=== PATIENT | female | born 1960 | race Caucasian/White ===

== ENCOUNTER 2017-01-18 07:09 | Day surgery (SDC) | payer OTHER ==
[2017-01-13 11:25] VITALS: BMI 53.0
[~2017-01-18] VITALS: Ht 167.6 cm; Wt 153.6 kg
[~2017-01-18 07:09] MED LIST: CEFAZOLIN 3000 MG/65 ML D5W IV SCH; CHOL1TAB2 PO; COEN150C4 PO; FURO-85 PO; LACTATED RINGER'S 1000ML 1,000 ML IV SCH; LEVO175T3 PO; MISCCAP80 PO; MULT-506 PO
[2017-01-18] MEDS ORDERED: ACET-1256 PO (07:36)
[2017-01-18 07:37] VITALS: BP 165/84; PULSE 86; TEMP 36.4; O2SAT 97; Ht 167.6 cm; Wt 153.6 kg
--- NOTE | 2017-01-18 08:11 | History & Physical Bridge Note ---
H&P Re-Evaluation Bridge Note: I have examined the patient, reviewed the History & Physical and in the interval since the performance of the History & Physical I have noted the following changes of clinical significance: No changes noted
[2017-01-18] MEDS ORDERED: ATROPINE SULFATE 0.1 MG/ML 5ML SYR IV PRN (08:15)
[2017-01-18] MEDS ORDERED: FENTANYL CITRATE INJ 50 MCG/1 ML 2 ML VIAL IV PRN (08:15)
[2017-01-18] MEDS ORDERED: HYDROmorphone INJ 1 MG/ML SYR IV PRN (08:15)
[2017-01-18] MEDS ORDERED: MEPERIDINE HCL 25 MG/ML CARP IV PRN (08:15)
[2017-01-18] MEDS ORDERED: ONDANSETRON INJ 2 MG/ML 2 ML VIAL IV PRN (08:15)
[2017-01-18] MEDS ORDERED: LABETALOL HCL IV 5 MG/ML 20ML IV PRN (08:15)
[2017-01-18] MEDS ORDERED: EpHEDrine SULFATE INJ 50 MG/ML AMP IV PRN (08:15)
[2017-01-18] MEDS ORDERED: LIDOCAINE HCL 1% 20 ML VIAL ONE (08:19)
[2017-01-18] MEDS ORDERED: LIDOCAINE 2% 20 MG/ML 5ML SYR ONE (08:19)
[2017-01-18] MEDS ORDERED: MIDAZOLAM HCL 1 MG/ML 2ML VIAL ONE ×3 (08:19→09:13)
[2017-01-18] MEDS ORDERED: FENTANYL CITRATE INJ 50 MCG/1 ML 2 ML VIAL ONE ×2 (08:19→09:12)
[2017-01-18] MEDS ORDERED: HEPARIN SOD (PORCINE) 1000 UNIT/ML 10 ML VIAL ONE (08:19)
[2017-01-18] MEDS ORDERED: BUPIVACAINE 0.5 % 5 MG/1 ML MPF 30ML VIAL ONE (08:19)
[2017-01-18] MEDS ORDERED: PROPOFOL IV EMULSION 10 MG/ML 20 ML VIAL IV ONE ×2 (08:19→09:09)
[2017-01-18] MEDS ORDERED: BACITRACIN OINT 15 GM TUBE ONE (08:20)
[2017-01-18 08:42] LABS: BUN/CREATININE RATIO 15.8 (10-20); CREATININE 0.55 mg/dl (0.60-1.20); POTASSIUM 3.5 mmol/L (3.5-5.1)
--- NOTE | 2017-01-18 09:51 | [facility] Post Operative Brief Note ---
Immediate Operative Summary Operative Date Jan 18, 2017. Pre-Operative Diagnosis Intravenous Access for chemotherapy Post-Operative Diagnosis Intravenous Access for chemotherapy Procedure(s) Performed Infusa-port Insertion into Right Internal Jugular Vein Surgeon Dr. Hernández Lumber Buyer Surgeon(s) none Estimated Blood Loss 5ml Findings normal finding Fluids (cc crystalloids) 1200ml Specimens None Drains none Anesthesia sedation + local Complication(s) None Disposition Recovery Room / PACU
[2017-01-18] MEDS ORDERED: SODIUM CHLORIDE 0.9% 1000ML 1,000 ML IV SCH (09:52)
[2017-01-18] MEDS ORDERED: OXYC-57 PO (09:55)
[2017-01-18] MEDS ORDERED: OXYCODONE/ACETAMINOPHEN 5-325 TAB PO PRN (10:00)
[2017-01-18] MEDS ORDERED: MoRPHine SULFATE 4 MG/ML 1 ML CARP\\VIAL IV PRN (10:00)
--- NOTE | 2017-01-18 10:02 | Discharge Instructions ---
Discharge Instructions Date of Service Jan 18, 2017. Visit Reason for Visit: Colon Cancer Discharge Discharge Diagnosis / Problem: S/P insertion of port catheter Discharge Goals Goal(s): Decrease discomfort, Improve function Activity Recommendations Activity Limitations: per Instructions/Follow-up section Lifting Limitations: no more than 25 pounds Exercise/Sports Limitations: gradually increase as tolerated May Resume Sexual Activity: when tolerated Shower/Bathe: may shower/bathe in 3 days Driving or Machine Use: resume 3 days after discharge Anesthesia . Post Anesthesia Instructions: If you have had General Anesthesia or IV Sedation: * Do not drive today. * Resume driving when surgeon permits. * Do not make important decisions or sign legal documents today. * Call surgeon for: 1. Temperature elevations greater than 101 degrees F. 2. Uncontrollable pain. 3. Excessive bleeding. 4. Persistent nausea and vomiting. 5. Medication intolerance (nausea, vomiting or rash). * For nausea and vomiting use only clear liquids such as: tea, soda, bouillon until nausea subsides, then gradually increase diet as tolerated. * If you have any concerns or questions, call your surgeon's office. If physician is unavailable and it is an emergency, call 911 or go to the nearest emergency room. . Instructions / Follow-Up Instructions / Follow-Up keep the dressing on for 4 days, she can take a shower on 01/22/2017, no driving while taking pain medicine, follow up 1 week, Diet Recommendations Recommended Home Diet: resume previous diet Procedures Procedures Performed: Infusa-port Insertion into Right Internal Jugular Vein Pending Studies Studies pending at discharge: no Medical Emergencies . Who to Call and When: Medical Emergencies: If at any time you feel your situation is an emergency, please call 911 immediately. . Non-Emergent Contact Non-Emergency issues call your: Surgeon Call Non-Emergent contact if: you have a fever, temperature is above 100.5, your pain is not controlled, your pain is worsening, wound has increased drainage, wound has increased redness . . "Provider Documentation" section prepared by Ez Hernández. [place] Drug Monitoring Program Search Results: no issues identified
[2017-01-18 10:17] VITALS: BP 124/93; PULSE 80; TEMP 36.5; O2SAT 96
--- NOTE | 2017-01-18 10:21 | DIAGNOSTIC IMAGING REPORT ---
CHEST ONE VIEW PORTABLE CLINICAL HISTORY: none dyspnea COMPARISON STUDY: 07/09/2010 FINDINGS: Moderate cardiomegaly. Central catheter in the superior vena cava. No evidence pneumothorax. IMPRESSION: Central catheter in the superior vena cava. No evidence of pneumothorax. Electronically signed by: Fredy Dunlap M.D. 01/18/2017 10:19 AM Dictated Date/Time: 01/18/2017 10:19 AM
--- NOTE | 2017-01-18 10:22 | Anesthesiology Progress Note ---
Anesthesia Post Op Note Date & Time Jan 18, 2017 at 10:21 Vital Signs Pain Intensity: 0 Vital Signs Past 12 Hours Date Time Temp Pulse Resp B/P Pulse Ox O2 Delivery O2 Flow Rate FiO2 01/18/17 10:05 36.0 74 17 129/80 100 Nasal Cannula 2 01/18/17 09:55 83 20 138/84 96 Nasal Cannula 2 01/18/17 09:49 36.0 78 12 142/78 98 Nasal Cannula 2 01/18/17 07:37 36.4 86 20 165/84 97 Room Air Notes Mental Status: alert / awake / arousable, participated in evaluation Pt Amnestic to Procedure: Yes Nausea / Vomiting: adequately controlled Pain: adequately controlled Airway Patency, RR, SpO2: stable & adequate BP & HR: stable & adequate Hydration State: stable & adequate Anesthetic Complications: no major complications apparent
--- NOTE | 2017-01-18 10:43 | OPERATIVE REPORT ---
DATE OF OPERATION: 01/18/2017 PREOPERATIVE DIAGNOSIS: Intravenous access for chemotherapy. POSTOPERATIVE DIAGNOSIS: Same. PROCEDURE: Port catheter insertion on the right internal jugular vein. SURGEON: Dr. Ez Hernández. COMPLICATIONS: None. FINDINGS: Normal findings. ESTIMATED BLOOD LOSS: About 5 mL. IV FLUIDS: 1200 mL. INDICATIONS FOR THE PROCEDURE: This is a 56-year-old female who was diagnosed with colon cancer. The patient in need [id number] insertion for chemotherapy. I did talk to the patient about the benefit and risk alternate procedure. I indicated the risks may include but not limited such as bleeding, infection, injury to the lung, may need chest tube insertion, dysfunction catheter, sepsis, and even . The patient understands. She signed informed consent and I answered all questions. DETAILS OF PROCEDURE: We brought the patient to the OR, put the patient in the supine position. The patient received SCD on bilateral legs to prevent DVT. The patient received 3 grams Ancef IV for prophylactic antibiotic. The patient received conscious sedation by the anesthesiology. I used ultrasound to locate the right internal jugular vein, put the marking pen whitney the site and then the patient's right side neck and upper chest was prepped and draped in routine sterile fashion. After time out, I injected local anesthesia by using 1% lidocaine mixed with 0.5% Marcaine on the right neck. Then I made a small incision about 0.5 cm and ultrasound guided I used a 15-gauge needle puncture the right internal jugular vein without difficulty. Good blood return. Then I passed the wire through the needle, removed the needle. Then I used the C-arm fluoro to confirm the catheter located in SVC. Then I injected local on the right side upper chest to make about 6 cm incision to create the pouch for the port. Hemostasis was obtained. Then I used the tunneler introducer connected to the pouch to the right neck incision, then I passed the catheter through the tunnel and then I used sheath catheter, passed the wire and introducer into the right internal jugular vein. I again used the C-arm conformed catheter located SVC. Then I passed the [id number] through the sheath. Then we removed the sheath. Again, used the C-arm to confirm the tip of the catheter located junction between the SVC to the right atrium. Then I sized the catheter, connected to the port. Then I used 2-0 Prolene to affix the port 3 points at 12 o'clock, 6 o'clock and 3 o'clock. I tied the suture and then using 2-0 Vicryl to close subcutaneous layer, interrupted and closed skin by using 4-0 Vicryl continuous running and then I used the injection needle connected to the port, easy blood returned. I injected the heparin saline about 10 mL through the port without difficulty. Then, we put the dressing on. The patient tolerated the procedure well. All the instrument, needle and sponge count correct x2 at the end of case. The patient transferred to recovery room in stable condition. After the procedure, I did talk to the patient and patient's family member about OR finding and procedure we did and also gave them the postop care instruction, they understand. I will follow up the patient in 1 week. I attest to the content of the Intraoperative Record and any orders documented therein. Any exceptions are noted below. MARTINEZ
[2017-01-18 10:45] VITALS: BP 131/76; PULSE 86; TEMP 36.5; O2SAT 96
[2017-01-19] MEDS ORDERED: CEFAZOLIN IV 2,000 MG/60 ML D5W IV ONE (06:00)
[2017-02-06] MEDS ORDERED: LEVO-459 PO (16:07)
== END 2017-01-18 11:15 | disposition home or self-care (01) ==
LOC: C.ACU 07:09
PROVIDERS: ATTEND Surgery
DX: C18.9 Malignant neoplasm of colon, unspecified (principal); C78.5 Secondary malignant neoplasm of large intestine and rectum; I10 Essential (primary) hypertension; M19.90 Unspecified osteoarthritis, unspecified site; E66.01 Morbid (severe) obesity due to excess calories; Z68.43 Body mass index [BMI] 50.0-59.9, adult; Z88.5 Allergy status to narcotic agent; Z90.89 Acquired absence of other organs; Z96.643 Presence of artificial hip joint, bilateral; Z98.890 Other specified postprocedural states

== ENCOUNTER 2017-02-04 23:33 | Inpatient (IN) | payer OTHER ==
[~2017-02-04] VITALS: Ht 170.2 cm; Wt 149.0 kg
[~2017-02-04 23:33] MED LIST changes: +ACET-1256 PO; -CEFAZOLIN 3000 MG/65 ML D5W IV SCH; -COEN150C4 PO; -LACTATED RINGER'S 1000ML 1,000 ML IV SCH
--- NOTE | 2017-02-05 01:19 | EMERGENCY ROOM VISIT NOTE ---
History Report prepared by Lazara: Sharon Ramachandran Under the Supervision of: Dr. Carin Fernández D.O. First contact with patient: 00:14 Chief Complaint: FEVER Stated Complaint: FEVER 101.7 History of Present Illness The patient is a 56 year old female who presents to the Emergency Room with complaints of a persistent fever that began today. She currently rates her discomfort as a 7/10 in severity. The patient states that she is currently undergoing chemotherapy for colon cancer that she has had for the past 10 years. She states that she is currently undergoing a new chemotherapy, noting increased, nausea, vomiting, and diarrhea. The patient states that she was supposed to receive chemotherapy , but did not because her white blood cell count was 2.45 and her ANC was 1.24. She states that she was told if she develops a fever she should go to the emergency department, noting that her fever was up to 101.7 degrees Fahrenheit today. The patient notes back pain, abdominal gas, and burning with urination today. She states that she had a port placed three weeks ago. The patient denies getting a flu shot this year. Source of History: patient Onset: today Position: other (global) Symptom Intensity: 7/10 Quality: other (fever) Timing: other (persistent) Associated Symptoms: + back pain, + diarrhea, + nausea, + urinary symptoms ( burning with urination), + vomiting Note: Associated Symptoms: abdominal gas+ Review of Systems See HPI for pertinent positives & negatives. A total of 10 systems reviewed and were otherwise negative. Past Medical & Surgical Medical Problems: (1) Cholelithiasis Nos (2) Hepatomegaly (3) Hx Of Colonic Malignancy (4) Hypertension Nos (5) Hypothyroidism (6) Hypothyroidism Nos (7) Mal Atul Rectosigmoid Jct (8) Sepsis Surgical Problems: (1) History of hysterectomy (2) S/P appendectomy (3) S/P cholecystectomy Family History Cancer Diabetes mellitus Gallbladder disease Hypertension Lung disease Social History Smoking Status: Never Smoker Alcohol Use: none Marital Status: Housing Status: lives alone Occupation Status: employed Current/Historical Medications Scheduled Cholecalciferol (Vitamin D-3), 1 TAB PO QAM Levothyroxine Sodium (Levothyroxine Sodium), 1 TAB PO QAM Multivitamin (Multivitamin), 1 TAB PO QAM Probiotic Product (Probiotic), 1 CAP PO QAM Scheduled PRN Acetaminophen (Tylenol), 1,000 MG PO Q6 PRN for Pain Furosemide (Lasix), 20 MG PO DAILY PRN for PRN Allergies Coded Allergies: Morphine (Verified Adverse Reaction, Intermediate, GI SYMPTOMS, CAUSES Nausea and vomitting, 02/05/17) Physical Exam Vital Signs Date Time Temp Pulse Resp B/P Pulse Ox O2 Delivery O2 Flow Rate FiO2 02/05/17 02:50 89 20 107/70 97 Room Air 02/04/17 23:52 38.5 92 20 193/92 97 Room Air Physical Exam HEENT: Head - normocephalic and atraumatic Pupils are equal, round, and reactive to light. Extraocular eye muscles are intact, and sclera are anicteric. Nose - moist nasal mucosa without discharge. Mouth - dry buccal mucosa. Oropharynx is nonerythematous and there is no tonsillar exudate or edema noted. Neck: Supple; no JVD, nuchal rigidity, cervical lymphadenopathy. Chest: Surgical scar on right anterior chest that is well healed. Heart: Regular rate and rhythm. There is a normal S1 and S2 with no murmurs, clicks, or gallops appreciated. Lungs: Clear to auscultation bilaterally with no wheezes, rales, or rhonchi. Abdomen: Soft, completely nontender, nondistended, with good bowel sounds. There are no palpable pulsatile masses or hepatosplenomegaly. There is no guarding, rigidity, or rebound noted. Extremities: No evidence of cyanosis, clubbing, or edema. There are easily palpable peripheral pulses. Skin: warm and dry with good turgor and no rashes. Medical Decision & Procedures ER Provider Diagnostic Interpretation: 1 view chest x-ray interpreted by me: mediport in place, no obvious pulmonary infiltrate Laboratory Results 02/05/17 01:55 Red Blood Count 3.75, Mean Corpuscular Volume 94.7, Mean Corpuscular Hemoglobin 32.3, Mean Corpuscular Hemoglobin Concent 34.1, Mean Platelet Volume 9.3, Neutrophils (%) (Auto) 42.1, Lymphocytes (%) (Auto) 40.4, Monocytes (%) (Auto) 14.7, Eosinophils (%) (Auto) 2.4, Basophils (%) (Auto) 0.4, Neutrophils # (Auto ) 1.03, Lymphocytes # (Auto) 0.99, Monocytes # (Auto) 0.36, Eosinophils # (Auto ) 0.06, Basophils # (Auto) 0.01 02/05/17 01:55 Test 02/05/17 01:55 02/05/17 02:01 White Blood Count 2.45 K/uL (4.8-10.8) Red Blood Count 3.75 M/uL (4.2-5.4) Hemoglobin 12.1 g/dL (12.0-16.0) Hematocrit 35.5 % (37-47) Mean Corpuscular Volume 94.7 fL (80-100) Mean Corpuscular Hemoglobin 32.3 pg (25-34) Mean Corpuscular Hemoglobin Concent 34.1 g/dl (32-36) Platelet Count 205 K/uL (130-400) Mean Platelet Volume 9.3 fL (7.4-10.4) Neutrophils (%) (Auto) 42.1 % Lymphocytes (%) (Auto) 40.4 % Monocytes (%) (Auto) 14.7 % Eosinophils (%) (Auto) 2.4 % Basophils (%) (Auto) 0.4 % Neutrophils # (Auto) 1.03 K/uL (1.4-6.5) Lymphocytes # (Auto) 0.99 K/uL (1.2-3.4) Monocytes # (Auto) 0.36 K/uL (0.11-0.59) Eosinophils # (Auto) 0.06 K/uL (0-0.5) Basophils # (Auto) 0.01 K/uL (0-0.2) RDW Standard Deviation 45.1 fL (36.4-46.3) RDW Coefficient of Variation 13.1 % (11.5-14.5) Immature Granulocyte % (Auto) 0.0 % Immature Granulocyte # (Auto) 0.00 K/uL (0.00-0.02) Prothrombin Time 11.7 SECONDS (9.0-12.0) Prothromb Time International Ratio 1.1 (0.9-1.1) Activated Partial Thromboplast Time 28.3 SECONDS (21.0-31.0) Partial Thromboplastin Ratio 1.1 Anion Gap 7.0 mmol/L (3-11) Est Creatinine Clear Calc Drug Dose 149.5 ml/min Estimated GFR () 114.6 Estimated GFR (Non- 98.9 BUN/Creatinine Ratio 13.8 (10-20) Calcium Level 7.8 mg/dl (8.5-10.1) Magnesium Level 1.9 mg/dl (1.8-2.4) Total Bilirubin 0.4 mg/dl (0.2-1) Aspartate Amino Transf (AST/SGOT) 34 U/L (15-37) Alanine Aminotransferase (ALT/SGPT) 51 U/L (12-78) Alkaline Phosphatase 103 U/L (45-117) Total Protein 6.4 gm/dl (6.4-8.2) Albumin 2.8 gm/dl (3.4-5.0) Globulin 3.6 gm/dl (2.5-4.0) Albumin/Globulin Ratio 0.8 (0.9-2) Thyroid Stimulating Hormone (TSH) 3.040 uIu/ml (0.300-4.500) Urine Color DK YELLOW Urine Appearance CLEAR (CLEAR) Urine pH 5.0 (4.5-7.5) Urine Specific Guild 1.022 (1.000-1.030) Urine Protein NEG (NEG) Urine Glucose (UA) NEG (NEG) Urine Ketones NEG (NEG) Urine Occult Blood NEG (NEG) Urine Nitrite NEG (NEG) Urine Bilirubin NEG (NEG) Urine Urobilinogen NEG (NEG) Urine Leukocyte Esterase TRACE (NEG) Urine WBC (Auto) 1-5 /hpf (0-5) Urine RBC (Auto) 0-4 /hpf (0-4) Urine Hyaline Casts (Auto) 1-5 /lpf (0-5) Urine Epithelial Cells (Auto) 10-20 /lpf (0-5) Urine Bacteria (Auto) NEG (NEG) Bedside Lactic Acid Venous 0.70 mmol/L (0.90-1.70) Laboratory results per my review. Medications Administered Medications (Trade) Dose Ordered Sig/Erlinda Route Start Time Stop Time Status Last Admin Dose Admin Piperacillin Sod/ Tazobactam Sod 4.5 gm 4.5 gm NOW STAT IV 02/05/17 03:10 02/05/17 03:13 DC 02/05/17 03:19 4.5 GM Vancomycin HCl/ Sodium Chloride (Vancomycin Inj/ Nss 250ml) 270 ml @ 125 mls/hr NOW STAT IV 02/05/17 03:10 02/05/17 05:19 DC 02/05/17 03:52 125 MLS/HR Procedure The patient was treated with Vancomycin HCl 1000 mg/Sodium Chloride 270 ml @ 125 mls/hr IV, Zosyn IV 4.5 gm IV. ECG Indication: other (fever) Rate (beats per minute): 87 Rhythm: normal sinus Findings: no acute ischemic change, no ectopy ED Course 0047: Past medical records reviewed. The patient was evaluated in room C2B. A complete history and physical exam was performed. A septic protocol was performed. The patient was placed in isolation for known neutropenia. The patient went for a chest x-ray as described above. 0150: The patient remained hemodynamically stable. Absolute neutrophil count remains low 0310: Ordered Vancomycin HCl 1000 mg/Sodium Chloride 270 ml @ 125 mls/hr IV, Zosyn IV 4.5 gm IV. 0312: I reevaluated the patient and she is resting comfortably. I discussed the exam findings with her and I discussed the treatment plan. She verbalized complete understanding and agreement. She will be evaluated for further treatment. 0322: I discussed the patients case with Angely Morales. He is going to evaluate the patient for further treatment. Medical Decision The patient is a 56 year old female who presents to the ED with a fever. Differential diagnosis includes sepsis, bacteremia, neutropenia, cystitis, pyelonephritis, gastroenteritis. Lab interpretation: lactic acid .7, white count 2.45, hemoglobin 12.1, neutrophil count 1.03, normal renal function, normal LFTs, normal glucose and TSH, normal CoAgs, urine positive for trace leukocyte esterase and positive epithelial cells This is a 48-year-old female patient with history of colon cancer receiving chemotherapy who presents to the emergency department with a fever. The patient was known to be neutropenic from a couple of days ago. Repeat laboratory studies today reveal similar findings. As for a source of the possible fever, the patient does describe some urinary symptoms and an occasional cough. The urine does not appear to be infected. The patient meets sepsis criteria with an unknown source. She is also neutropenic. She was prophylaxed with IV antibiotics. She remained hemodynamically stable throughout her stay here in the emergency department. I discussed the case with the [facility] Hospitalist and they will evaluate for further management. Consults Time Called: [phone] Consulting Physician: Angely Morales Returned Call: [phone] I discussed the patients case with Angely Morales. He is going to evaluate the patient for further treatment. Impression Primary Impression: Neutropenic sepsis Scribe Attestation The scribe's documentation has been prepared under my direction and personally reviewed by me in its entirety. I confirm that the note above accurately reflects all work, treatment, procedures, and medical decision making performed by me. Departure Information Dispostion Being Evaluated By Hospitalist Referrals Diogenes Garcia M.D. (PCP)
[2017-02-05 02:10] LABS: BASO % 0.4 %; BASO ABS # 0.01 K/uL (0-0.2); COMPLETE YES; EOS % 2.4 %; HEMATOCRIT 35.5 % (37-47); LYMPH % 40.4 %; LYMPH ABS # 0.99 K/uL (1.2-3.4); MEAN CELL VOLUME 94.7 fL (80-100); MEAN CORPUSCULAR HEMOGLOBIN 32.3 pg (25-34); MEAN CORPUSCULAR HGB CONC 34.1 g/dl (32-36); MEAN PLATELET VOLUME 9.3 fL (7.4-10.4); MONO % 14.7 %; NEUT % 42.1 %; PLATELET COUNT 205 K/uL (130-400); RED BLOOD COUNT 3.75 M/uL (4.2-5.4); WHITE BLOOD COUNT 2.45 K/uL (4.8-10.8)
[2017-02-05 02:17] LABS: URINE APPEARANCE CLEAR (CLEAR); URINE BILIRUBIN NEG (NEG); URINE COLOR DK YELLOW; URINE NITRITE NEG (NEG); URINE SPECIFIC GRAVITY 1.022 (1.000-1.030); UROBILINOGEN NEG (NEG); ZZUR CULT IF INDIC CLEAN CATCH NO
[2017-02-05 02:19] LABS: MANUAL MICROSCOPIC REQUIRED? NO; REVIEW REQ? NO
[2017-02-05 02:20] LABS: INR 1.1 (0.9-1.1); PARTIAL THROMBOPLASTIN RATIO 1.1; PROTHROMBIN TIME (PATIENT) 11.7 SECONDS (9.0-12.0)
[2017-02-05 02:28] LABS: BUN/CREATININE RATIO 13.8 (10-20); CALCIUM 7.8 mg/dl (8.5-10.1); CREATININE 0.63 mg/dl (0.60-1.20); POTASSIUM 3.7 mmol/L (3.5-5.1)
[2017-02-05 02:30] LABS: ALB/GLOB RATIO 0.8 (0.9-2)
[2017-02-05] MEDS ORDERED: PIPERACILLIN/TAZOBACTAM 4.5 GM/100ML D5W IV STA (03:10)
[2017-02-05] MEDS ORDERED: VANCOMYCIN INJ 1,000 MG in SODIUM CHLORIDE 0.9% 250ML 250 ML IV STA (03:10)
[2017-02-05 03:38] LABS: MAGNESIUM 1.9 mg/dl (1.8-2.4)
[2017-02-05 03:56] LABS: THYROID STIMULATING HORMONE 3.04 uIu/ml (0.300-4.500)
[2017-02-05] MEDS ORDERED: ACETAMINOPHEN 325 MG TAB PO PRN (04:00)
[2017-02-05] MEDS ORDERED: TRAMADOL HCL 50 MG TAB PO PRN (04:15)
[2017-02-05] MEDS ORDERED: ONDANSETRON INJ 2 MG/ML 2 ML VIAL IV PRN (04:15)
[2017-02-05] MEDS ORDERED: KETOROLAC TROMETHAMINE 30 MG/ML VIAL IV PRN (04:15)
[2017-02-05] MEDS ORDERED: LORAZEPAM 2 MG/ML 1 ML VIAL IV PRN (04:15)
[2017-02-05] MEDS ORDERED: ACETAMINOPHEN 325 MG TAB PO STA (04:22)
[2017-02-05] MEDS ORDERED: VANCOMYCIN INJ 1,800 MG in SODIUM CHLORIDE 0.9% 500ML 500 ML IV STA (04:58)
--- NOTE | 2017-02-05 06:09 | DIAGNOSTIC IMAGING REPORT ---
CHEST ONE VIEW PORTABLE CLINICAL HISTORY: Sepsis fever COMPARISON STUDY: 01/18/2017 FINDINGS: Central catheter in the proximal superior vena cava. Lungs remain generally clear. Moderate stable cardiomegaly. IMPRESSION: Chronic change. No acute process. Electronically signed by: Fredy Dunlap M.D. 02/05/2017 6:07 AM Dictated Date/Time: 02/05/2017 6:07 AM
[2017-02-05 06:13] VITALS: BP 143/82; PULSE 82; TEMP 37.1; O2SAT 96; BMI 49.4
[2017-02-05] MEDS ORDERED: NSS + 20MEQ KCL 1000ML 1,000 ML IV ONE (06:15)
[2017-02-05] MEDS ORDERED: METRONIDAZOLE / NSS 500 MG in PREMIXED NSS 100 ML IV STA (06:18)
[2017-02-05] MEDS: LEVOTHYROXINE 175 MCG TAB PO SCH (06:25)
--- NOTE | 2017-02-05 06:29 | HISTORY & PHYSICAL EXAMINATION ---
DATE OF ADMISSION: 02/04/2017 PRIMARY CARE DOCTOR: Dr. Garcia Hx obtained from px and records. CHIEF COMPLAINT: Fever. HISTORY OF PRESENT ILLNESS: Medical history is significant for recurrent colorectal cancer w/ poss lung mets status post surgery, radiation and ongoing chemotherapy; hypothyroidism. Recent confinement was in March 2015 for bowel obstruction, resolved with conservative management. Px was diagnosed to have rectal cancer in 2006. She underwent surgery, radiation and chemotherapy. 2008 - noted to have local recurrence; subsequently underwent APR and chemotherapy. 2011 - PET-CT showed increased activity in the pelvis. Ex-lap showed uterine involvement. Patient underwent a total abdominal hysterectomy bilateral salpingo oophorectomy and chemotx. June 2015 - PET-CT showed abnormal nodes, R groin Chemotherapy re-initiated. March 2016, CAT scan showed probable lung mets. Erbitux and Xeloda given. Progression of disease/CEA level increase despite chemotx. 12[place]2016 [place] [facility] [place]. [place] 01/2017 Aport placed. New chemotx agent (Irinotecan) initiated. Yesterday px had fever, increasing nausea, loose stools from ostomy, nonbloody, abdominal cramping. dry cough. dysuria sx. At the Emergency Room, the patient received Iv Vancomycin and Zosyn. MEDICAL HISTORY: As above. SURGERIES: She has had hysterectomy, oophorectomy, appendectomy, cholecystectomy and bowel surgery. HOME MEDICATIONS: Include; Tylenol, vitamin D, Lasix p.r.n., levothyroxine, multivitamins and probiotic. ALLERGIES: TO MORPHINE. FAMILY HISTORY: Hypertension. PERSONAL AND SOCIAL HISTORY: Nonsmoker. No chronic intake of alcoholic beverages. On disability. REVIEW OF SYSTEMS: As per HPI. all other ROS negative PHYSICAL EXAMINATION: VITAL SIGNS: Blood pressure was noted to be 193/92 later 130/80, pulse rate 90 , RR 20, temperature 38.5 and sats 97% on room air. GENERAL: Noted to be obese, comfortable, in no respiratory distress. SKIN: Normal color. HEENT: [place] palpebral conjunctivae. Dry mucosa. NECK: Short neck. CHEST: Clear to auscultation. HEART: Regular rate and rhythm. ABDOMEN: Abdominal distention, no overt tenderness. Ostomy bag noted. EXTREMITIES: Minimal LE edema. no tenderness NEUROLOGIC: No gross focality. LABORATORIES: Hemoglobin was noted to be 12.1, white cell count 2.45 and platelets 205. Sodium 139, potassium 3.7, chloride 107 CO2 27, BUN 9, creatinine 0.6 and glucose was noted to be 100. TSH 3.04 Chest x-ray; atelectasis, cardiomegaly as per my interpretation. UA trace WBC esterase is positive, with epithelial cells ASSESSMENT: Sepsis in an immunocompromised hx recurrent rectal cancer with possible lung metastasis sp surgery, radiation and ongoing chemotherapy. Possible sources : UTI, vascular device (Aport), C. diff, hypothyroidism, euthyroid as of today's TSH PLAN: GMF CS, stool C. diff Levaquin, IV Vancomycin for now de-escalate tx pending CS results availability Flagyl for presumptive C. diff in light of sepsis criteria. Discontinue Flagyl if C. diff negative. DVT prophylaxis, Lovenox subQ Full code. MTDD
[2017-02-05] MEDS ORDERED: LEVOFLOXACIN CONSULT ACTIVE PRN (08:00)
[2017-02-05] MEDS ORDERED: VANCOMYCIN CONSULT ACTIVE PRN (08:00)
[2017-02-05] MEDS: ENOXAPARIN 40 MG/0.4 ML SYR SQ SCH (08:09)
[2017-02-05] MEDS: LACTOBACILLUS ACIDOPHILUS (FLORANEX) TAB PO SCH (08:09)
[2017-02-05] MEDS: MULTIVITAMIN TAB PO SCH (08:09)
--- NOTE | 2017-02-05 09:43 | Pharmacy Progress Note ---
Pharmacy Antibiotic Consult Date of Service: February 05, 2017. Pharmacy Dosing Scope Pharmacy is consulted to initiate IV Vanco/PO LVQ dosing therapy, order appropriate labs and adjust drug dose/frequency. Subjective The patient is a 56 year old female admitted on February 05, 2017 at 03:58. Objective Height (Feet): 5 Height (Inches): 8.00 Weight (Kilograms): 147.400 Lab Results (24hrs): Test 02/05/17 01:55 02/05/17 02:01 White Blood Count 2.45 K/uL (4.8-10.8) Red Blood Count 3.75 M/uL (4.2-5.4) Hemoglobin 12.1 g/dL (12.0-16.0) Hematocrit 35.5 % (37-47) Mean Corpuscular Volume 94.7 fL (80-100) Mean Corpuscular Hemoglobin 32.3 pg (25-34) Mean Corpuscular Hemoglobin Concent 34.1 g/dl (32-36) Platelet Count 205 K/uL (130-400) Mean Platelet Volume 9.3 fL (7.4-10.4) Neutrophils (%) (Auto) 42.1 % Lymphocytes (%) (Auto) 40.4 % Monocytes (%) (Auto) 14.7 % Eosinophils (%) (Auto) 2.4 % Basophils (%) (Auto) 0.4 % Neutrophils # (Auto) 1.03 K/uL (1.4-6.5) Lymphocytes # (Auto) 0.99 K/uL (1.2-3.4) Monocytes # (Auto) 0.36 K/uL (0.11-0.59) Eosinophils # (Auto) 0.06 K/uL (0-0.5) Basophils # (Auto) 0.01 K/uL (0-0.2) RDW Standard Deviation 45.1 fL (36.4-46.3) RDW Coefficient of Variation 13.1 % (11.5-14.5) Immature Granulocyte % (Auto) 0.0 % Immature Granulocyte # (Auto) 0.00 K/uL (0.00-0.02) Prothrombin Time 11.7 SECONDS (9.0-12.0) Prothromb Time International Ratio 1.1 (0.9-1.1) Activated Partial Thromboplast Time 28.3 SECONDS (21.0-31.0) Partial Thromboplastin Ratio 1.1 Sodium Level 139 mmol/L (136-145) Potassium Level 3.7 mmol/L (3.5-5.1) Chloride Level 105 mmol/L (98-107) Carbon Dioxide Level 27 mmol/L (21-32) Anion Gap 7.0 mmol/L (3-11) Blood Urea Nitrogen 9 mg/dl (7-18) Creatinine 0.63 mg/dl (0.60-1.20) Est Creatinine Clear Calc Drug Dose 149.5 ml/min Estimated GFR () 114.6 Estimated GFR (Non- 98.9 BUN/Creatinine Ratio 13.8 (10-20) Random Glucose 100 mg/dl (70-99) Calcium Level 7.8 mg/dl (8.5-10.1) Magnesium Level 1.9 mg/dl (1.8-2.4) Total Bilirubin 0.4 mg/dl (0.2-1) Aspartate Amino Transf (AST/SGOT) 34 U/L (15-37) Alanine Aminotransferase (ALT/SGPT) 51 U/L (12-78) Alkaline Phosphatase 103 U/L (45-117) Total Protein 6.4 gm/dl (6.4-8.2) Albumin 2.8 gm/dl (3.4-5.0) Globulin 3.6 gm/dl (2.5-4.0) Albumin/Globulin Ratio 0.8 (0.9-2) Thyroid Stimulating Hormone (TSH) 3.040 uIu/ml (0.300-4.500) Urine Color DK YELLOW Urine Appearance CLEAR (CLEAR) Urine pH 5.0 (4.5-7.5) Urine Specific [place] 1.022 (1.000-1.030) Urine Protein NEG (NEG) Urine Glucose (UA) NEG (NEG) Urine Ketones NEG (NEG) Urine Occult Blood NEG (NEG) Urine Nitrite NEG (NEG) Urine Bilirubin NEG (NEG) Urine Urobilinogen NEG (NEG) Urine Leukocyte Esterase TRACE (NEG) Urine WBC (Auto) 1-5 /hpf (0-5) Urine RBC (Auto) 0-4 /hpf (0-4) Urine Hyaline Casts (Auto) 1-5 /lpf (0-5) Urine Epithelial Cells (Auto) 10-20 /lpf (0-5) Urine Bacteria (Auto) NEG (NEG) Bedside Lactic Acid Venous 0.70 mmol/L (0.90-1.70) Micro Results: Item Value Date Time Urine Culture Received 02/05/17 0201 Urine , Clean Catch Pending Blood Culture Received 02/05/17 0200 Blood Pending Blood Culture Received 02/05/17 0155 Blood Pending Assessment & Plan 02/05/17: Pt is a 56yo F p/w fever (38.5) and tachycardia. She is leukopenic 2/2 to recent initiation of Irinotecan ChTx. Today she is afebrile, RR/HR both WNL. UC and BCx2 are both currently pending. She does not have a h/o of MDRO. Renal fxn looks excellent. Pt population p'kinetics: t1/2: 6.6hrs and ke= 0.104. Her BMI is concerning for Vanco accumulation; however, she is immunosuppressed and feel comfortable going with a more aggressive Vanco dose for 24-48hrs. Vanco: * Received two Vanco LD doses totalling 19mg/kg + 1800mg * Set to receive Vanco 2200mg (~15mg/kg) IV every 8 hours. * Goal trough level estimate: between 15 - 20 mcg/mL. * Trough level has been ordered for: at 0530 prior to the third MD. PO LVQ: * Dosed correctly Thank you for consulting the pharmacy kinetic team and including us in the care of Ms. Martines. 02/06/17: Ms. Martines's trough came back supratherapeutic at 21.7mcg/mL. I suspect true Css to be closer to 25 or 30. I have scaled back on both the dose and dosing interval to decrease the peak and trough, respectively. New dose: Vanco: 2000mg (~13.5mg/kg) q10 set to start roughly ten hours after the last dose. New trough ordered for 02/07/17 @ 1130. Blood cx's both yield NGTD, Stool is negative for C.diff, MRSA nasal swab is negative. UC is still pending. She continues to be afebrile. Leukopenia continues. Pharmacy will continue to follow and will adjust dose/frequency as necessary. Thank you
[2017-02-05] MEDS: LEVOFLOXACIN 750 MG TAB PO SCH (11:29)
[2017-02-05 11:36] VITALS: BP 127/77; PULSE 74; TEMP 36.7; O2SAT 100
[2017-02-05] MEDS ORDERED: METRONIDAZOLE / NSS 500 MG in PREMIXED NSS 100 ML IV SCH (14:00)
[2017-02-05] MEDS: VANCOMYCIN INJ 2,200 MG in SODIUM CHLORIDE 0.9% 500ML 500 ML IV SCH ×2 (14:12→21:49)
[2017-02-05 15:05] VITALS: BP 129/78; PULSE 86; TEMP 37.2; O2SAT 91
--- NOTE | 2017-02-05 17:06 | Progress Note ---
Internal Med Progress Note Date of Service: February 05, 2017. Provider Documentation: SUBJECTIVE: no fever or chills feels fine complains of being constipated no nausea or abdominal pain OBJECTIVE: Vital Signs-as noted below Exam: General-no sign of distress Lungs-CTA Heart-regular S1/S2 Abdomen-soft non tender Extremities-no rash or deformity Neuro-AAO x3, no focal deficit Lab data as noted below. ASSESSMENT & PLAN: This is a [age] yo F hx of colon ca on chemo tx presented to ED with fever, tachycardia FEVER IN AN IMMUNOCOMPROMISED PT : no evidence of sepsis , normal lactic acid , hx of recurrent colon ca sp surgery, radiation and ongoing chemotherapy recent initiation of Irinotecan ChTx. ordered for blood and urine culture -report pending pt will be continued with Vanco and Cefepime till final culture is available stool C diff negative Flagyl D.fernando PANCYTOPENIA : due to recent chemo follow daily CBC with diff DVT PROPHYLAXIS Lovenox DISPOSITION discharge home when medically stable Vital Signs: Date Time Temp Pulse Resp B/P Pulse Ox O2 Delivery O2 Flow Rate FiO2 02/05/17 20:00 Room Air 02/05/17 19:37 37.2 92 20 127/76 99 Room Air 02/05/17 15:32 Room Air 02/05/17 15:05 37.2 86 18 129/78 91 Room Air 02/05/17 11:36 36.7 74 20 127/77 100 Room Air 02/05/17 08:20 Room Air 02/05/17 06:13 37.1 82 16 143/82 96 Room Air 02/05/17 04:59 37.3 85 20 106/65 97 Room Air 02/05/17 02:50 89 20 107/70 97 Room Air 02/04/17 23:52 38.5 92 20 193/92 97 Room Air Lab Results: Results Past 24 Hours Test 02/05/17 01:55 02/05/17 02:01 Range/Units White Blood Count 2.45 4.8-10.8 K/uL Red Blood Count 3.75 4.2-5.4 M/uL Hemoglobin 12.1 12.0-16.0 g/dL Hematocrit 35.5 37-47 % Mean Corpuscular Volume 94.7 80-100 fL Mean Corpuscular Hemoglobin 32.3 25-34 pg Mean Corpuscular Hemoglobin Concent 34.1 32-36 g/dl Platelet Count 205 130-400 K/uL Mean Platelet Volume 9.3 7.4-10.4 fL Neutrophils (%) (Auto) 42.1 % Lymphocytes (%) (Auto) 40.4 % Monocytes (%) (Auto) 14.7 % Eosinophils (%) (Auto) 2.4 % Basophils (%) (Auto) 0.4 % Neutrophils # (Auto) 1.03 1.4-6.5 K/uL Lymphocytes # (Auto) 0.99 1.2-3.4 K/uL Monocytes # (Auto) 0.36 0.11-0.59 K/uL Eosinophils # (Auto) 0.06 0-0.5 K/uL Basophils # (Auto) 0.01 0-0.2 K/uL RDW Standard Deviation 45.1 36.4-46.3 fL RDW Coefficient of Variation 13.1 11.5-14.5 % Immature Granulocyte % (Auto) 0.0 % Immature Granulocyte # (Auto) 0.00 0.00-0.02 K/uL Prothrombin Time 11.7 9.0-12.0 SECONDS Prothromb Time International Ratio 1.1 0.9-1.1 Activated Partial Thromboplast Time 28.3 21.0-31.0 SECONDS Partial Thromboplastin Ratio 1.1 Sodium Level 139 136-145 mmol/L Potassium Level 3.7 3.5-5.1 mmol/L Chloride Level 105 98-107 mmol/L Carbon Dioxide Level 27 21-32 mmol/L Anion Gap 7.0 3-11 mmol/L Blood Urea Nitrogen 9 7-18 mg/dl Creatinine 0.63 0.60-1.20 mg/dl Est Creatinine Clear Calc Drug Dose 149.5 ml/min Estimated GFR () 114.6 Estimated GFR (Non- 98.9 BUN/Creatinine Ratio 13.8 10-20 Random Glucose 100 70-99 mg/dl Calcium Level 7.8 8.5-10.1 mg/dl Magnesium Level 1.9 1.8-2.4 mg/dl Total Bilirubin 0.4 0.2-1 mg/dl Aspartate Amino Transf (AST/SGOT) 34 15-37 U/L Alanine Aminotransferase (ALT/SGPT) 51 12-78 U/L Alkaline Phosphatase 103 45-117 U/L Total Protein 6.4 6.4-8.2 gm/dl Albumin 2.8 3.4-5.0 gm/dl Globulin 3.6 2.5-4.0 gm/dl Albumin/Globulin Ratio 0.8 0.9-2 Thyroid Stimulating Hormone (TSH) 3.040 0.300-4.500 uIu/ml Urine Color DK YELLOW Urine Appearance CLEAR CLEAR Urine pH 5.0 4.5-7.5 Urine Specific [place] 1.022 1.000-1.030 Urine Protein NEG NEG Urine Glucose (UA) NEG NEG Urine Ketones NEG NEG Urine Occult Blood NEG NEG Urine Nitrite NEG NEG Urine Bilirubin NEG NEG Urine Urobilinogen NEG NEG Urine Leukocyte Esterase TRACE NEG Urine WBC (Auto) 1-5 0-5 /hpf Urine RBC (Auto) 0-4 0-4 /hpf Urine Hyaline Casts (Auto) 1-5 0-5 /lpf Urine Epithelial Cells (Auto) 10-20 0-5 /lpf Urine Bacteria (Auto) NEG NEG Bedside Lactic Acid Venous 0.70 0.90-1.70 mmol/L Microbiology Results 02/05/17 Blood Culture, Received Pending 02/05/17 Blood Culture, Received Pending 02/05/17 C.difficile Toxin B Gene (PCR) - Final, Complete No C. difficile toxin B gene detected 02/05/17 Urine Culture, Received Pending
[2017-02-05 19:37] VITALS: BP 127/76; PULSE 92; TEMP 37.2; O2SAT 99
[2017-02-05] MEDS ORDERED: SODIUM CHLORIDE 0.9% 1000ML 1,000 ML IV SCH (23:00)
[2017-02-05] MEDS ORDERED: POLYETHYLENE (MIRALAX) 17 GM PACK PO PRN (23:00)
[2017-02-05 23:15] VITALS: BP 106/72; PULSE 90; TEMP 37.1; O2SAT 98
[2017-02-06 04:47] VITALS: BP 102/65; PULSE 89; TEMP 37.2; O2SAT 92
[2017-02-06 05:03] VITALS: Ht 170.2 cm; Wt 149.0 kg
[2017-02-06] MEDS ORDERED: VANCOMYCIN TROUGH ONE (05:30)
[2017-02-06] MEDS: VANCOMYCIN INJ 2,200 MG in SODIUM CHLORIDE 0.9% 500ML 500 ML IV SCH (05:44)
[2017-02-06] MEDS: LEVOTHYROXINE 175 MCG TAB PO SCH (05:46)
[2017-02-06 06:07] LABS: BASO % 0.8 %; BASO ABS # 0.02 K/uL (0-0.2); COMPLETE YES; EOS % 2.7 %; HEMATOCRIT 34.6 % (37-47); IG% 0.4 %; LYMPH % 33.6 %; LYMPH ABS # 0.88 K/uL (1.2-3.4); MEAN CELL VOLUME 95.6 fL (80-100); MEAN CORPUSCULAR HEMOGLOBIN 31.5 pg (25-34); MEAN CORPUSCULAR HGB CONC 32.9 g/dl (32-36); MEAN PLATELET VOLUME 9.4 fL (7.4-10.4); MONO % 21.4 %; NEUT % 41.1 %; PLATELET COUNT 194 K/uL (130-400); RED BLOOD COUNT 3.62 M/uL (4.2-5.4); WHITE BLOOD COUNT 2.62 K/uL (4.8-10.8)
[2017-02-06 07:32] VITALS: BP 101/65; PULSE 83; TEMP 37.1; O2SAT 97
[2017-02-06] MEDS: LACTOBACILLUS ACIDOPHILUS (FLORANEX) TAB PO SCH (08:57)
[2017-02-06] MEDS: MULTIVITAMIN TAB PO SCH (08:57)
[2017-02-06] MEDS: ENOXAPARIN 40 MG/0.4 ML SYR SQ SCH (08:57)
[2017-02-06 10:01] LABS: CREATININE 0.69 mg/dl (0.60-1.20)
[2017-02-06 11:23] VITALS: BP 121/82; PULSE 71; TEMP 36.9; O2SAT 99
[2017-02-06] MEDS: LEVOFLOXACIN 750 MG TAB PO SCH (11:28)
--- NOTE | 2017-02-06 13:10 | Discharge Instructions ---
Discharge Instructions Date of Service February 06, 2017. Admission Reason for Admission: Sepsis Discharge Discharge Diagnosis / Problem: NEUTROPENIC FEVER /HX OF RECTAL CA ON CHEMO Discharge Goals Goal(s): Decrease discomfort, Increase independence, Diagnostic testing Activity Recommendations Activity Limitations: resume your previous activity . Instructions / Follow-Up Instructions / Follow-Up HOSPITAL FOLLOW UP WITH YOUR FAMILY PHYSICIAN DR ALY IN A WEEK LAB WORK : COMPLETE BLOOD COUNT IN A WEEK PLEASE RETURN TO HOSPITAL WITH ANY EVENT OF FEVER , CHILLS , ABDOMINAL PAIN Current Hospital Diet Patient's current hospital diet: Low Lactose Diet Discharge Diet Recommended Diet: Low Lactose Diet Pending Studies Studies pending at discharge: yes List of pending studies: COMPLETE BLOOD COUNT IN A WEEK Medical Emergencies . Who to Call and When: Medical Emergencies: If at any time you feel your situation is an emergency, please call 911 immediately. . Non-Emergent Contact Non-Emergency issues call your: Primary Care Provider . . "Provider Documentation" section prepared by Ramandeep Kumar. . VTE Core Measure Inpt VTE Proph given/why not?: Unfractionated heparin SQ [place] Drug Monitoring Program Search Results: no issues identified
[2017-02-06] MEDS ORDERED: NURSING VERBAL MED ORDER ONE (15:15)
[2017-02-06 15:18] VITALS: BP 127/83; PULSE 76; TEMP 36.8; O2SAT 97
[2017-02-06] MEDS ORDERED: VANCOMYCIN INJ 2,000 MG in SODIUM CHLORIDE 0.9% 500ML 500 ML IV SCH (16:00)
[2017-02-06] MEDS ORDERED: LEVO-459 PO (16:07)
--- NOTE | 2017-02-06 16:08 | Discharge Summary ---
Discharge Summary Date of Service February 06, 2017. Discharge Summary Admission Date: February 05, 2017 at 03:58 Discharge Date: February 06, 2017 Discharge Disposition: Home Principal Diagnosis: NEUTROPENIC FEVER /HX OF RECTAL CA ON CHEMO Procedures: CHEST ONE VIEW PORTABLE CLINICAL HISTORY: Sepsis fever COMPARISON STUDY: 01/18/2017 FINDINGS: Central catheter in the proximal superior vena cava. Lungs remain generally clear. Moderate stable cardiomegaly. IMPRESSION: Chronic change. No acute process. Pending Studies/Follow-Up: HOSPITAL FOLLOW UP WITH YOUR FAMILY PHYSICIAN DR ALY IN A WEEK LAB WORK : COMPLETE BLOOD COUNT IN A WEEK PLEASE RETURN TO HOSPITAL WITH ANY EVENT OF FEVER , CHILLS , ABDOMINAL PAIN Medication Reconciliation New Medications: Levofloxacin (Levaquin) 500 Mg Tab 1 TAB PO DAILY for 2 Days, #2 TAB Continued Medications: Acetaminophen (Tylenol) 500 Mg Tab 1000 MG PO Q6 PRN for Pain, TAB Cholecalciferol (Vitamin D-3) 1,000 Unit Tab 1 TAB PO QAM Furosemide (Lasix) 20 Mg Tab 20 MG PO DAILY PRN for PRN, TAB Levothyroxine Sodium (Levothyroxine Sodium) 175 Mcg Tab 1 TAB PO QAM, TAB 3 Refills Multivitamin (Multivitamin) Tab 1 TAB PO QAM, TAB Probiotic Product (Probiotic) 1 Cap Cap 1 CAP PO QAM Referrals At Discharge Follow up Referrals: Physician Referral - Please Call For Appointment with Diogenes Aly M.D. Admission Information HPI (per Admitting provider): DATE OF ADMISSION: 02/04/2017 PRIMARY CARE DOCTOR: Dr. Aly Hx obtained from px and records. CHIEF COMPLAINT: Fever. HISTORY OF PRESENT ILLNESS: Medical history is significant for recurrent colorectal cancer w/ poss lung mets status post surgery, radiation and ongoing chemotherapy; hypothyroidism. Recent confinement was in March 2015 for bowel obstruction, resolved with conservative management. Px was diagnosed to have rectal cancer in 2006. She underwent surgery, radiation and chemotherapy. 2008 - noted to have local recurrence; subsequently underwent APR and chemotherapy. 2011 - PET-CT showed increased activity in the pelvis. Ex-lap showed uterine involvement. Patient underwent a total abdominal hysterectomy bilateral salpingo oophorectomy and chemotx. June 2015 - PET-CT showed abnormal nodes, R groin Chemotherapy re-initiated. March 2016, CAT scan showed probable lung mets. Erbitux and Xeloda given. Progression of disease/CEA level increase despite chemotx. 12/2016 [place] [facility] [place]. Kohli[place] 01/2017 Aport placed. New chemotx agent (Irinotecan) initiated. Yesterday px had fever, increasing nausea, loose stools from ostomy, nonbloody, abdominal cramping. dry cough. dysuria sx. At the Emergency Room, the patient received Iv Vancomycin and Zosyn. MEDICAL HISTORY: As above. SURGERIES: She has had hysterectomy, oophorectomy, appendectomy, cholecystectomy and bowel surgery. HOME MEDICATIONS: Include; Tylenol, vitamin D, Lasix p.r.n., levothyroxine, multivitamins and probiotic. ALLERGIES: TO MORPHINE. FAMILY HISTORY: Hypertension. PERSONAL AND SOCIAL HISTORY: Nonsmoker. No chronic intake of alcoholic beverages. On disability. Physical Exam (per Admitting): REVIEW OF SYSTEMS: As per HPI. all other ROS negative PHYSICAL EXAMINATION: VITAL SIGNS: Blood pressure was noted to be 193/92 later 130/80, pulse rate 90 , RR 20, temperature 38.5 and sats 97% on room air. GENERAL: Noted to be obese, comfortable, in no respiratory distress. SKIN: Normal color. HEENT: [place] palpebral conjunctivae. Dry mucosa. NECK: Short neck. CHEST: Clear to auscultation. HEART: Regular rate and rhythm. ABDOMEN: Abdominal distention, no overt tenderness. Ostomy bag noted. EXTREMITIES: Minimal LE edema. no tenderness NEUROLOGIC: No gross focality. Hospital Course This is a [age] yo F hx of colon ca on chemo tx presented to ED with fever, tachycardia feel fine today , has been afebrile for past 24 hrs appetite to baseline, energy improved no nausea no dysuria feels ready to be discharged home P/E: GEN ; no sign of distress HEENT : sclera non icteric HT : regular S1/S2 LUNGS: CTA no wheeze or rales ABDOMEN : soft, non tender EXT : no rash or deformity NEURO: no focal neurological deficit A/P : FEVER IN AN IMMUNOCOMPROMISED PT : resolved, no afebrile for the past > 24 hrs neutropenia due to chemo tx -improving no evidence of sepsis , normal lactic acid , hx of recurrent colon ca sp surgery, radiation and ongoing chemotherapy recent initiation of Irinotecan ChTx. ordered for blood and urine culture -no growth stool C diff negative will D/C Vancomycin Levaquin PO complete course -possible UTI ( had c/o dysuria . UA + leukocyte esterase , urine culture -pin point growth ) stable to be discharged home today hospital follow up with Family Physician in a week repeat lab work : CBC in a week Heme/onc follow up with Dr Kohli as per schedule PANCYTOPENIA : due to recent chemo improving follow out pt CBC DVT PROPHYLAXIS Lovenox DISPOSITION discharge home today Total time spent on discharge = This includes examination of the patient, discharge planning, medication reconciliation, and communication with other providers. Discharge Instructions Discharge Instructions Date of Service February 06, 2017. Admission Reason for Admission: Sepsis Discharge Discharge Diagnosis / Problem: NEUTROPENIC FEVER /HX OF RECTAL CA ON CHEMO Discharge Goals Goal(s): Decrease discomfort, Increase independence, Diagnostic testing Activity Recommendations Activity Limitations: resume your previous activity . Instructions / Follow-Up Instructions / Follow-Up HOSPITAL FOLLOW UP WITH YOUR FAMILY PHYSICIAN DR ALY IN A WEEK LAB WORK : COMPLETE BLOOD COUNT IN A WEEK PLEASE RETURN TO HOSPITAL WITH ANY EVENT OF FEVER , CHILLS , ABDOMINAL PAIN Current Hospital Diet Patient's current hospital diet: Low Lactose Diet Discharge Diet Recommended Diet: Low Lactose Diet Pending Studies Studies pending at discharge: yes List of pending studies: COMPLETE BLOOD COUNT IN A WEEK Medical Emergencies . Who to Call and When: Medical Emergencies: If at any time you feel your situation is an emergency, please call 911 immediately. . Non-Emergent Contact Non-Emergency issues call your: Primary Care Provider . . "Provider Documentation" section prepared by Ramandeep Kumar. . VTE Core Measure Inpt VTE Proph given/why not?: Unfractionated heparin SQ [place] Drug Monitoring Program Search Results: no issues identified Additional Copies To Diogenes Aly M.D., David W., M.D.
[2017-02-06 16:23] VITALS: O2SAT 97
[2017-02-06 16:27] VITALS: BP 127/83; PULSE 76; TEMP 36.8; O2SAT 97
[2017-02-07] MEDS ORDERED: VANCOMYCIN TROUGH ONE (11:30)
== END 2017-02-06 17:35 | disposition home or self-care (01) | DRG 809 ==
LOC: CANRESERV → ENRESERVTM → ENRESERVDT → C.EDB 23:34 → C.4E 02-05 03:58
PROVIDERS: ADMIT Internal Medicine; ATTEND Hospitalist
DX: D70.9 Neutropenia, unspecified (principal); C18.9 Malignant neoplasm of colon, unspecified; D61.810 Antineoplastic chemotherapy induced pancytopenia; I10 Essential (primary) hypertension; E03.9 Hypothyroidism, unspecified; Z92.21 Personal history of antineoplastic chemotherapy; Z79.899 Other long term (current) drug therapy; Z92.3 Personal history of irradiation; T45.1X5A Adverse effect of antineoplastic and immunosuppressive drugs, initial encounter

== ENCOUNTER 2018-01-24 09:35 | Inpatient (IN) | payer OTHER ==
[~2018-01-24] VITALS: Ht 172.7 cm; Wt 104.4 kg
[~2018-01-24 09:35] MED LIST changes: -CHOLTAB11 PO; -LISI-461 PO; -LISI-729 PO; -MAGN1CAP2 PO; -NRV5 PO; -ONDA8TAB62 SL; -PROM25TA9 PO; -PYRI100T4 PO
[2018-01-24] MEDS ORDERED: SODIUM CHLORIDE 0.9% 1000ML 1,000 ML IV STA (09:54)
[2018-01-24] MEDS ORDERED: KETOROLAC TROMETHAMINE 30 MG/ML VIAL IV STA (09:54)
[2018-01-24] MEDS ORDERED: ONDANSETRON INJ 2 MG/ML 2 ML VIAL IV STA (09:54)
[2018-01-24] MEDS ORDERED: OPTIRAY 320 IV PRN (10:00)
[2018-01-24 10:19] LABS: BASO % 0.3 %; BASO ABS # 0.02 K/uL (0-0.2); EOS % 0.8 %; EOS ABS # 0.05 K/uL (0-0.5); HEMATOCRIT 34.3 % (37-47); HEMOGLOBIN 11.2 g/dL (12.0-16.0); IG# 0.03 K/uL (0.00-0.02); LYMPH ABS # 0.62 K/uL (1.2-3.4); MEAN CELL VOLUME 92.2 fL (80-100); MEAN CORPUSCULAR HEMOGLOBIN 30.1 pg (25-34); MEAN CORPUSCULAR HGB CONC 32.7 g/dl (32-36); MEAN PLATELET VOLUME 8.9 fL (7.4-10.4); MONO % 13.4 %; MONO ABS # 0.83 K/uL (0.11-0.59); NEUT ABS # 4.63 K/uL (1.4-6.5); PLATELET COUNT 325 K/uL (130-400); RED CELL DISTRIBUTION WIDTH CV 15.3 % (11.5-14.5); RED CELL DISTRIBUTION WIDTH SD 51.9 fL (36.4-46.3); WHITE BLOOD COUNT 6.18 K/uL (4.8-10.8)
--- NOTE | 2018-01-24 10:21 | EMERGENCY ROOM VISIT NOTE ---
History Report prepared by Lazara: Giles Guidry Under the Supervision of: Dr. Filiberto Zafar M.D. First contact with patient: 09:51 Chief Complaint: VOMITING Stated Complaint: VOMITING,PAIN IN BELLY & BACK History of Present Illness The patient is a 57 year old female who presents to the Emergency Room with complaints of persistent abdominal pain for the past three days. The patient states that her pain is currently a 5-6 in severity, and she notes that it can get up to 10/10 in severity. She additionally notes that the pain is radiating into her back and hips, and she states that she has been nauseous and vomiting especially after eating food. The patient states that she has a history of a bowel obstruction, and she states that she has been having similar symptoms. The last time she had an obstruction she ended up needing an NGT. She reports that she currently has a colostomy, and she has not had any output for the past 2 days. The patient states that she currently has colon cancer, and she last had chemotherapy 1 month ago. She states that she had a fever up to 99.8, and she feels a pressure in her abdomen. The patient states that she has taken some medications for nausea when needed. Source of History: patient Onset: three days Position: abdomen Symptom Intensity: 5-6/10 Timing: other (persistent) Associated Symptoms: + fevers, + nausea, + vomiting Note: Associated symptoms: Pressure in her abdomen. Pain radiating into her back and hips. Review of Systems See HPI for pertinent positives & negatives. A total of 10 systems reviewed and were otherwise negative. 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 Surgical Problems: (1) History of hysterectomy (2) S/P appendectomy (3) S/P cholecystectomy Social History Problems: (1) Cholelithiasis Nos (2) Sepsis Family History Cancer Diabetes mellitus Gallbladder disease Hypertension Lung disease Social History Smoking Status: Never Smoker Alcohol Use: none Marital Status: Housing Status: lives alone Occupation Status: employed Current/Historical Medications Scheduled Cholecalciferol (D-5000), 1 TAB PO DAILY Enteral Nutrition Formula (Nutritional Supplement), 500-1,000 MG PO DAILY Levothyroxine Sodium (Levothyroxine Sodium), 1 TAB PO QAM Lisinopril (Lisinopril), 1 TAB PO DAILY Magnesium Oxide (Mg Supplement (Magnesium), 1 TAB PO DAILY Multivitamin (Multivitamin), 1 TAB PO QAM Pyridoxine (Vitamin B6), 100 MG PO DAILY Scheduled PRN Acetaminophen (Tylenol), 1,000 MG PO Q6 PRN for Pain Ondansetron Odt (Zofran Odt), 8 MG SL Q6H PRN for Nausea Promethazine Hcl (Phenergan), 25 MG PO Q4H PRN for Nausea Allergies Coded Allergies: Morphine (Verified Adverse Reaction, Intermediate, GI SYMPTOMS, CAUSES Nausea and vomitting, 01/24/18) Physical Exam Vital Signs Date Time Temp Pulse Resp B/P (MAP) Pulse Ox O2 Delivery O2 Flow Rate FiO2 01/24/18 11:28 81 18 179/95 100 Room Air 01/24/18 09:41 37.2 94 18 171/116 97 Room Air Physical Exam GENERAL: Patient is in no acute distress. HEENT: No acute trauma, normocephalic atraumatic, mucous membranes moist, no nasal congestion, no scleral icterus. NECK: No stridor, no adenopathy, no meningismus, trachea is midline. LUNGS: Clear to auscultation bilaterally, no wheeze, no rhonchi, breath sounds equal. HEART: Without murmurs gallops or rubs, regular rate and rhythm. ABDOMEN: Soft, no peritonitis. There is a mass or fullness in the epigastric area. Mildly tender in the epigastric region. There is a colostomy on the left with an empty bag. EXTREMITIES: No cyanosis or edema, full range of motion of all the joints without pain or difficulty, no signs for acute trauma. NEUROLOGIC: Oriented x 3, no acute motor or sensory deficits, no focal weakness. SKIN: No rash, no jaundice, no diaphoresis. Medical Decision & Procedures ER Provider Diagnostic Interpretation: Radiology results as stated below per my review and radiologist interpretation: CHEST ONE VIEW PORTABLE CLINICAL HISTORY: Abdominal pain and vomiting. COMPARISON STUDY: Chest radiograph November 26, 2017. FINDINGS: A left subclavian pacemaker is in place. No lucency is identified under the hemidiaphragms to suggest pneumoperitoneum. Cardiac size is at the upper limits of normal. There is no pneumothorax or pleural effusion. No consolidation is noted. Pulmonary vascularity is normal. IMPRESSION: No acute cardiopulmonary findings. Electronically signed by: Joao Crespo M.D. 01/24/2018 10:37 AM Dictated Date/Time: 01/24/2018 10:[address] OF THE ABDOMEN AND PELVIS WITH CONTRAST CLINICAL HISTORY: Abdominal pain and vomiting. Possible bowel obstruction. History of rectal cancer. COMPARISON STUDY: CT of the abdomen and pelvis March 20, 2015 and PET/CT June 04, 2015. TECHNIQUE: Following IV administration of 120 mL of Optiray-320, axial images of the abdomen and pelvis were obtained from the lung bases to the proximal femurs. Images were reviewed in the axial, sagittal, and coronal planes. IV contrast was administered without complication. A dose lowering technique was utilized adhering to the principles of ALARA. CT DOSE: 872.87 mGy.cm FINDINGS: Visualized portions of the lower chest demonstrate multiple pulmonary nodules which are new since CT of March 20, 2015, including a 7 mm left lower lobe pulmonary nodule. No pneumatosis, free air or portal venous gas is present. There is no biliary ductal dilatation. No hepatic lesions are present. The spleen and adrenal glands are unremarkable. There is pancreatic glandular atrophy without pancreatic ductal dilatation. There is no hydronephrosis. There has been interval development of a large conglomerate retroperitoneal fernando mass that measures approximately 14 x 10.7 x 8.8 cm. This encases the abdominal aorta, IVC and encases or occludes the left renal vein. Areas of suspected necrosis are noted. Several nodes are partially calcified. There are also enlarged retrocrural lymph nodes which measure up to 1.4 cm. Enlarged bilateral iliac nodes are noted as well as bilateral inguinal nodes. Index right external iliac node measures 3.4 cm and an index right inguinal node measures 3.7 cm. A left lower quadrant descending colostomy with parastomal hernia is noted. This contains multiple loops of small bowel without resultant bowel obstruction. There is also an umbilical hernia which contains small bowel. There is no evidence for a bowel obstruction. Minimal presacral infiltration is unchanged and likely postsurgical. There are bilateral hip arthroplasties. No suspicious osseous lesions are identified. IMPRESSION: 1. Interval development of a large conglomerate retroperitoneal fernando mass that encases the abdominal aorta, the IVC and multiple additional abdominal vessels, as described above. In addition, extensive bilateral iliac chain and inguinal lymphadenopathy. The findings are consistent with a neoplastic process and favor metastatic rectal carcinoma given the clinical history. However, lymphoma could appear similar. The right inguinal lymph nodes would be amenable to ultrasound-guided percutaneous biopsy. Findings discussed with Dr. Zafar at time of dictation. 2. Status post rectal resection with left lower quadrant descending colostomy. Associated parastomal hernia which contains multiple small bowel loops. No bowel obstruction. 3. Interval development of multiple lower lung nodules which suggest metastatic disease. Electronically signed by: Joao Crespo M.D. 01/24/2018 11:20 AM Dictated Date/Time: 01/24/2018 11:00 AM Laboratory Results 01/24/18 10:05 Red Blood Count 3.72, Mean Corpuscular Volume 92.2, Mean Corpuscular Hemoglobin 30.1, Mean Corpuscular Hemoglobin Concent 32.7, Mean Platelet Volume 8.9, Neutrophils (%) (Auto) 75.0, Lymphocytes (%) (Auto) 10.0, Monocytes (%) (Auto) 13.4, Eosinophils (%) (Auto) 0.8, Basophils (%) (Auto) 0.3, Neutrophils # (Auto ) 4.63, Lymphocytes # (Auto) 0.62, Monocytes # (Auto) 0.83, Eosinophils # (Auto ) 0.05, Basophils # (Auto) 0.02 01/24/18 10:05 Test 01/24/18 10:05 01/24/18 10:13 01/24/18 11:15 White Blood Count 6.18 K/uL (4.8-10.8) Red Blood Count 3.72 M/uL (4.2-5.4) Hemoglobin 11.2 g/dL (12.0-16.0) Hematocrit 34.3 % (37-47) Mean Corpuscular Volume 92.2 fL (80-100) Mean Corpuscular Hemoglobin 30.1 pg (25-34) Mean Corpuscular Hemoglobin Concent 32.7 g/dl (32-36) Platelet Count 325 K/uL (130-400) Mean Platelet Volume 8.9 fL (7.4-10.4) Neutrophils (%) (Auto) 75.0 % Lymphocytes (%) (Auto) 10.0 % Monocytes (%) (Auto) 13.4 % Eosinophils (%) (Auto) 0.8 % Basophils (%) (Auto) 0.3 % Neutrophils # (Auto) 4.63 K/uL (1.4-6.5) Lymphocytes # (Auto) 0.62 K/uL (1.2-3.4) Monocytes # (Auto) 0.83 K/uL (0.11-0.59) Eosinophils # (Auto) 0.05 K/uL (0-0.5) Basophils # (Auto) 0.02 K/uL (0-0.2) RDW Standard Deviation 51.9 fL (36.4-46.3) RDW Coefficient of Variation 15.3 % (11.5-14.5) Immature Granulocyte % (Auto) 0.5 % Immature Granulocyte # (Auto) 0.03 K/uL (0.00-0.02) Prothrombin Time 11.1 SECONDS (9.0-12.0) Prothromb Time International Ratio 1.1 (0.9-1.1) Anion Gap 6.0 mmol/L (3-11) Est Creatinine Clear Calc Drug Dose 146.7 ml/min Estimated GFR () 121.2 Estimated GFR (Non- 104.6 BUN/Creatinine Ratio 18.5 (10-20) Calcium Level 9.0 mg/dl (8.5-10.1) Magnesium Level 2.0 mg/dl (1.8-2.4) Total Bilirubin 0.6 mg/dl (0.2-1) Aspartate Amino Transf (AST/SGOT) 61 U/L (15-37) Alanine Aminotransferase (ALT/SGPT) 64 U/L (12-78) Alkaline Phosphatase 258 U/L (45-117) Troponin I < 0.015 ng/ml (0-0.045) Total Protein 8.0 gm/dl (6.4-8.2) Albumin 2.6 gm/dl (3.4-5.0) Globulin 5.4 gm/dl (2.5-4.0) Albumin/Globulin Ratio 0.5 (0.9-2) Lipase 92 U/L (73-393) Thyroid Stimulating Hormone (TSH) 2.470 uIu/ml (0.300-4.500) Free Thyroxine 1.48 ng/dl (0.80-1.60) Urine Color YELLOW Urine Appearance CLEAR (CLEAR) Urine pH 6.5 (4.5-7.5) Urine Specific Jackson > 1.045 (1.000-1.030) Urine Protein NEG (NEG) Urine Glucose (UA) NEG (NEG) Urine Ketones NEG (NEG) Urine Occult Blood NEG (NEG) Urine Nitrite NEG (NEG) Urine Bilirubin NEG (NEG) Urine Urobilinogen NEG (NEG) Urine Leukocyte Esterase NEG (NEG) Laboratory results reviewed by me. Medications Administered Medications (Trade) Dose Ordered Sig/Erlinda Route Start Time Stop Time Status Last Admin Dose Admin Ondansetron HCl (Zofran Inj) 4 mg NOW STAT IV 01/24/18 09:54 01/24/18 09:57 DC 01/24/18 10:26 4 MG Sodium Chloride 1,000 ml @ 999 mls/hr Q1H1M STAT IV 01/24/18 09:54 01/24/18 10:54 DC 01/24/18 10:26 999 MLS/HR Ketorolac Tromethamine (Toradol Inj) 30 mg NOW STAT IV 01/24/18 09:54 01/24/18 09:57 DC 01/24/18 10:26 30 MG ECG Per My Interpretation Indication: vomiting Rate (beats per minute): 78 Rhythm: normal sinus Findings: RBBB, no ectopy, other (No ST elevation or PVC) Comparison ECG Date: 02/05/17 Change: RBBB is new ED Course 0951: The patient was evaluated in room A12. A complete history and physical exam was performed. 0954: Toradol 30mg IV, Sodium Chloride 1000 ml @ 999 mls/hr IV, Zofran 4mg IV 1205: Upon reexamination the patient is doing well. I discussed results and treatment plan with the patient. She verbalizes agreement and understanding. The patient will be evaluated for further management. 1217: Discussed the patient's case with Dr. José Yu [facility] Hospitalist. The patient will be evaluated for further management. Medical Decision Differential diagnoses include: bowel obstruction, dehydration, electrolyte imbalance, viral or foodborne illness, worsening malignancy, intraabdominal mass , and volvulus There is no leukocytosis or concerning anemia. No significant electrolyte abnormality or kidney failure. There were a few scattered liver enzyme elevations. No evidence for issues with her thyroid. Urinalysis did not show evidence for infection. EKG showed a sinus rhythm, no acute ischemia. Cardiac enzyme testing 1 is not consistent with acute cardiac injury. Abdominal and pelvis CT shows evidence for worsening cancer with areas of metastasis. No bowel obstruction. Patient received IV saline, IV Toradol and IV Zofran, she is more comfortable. The patient presents with nausea and vomiting. She has had increasing abdominal pain. Workup here suggest worsening of her malignancy. She is not stable for discharge home. She requires further care and hydration. Further workup for the cancer is required. I spoke to the patient and case management. The on-call hospitalist was consulted. Medication Reconcilliation Current Medication List: was personally reviewed by me Blood Pressure Screening Patient's blood pressure: Elevated blood pressure Monitored by the hospitalist Consults Time Called: 1208 Consulting Physician: Dr. José Au Hospitalist Returned Call: [phone] Discussed the patient's case with Dr. José Au Hospitalist. The patient will be evaluated for further management. Impression Primary Impression: Vomiting Additional Impressions: Diffuse abdominal pain Malignancy Scribe Attestation The scribe's documentation has been prepared under my direction and personally reviewed by me in its entirety. I confirm that the note above accurately reflects all work, treatment, procedures, and medical decision making performed by me. Departure Information Dispostion Being Evaluated By Hospitalist Referrals Diogenes Garcia M.D. (PCP) Patient Instructions My [facility] Problem Qualifiers
[2018-01-24 10:36] LABS: ALBUMIN 2.6 gm/dl (3.4-5.0); CREATININE 0.52 mg/dl (0.60-1.20); POTASSIUM 3.5 mmol/L (3.5-5.1)
--- NOTE | 2018-01-24 10:38 | DIAGNOSTIC IMAGING REPORT ---
CHEST ONE VIEW PORTABLE CLINICAL HISTORY: Abdominal pain and vomiting. COMPARISON STUDY: Chest radiograph November 26, 2017. FINDINGS: A left subclavian pacemaker is in place. No lucency is identified under the hemidiaphragms to suggest pneumoperitoneum. Cardiac size is at the upper limits of normal. There is no pneumothorax or pleural effusion. No consolidation is noted. Pulmonary vascularity is normal. IMPRESSION: No acute cardiopulmonary findings. Electronically signed by: Joao Crespo M.D. 01/24/2018 10:37 AM Dictated Date/Time: 01/24/2018 10:36 AM
[2018-01-24] MEDS ORDERED: LISI-729 PO (11:20)
--- NOTE | 2018-01-24 11:22 | DIAGNOSTIC IMAGING REPORT ---
ADDENDUM Addendum: Comparison was made to a recent prior CT performed at [facility] December 31, 2017. There has been slight increase in extensive abdominal and pelvic lymphadenopathy since exam of December 31, 2017. A conglomerate para-aortic fernando mass measures 9.7 x 8.3 cm on current exam. It previously measured 8.8 x 8.3 cm. Index right inguinal node shown image 85 measures 2.7 cm on current exam. It previously measured 2.5 cm. Many of the lymph nodes are partially necrotic. Nodules within visualized portions of the lower lungs are suggestive of metastatic disease and have not significantly changed. Electronically signed by: Joao Crespo M.D. 01/25/2018 9:08 AM Dictated Date/Time: 01/25/2018 9:[address] OF THE ABDOMEN AND PELVIS WITH CONTRAST CLINICAL HISTORY: Abdominal pain and vomiting. Possible bowel obstruction. History of rectal cancer. COMPARISON STUDY: CT of the abdomen and pelvis March 20, 2015 and PET/CT June 04, 2015. TECHNIQUE: Following IV administration of 120 mL of Optiray-320, axial images of the abdomen and pelvis were obtained from the lung bases to the proximal femurs. Images were reviewed in the axial, sagittal, and coronal planes. IV contrast was administered without complication. A dose lowering technique was utilized adhering to the principles of ALARA. CT DOSE: 872.87 mGy.cm FINDINGS: Visualized portions of the lower chest demonstrate multiple pulmonary nodules which are new since CT of March 20, 2015, including a 7 mm left lower lobe pulmonary nodule. No pneumatosis, free air or portal venous gas is present. There is no biliary ductal dilatation. No hepatic lesions are present. The spleen and adrenal glands are unremarkable. There is pancreatic glandular atrophy without pancreatic ductal dilatation. There is no hydronephrosis. There has been interval development of a large conglomerate retroperitoneal fernando mass that measures approximately 14 x 10.7 x 8.8 cm. This encases the abdominal aorta, IVC and encases or occludes the left renal vein. Areas of suspected necrosis are noted. Several nodes are partially calcified. There are also enlarged retrocrural lymph nodes which measure up to 1.4 cm. Enlarged bilateral iliac nodes are noted as well as bilateral inguinal nodes. Index right external iliac node measures 3.4 cm and an index right inguinal node measures 3.7 cm. A left lower quadrant descending colostomy with parastomal hernia is noted. This contains multiple loops of small bowel without resultant bowel obstruction. There is also an umbilical hernia which contains small bowel. There is no evidence for a bowel obstruction. Minimal presacral infiltration is unchanged and likely postsurgical. There are bilateral hip arthroplasties. No suspicious osseous lesions are identified. IMPRESSION: 1. Interval development of a large conglomerate retroperitoneal fernando mass that encases the abdominal aorta, the IVC and multiple additional abdominal vessels, as described above. In addition, extensive bilateral iliac chain and inguinal lymphadenopathy. The findings are consistent with a neoplastic process and favor metastatic rectal carcinoma given the clinical history. However, lymphoma could appear similar. The right inguinal lymph nodes would be amenable to ultrasound-guided percutaneous biopsy. Findings discussed with Dr. Zafar at time of dictation. 2. Status post rectal resection with left lower quadrant descending colostomy. Associated parastomal hernia which contains multiple small bowel loops. No bowel obstruction. 3. Interval development of multiple lower lung nodules which suggest metastatic disease. Electronically signed by: Joao Crespo M.D. 01/24/2018 11:20 AM Dictated Date/Time: 01/24/2018 11:00 AM
[2018-01-24] MEDS ORDERED: ONDANSETRON INJ 2 MG/ML 2 ML VIAL IV PRN (12:30)
[2018-01-24] MEDS: ENOXAPARIN 40 MG/0.4 ML SYR SQ SCH (12:30)
[2018-01-24 12:44] VITALS: O2SAT 100; BMI 34.7
[2018-01-24] MEDS ORDERED: MoRPHine SULFATE 2 MG/ML CARP IV PRN (12:45)
[2018-01-24] MEDS ORDERED: LORAZEPAM 2 MG/ML 1 ML VIAL IV PRN (13:15)
[2018-01-24] MEDS ORDERED: ACETAMINOPHEN IV 650 MG in EMPTY BAG 0 ML IV PRN (13:15)
[2018-01-24 13:18] VITALS: O2SAT 96
[2018-01-24 13:20] VITALS: BP 183/133
[2018-01-24] MEDS ORDERED: CHOLTAB11 PO (13:24)
[2018-01-24] MEDS ORDERED: LISI-461 PO (13:24)
[2018-01-24] MEDS ORDERED: PROM25TA9 PO (13:24)
[2018-01-24] MEDS ORDERED: PYRI100T4 PO (13:24)
[2018-01-24] MEDS ORDERED: ONDA8TAB62 SL (13:24)
[2018-01-24] MEDS ORDERED: MAGN1CAP2 PO (13:24)
--- NOTE | 2018-01-24 13:30 | History and Physical ---
History & Physical Date & Time of Service: Jan 24, 2018 at 13:29 Chief Complaint: Rectal Adenocarcinoma Metastatic To Intrapelvic Primary Care Physician: Diogenes Garcia M.D. History of Present Illness Source: patient, clinic records, hospital records Patient is a 57-year-old female PMH of metastatic rectal cancer (s/p resection with descending colostomy) who presents with persistent abdominal pain x 4 days. Describes pain as diffuse, constant, 5/10 throbbing pain with radiation to bilateral hips and back. Also endorses nausea and one episode of vomiting. Low grade fever up to 99.8 degrees Fahrenheit. Has not had colostomy output since Tuesday, which is very unusual for her. Has had a bowel obstruction in the past and feels that her symptoms are similar. Required an NG tube last time. Follows with Dr. Maxwell for oncology and last received Lonsurf chemo a month ago (has received 3 cycles in total). Due to progression of disease, Lonsurf has been discontinued. Per chart review, patient is to be seen for second opinion for clinical trial. Denies chills, chest pain, shortness of breath, dysuria, diarrhea or LE swelling. CT abdomen/pelvis from today shows interval development of a large conglomerate retroperitoneal fernando mass that encases the abdominal aorta, the IVC and multiple additional abdominal vessels. Also with interval development of multiple lower lung nodules. No bowel obstruction. 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 Surgical Problems: (1) History of hysterectomy Status: Resolved (2) S/P appendectomy Status: Resolved (3) S/P cholecystectomy Status: Resolved Social History Problems: (1) Cholelithiasis Nos Status: Chronic Family History Cancer Diabetes mellitus Gallbladder disease Hypertension Lung disease Social History Smoking Status: Never Smoker Alcohol Use: none Marital Status: Housing status: lives alone Occupational Status: employed Immunizations History of Influenza Vaccine: No History of Tetanus Vaccine?: Yes History of Pneumococcal: No History of Hepatitis B Vaccine: No Allergies Coded Allergies: Morphine (Verified Adverse Reaction, Intermediate, GI SYMPTOMS, CAUSES Nausea and vomitting, 01/24/18) Home Medications Scheduled Cholecalciferol (D-5000), 1 TAB PO DAILY Enteral Nutrition Formula (Nutritional Supplement), 500-1,000 MG PO DAILY Levothyroxine Sodium (Levothyroxine Sodium), 1 TAB PO QAM Lisinopril (Lisinopril), 1 TAB PO DAILY Magnesium Oxide (Mg Supplement (Magnesium), 1 TAB PO DAILY Multivitamin (Multivitamin), 1 TAB PO QAM Pyridoxine (Vitamin B6), 100 MG PO DAILY Scheduled PRN Acetaminophen (Tylenol), 1,000 MG PO Q6 PRN for Pain Ondansetron Odt (Zofran Odt), 8 MG SL Q6H PRN for Nausea Promethazine Hcl (Phenergan), 25 MG PO Q4H PRN for Nausea Review of Systems Ten systems reviewed and negative except as noted in the HPI. Physical Exam Vital Signs Date Time Temp Pulse Resp B/P (MAP) Pulse Ox O2 Delivery O2 Flow Rate FiO2 01/24/18 13:18 76 19 171/89 96 Room Air 01/24/18 12:44 100 Room Air 01/24/18 11:28 81 18 179/95 100 Room Air 01/24/18 09:41 37.2 94 18 171/116 97 Room Air General Appearance: WD/WN, no apparent distress Head: normocephalic, atraumatic Eyes: normal inspection, PERRL, sclerae normal ENT: normal ENT inspection, hearing grossly normal, pharynx normal (moist mucous membranes ) Neck: supple, thyroid normal, trachea midline Respiratory/Chest: chest non-tender, lungs clear, normal breath sounds, no respiratory distress, no accessory muscle use Cardiovascular: regular rate, rhythm, no murmur, normal peripheral pulses Abdomen/GI: normal bowel sounds, soft, + tenderness (Mild mid-epigastric TTP ) , + pertinent finding (Palpable mass in midepigastrium, LLQ with colostomy-no output) Back: normal inspection Extremities/Musculoskelatal: normal inspection, no calf tenderness, no pedal edema Neurologic/Psych: no motor/sensory deficits, alert, normal mood/affect, oriented x 3 Lymphatic: + pertinent finding (BLE with discoloration 2/2 venous stasis ) Diagnostics Laboratory Results Results Past 24 Hours Test 01/24/18 10:05 4/24/18 11:15 Range/Units White Blood Count 6.18 4.8-10.8 K/uL Red Blood Count 3.72 4.2-5.4 M/uL Hemoglobin 11.2 12.0-16.0 g/dL Hematocrit 34.3 37-47 % Mean Corpuscular Volume 92.2 80-100 fL Mean Corpuscular Hemoglobin 30.1 25-34 pg Mean Corpuscular Hemoglobin Concent 32.7 32-36 g/dl Platelet Count 325 130-400 K/uL Mean Platelet Volume 8.9 7.4-10.4 fL Neutrophils (%) (Auto) 75.0 % Lymphocytes (%) (Auto) 10.0 % Monocytes (%) (Auto) 13.4 % Eosinophils (%) (Auto) 0.8 % Basophils (%) (Auto) 0.3 % Neutrophils # (Auto) 4.63 1.4-6.5 K/uL Lymphocytes # (Auto) 0.62 1.2-3.4 K/uL Monocytes # (Auto) 0.83 0.11-0.59 K/uL Eosinophils # (Auto) 0.05 0-0.5 K/uL Basophils # (Auto) 0.02 0-0.2 K/uL RDW Standard Deviation 51.9 36.4-46.3 fL RDW Coefficient of Variation 15.3 11.5-14.5 % Immature Granulocyte % (Auto) 0.5 % Immature Granulocyte # (Auto) 0.03 0.00-0.02 K/uL Sodium Level 135 136-145 mmol/L Potassium Level 3.5 3.5-5.1 mmol/L Chloride Level 101 98-107 mmol/L Carbon Dioxide Level 28 21-32 mmol/L Anion Gap 6.0 3-11 mmol/L Blood Urea Nitrogen 10 7-18 mg/dl Creatinine 0.52 0.60-1.20 mg/dl Est Creatinine Clear Calc Drug Dose 146.7 ml/min Estimated GFR () 121.2 Estimated GFR (Non- 104.6 BUN/Creatinine Ratio 18.5 10-20 Random Glucose 101 70-99 mg/dl Calcium Level 9.0 8.5-10.1 mg/dl Magnesium Level 2.0 1.8-2.4 mg/dl Total Bilirubin 0.6 0.2-1 mg/dl Aspartate Amino Transf (AST/SGOT) 61 15-37 U/L Alanine Aminotransferase (ALT/SGPT) 64 12-78 U/L Alkaline Phosphatase 258 45-117 U/L Troponin I < 0.015 0-0.045 ng/ml Total Protein 8.0 6.4-8.2 gm/dl Albumin 2.6 3.4-5.0 gm/dl Globulin 5.4 2.5-4.0 gm/dl Albumin/Globulin Ratio 0.5 0.9-2 Lipase 92 73-393 U/L Thyroid Stimulating Hormone (TSH) 2.470 0.300-4.500 uIu/ml Free Thyroxine 1.48 0.80-1.60 ng/dl Urine Color YELLOW Urine Appearance CLEAR CLEAR Urine pH 6.5 4.5-7.5 Urine Specific [place] > 1.045 1.000-1.030 Urine Protein NEG NEG Urine Glucose (UA) NEG NEG Urine Ketones NEG NEG Urine Occult Blood NEG NEG Urine Nitrite NEG NEG Urine Bilirubin NEG NEG Urine Urobilinogen NEG NEG Urine Leukocyte Esterase NEG NEG Diagnostic Radiology CXR: IMPRESSION: No acute cardiopulmonary findings. CT abd/pelvis: IMPRESSION: 1. Interval development of a large conglomerate retroperitoneal fernando mass that encases the abdominal aorta, the IVC and multiple additional abdominal vessels, as described above. In addition, extensive bilateral iliac chain and inguinal lymphadenopathy. The findings are consistent with a neoplastic process and favor metastatic rectal carcinoma given the clinical history. However, lymphoma could appear similar. The right inguinal lymph nodes would be amenable to ultrasound-guided percutaneous biopsy. Findings discussed with Dr. Zafar at time of dictation. 2. Status post rectal resection with left lower quadrant descending colostomy. Associated parastomal hernia which contains multiple small bowel loops. No bowel obstruction. 3. Interval development of multiple lower lung nodules which suggest metastatic disease. EKG Normal sinus rhythm Right bundle branch block Left anterior fascicular block * Bifascicular block Abnormal ECG When compared with ECG of 05-FEB-2017 01:31, Right bundle branch block is now Present Confirmed by FRED WILEY ([id number]) on 01/24/2018 12:35:15 PM Impression Assessment and Plan Patient is a 57-year-old female PMH of metastatic rectal cancer (s/p resection with descending colostomy) who presents with persistent abdominal pain x 4 days. Abdominal pain, constipation: -2/2 progression of metastatic rectal cancer -CT abc/pelvis with interval development of a large conglomerate retroperitoneal fernando mass that encases the abdominal aorta, the IVC and multiple additional abdominal vessels -No evidence of bowel obstruction -IVF resuscitation -Pain control, antiemetics -Keep NPO for now Metastatic rectal cancer: -First diagnosed in 2006, s/p resection, chemo, radiation -Progression of retroperitoneal mass, development of multiple lower lung nodules -Lonsurf chemo last given 1 month ago -Discontinuing due to progression of disease -Looking for clinical trial possibilities -Heme onc consulted -Palliative care consult HTN: -Slightly elevated 2/2 pain -Hydralazine 10mg Q8 PRN for SBP >160 -Lisinopril held while NPO DVT Ppx: SQ Lovenox Code status: FULL, per discussion with patient PCP: Jose Dispo: Adm med/surg. Plan to return home once medically stable. Patient seen in collaboration with Dr. Kumar. Please see addendum. ATTENDING ADDENDUM: 57-year-old female with metastatic colon cancer, status post colectomy status post chemo treatment Presented to ER with complaint of low output in colostomy for last 2-3 days Patient also reports of having poor p.o. intake, nausea vomiting Denies of any abdominal pain No fever or chills CT abdomen pelvis: Shows progression of metastatic colon cancer, interval development of a large conglomerate retroperitoneal fernando mass that encases the abdominal aorta, the IVC and multiple additional abdominal vessels -No evidence of bowel obstruction -Very poor prognosis Finding discussed with pathology oncology Dr. Maxwell Ordered for CEA level-elevated more than 1700 Had FNA guided biopsy by pathology of abdominal mass and right inguinal hernia this morning Finding discussed with Dr. Tolbert pathology-biopsy frozen section shows metastatic colon cancer Hematology oncology consulted Physical exam: Please refer to the physical exam done by Ciara Hernandes PA-C Assessment and plan: Widespread metastatic colon cancer with progression of disease Metastatic lymph node in Encompassing major intra-abdominal vessels Patient denies of any abdominal pain Heme oncology consulted-patient follows with Dr. Maxwell Palliative care consult requested as well She is willing to talk with palliative care Not ready for hospice care Want to pursue immunotherapy which could be last resort to decrease the progression of metastatic disease Patient understand she is in non curable stage of cancer Minimum/low output from colostomy: Possible secondary to ileus-with metastatic abdominal malignancy No evidence of obstruction noted Reports of able to passing gas Bowel rest with ice chips and sips Advanced to clear tomorrow if no nausea or vomiting reported Ordered for bowel regimen CODE STATUS: Full code Prognosis remains poor Patient is aware Disposition: Expected to be discharged home when medically stable Very poor prognosis Advanced Directives Existing Living Will: No Existing Power of Street Light Servicer Helper: No Resuscitation Status VTE Prophylaxis Will order VTE Prophylaxis: Yes
[2018-01-24] MEDS ORDERED: LORAZEPAM INJ 0.5 MG in SYRINGE 0.75 ML IV PRN (13:45)
[2018-01-24] MEDS: NSS + 20MEQ KCL 1000ML 1,000 ML IV SCH ×2 (13:55→23:30)
[2018-01-24] MEDS ORDERED: HydrALAZINE HCL 20 MG/ML VIAL ONE (14:12)
[2018-01-24] MEDS: HydrALAZINE HCL 20 MG/ML VIAL IV. PRN ×2 (14:18→22:32)
[2018-01-24] MEDS ORDERED: HydrALAZINE HCL 20 MG/ML VIAL IV. PRN (14:30)
[2018-01-24 14:47] LABS: INR 1.1 (0.9-1.1)
[2018-01-24 15:29] VITALS: BP 149/94; PULSE 83; TEMP 36.4; O2SAT 99
--- NOTE | 2018-01-24 19:47 | Medical Consult ---
Consultation Date of Consultation: Jan 24, 2018. Attending Physician: Ramandeep Kumar M.D. History of Present Illness Hematology/Oncology consult: Evaluation management of metastatic rectal cancer Date of consultation: 01/24/2018 Oncology diagnosis: -Rectal adenocarcinoma (2006), - Local recurrent disease (December 2008) -Recurrent disease in the pelvis, S/P the resection in 06/2012 -March 2015 --> recurrent disease in the abdomen and right inguinal region. Current treatment: None since early January 2018. We tried for clinical trial, [facility] decline to except her insurance. Earlier today she had FNA of the palpable right inguinal lymph node, result pending monthly january report suggests metastatic colon cancer, planning to send for Next Generation Sequencing for further evaluation. PREVIOUS TREATMENT: -Diagnosed with the rectal adenocarcinoma in 2006, she had a trans and all resection, positive margin, well-differentiated adenocarcinoma noted, she then received Xeloda and radiation treatment ~ -December,--> local recurrent disease, underwent APR, has colostomy since then. -she received 8 cycles of FOLFOX in [place] . ~ - Recurrent disease noted in 06/2012, she had extensive pelvic surgery at [facility]. ~ -She received about 12 cycles of FOLFIRI between August,-January, at [facility] in [place]. ~ - March,--> recurrent disease noted in the abdomen (biopsy-proven right inguinal lymph node involvement), ~ -Received Xeloda and then Xeloda andErbitux combination between August,- December, at [facility]. ~ She had a significant hand-foot syndrome with Xeloda. ~ -She was seen by Dr. Kohli in late 2015. ~ -Irinotecan single agent between 01/20/2017-02/10/2017 -Irinotecan plus Avastin combination between 03/24/2017-September,. ~ PATHOLOGY: ~ - Low rectal tumor biopsy--> infiltrating well-differentiated adenocarcinoma, infiltrates into the submucosa positive margin (08/23/2017, [facility]) ~ ~ She had extensive pelvic surgery earlier in June, at [facility] (FRANCOIS/ BSO, omentectomy, right periureteral area excision, posterior vaginal wall excision) ~ Final pathology--> - Right adnexa--> foci of adenocarcinoma, clear cell features, complete able with colonic adenocarcinoma - Right periureteral area excision--> foci of poorly differentiated adenocarcinoma. - Omentectomy--> no evidence of malignancy - Hysterectomy specimen showed invasive moderate differentiated adenocarcinoma, consistent with colonic primary. ~ -KRAS-->~negative -BRAF-->~negative. - MLH1, PMS 2, MSH 2 and MSH6--> present. ~ -PET-CT scan done on 06/04/2015 at [facility]--> moderate FDG every day prominent the right inguinal lymph node which is new when compared to previous examination done in January,. Moderate uptake noted in the right aspect of the perineum which is also new may be suspicious for local recurrent disease. ~ - CT guided FNA of the right inguinal lymph node--> consistent with metastatic adenocarcinoma of colorectal primary (07/03/2015) HPI: She came to [facility] today in the morning for FNA of the right inguinal lymph node, it was done successfully, she also complained of abdominal discomfort, increasing colostomy output for the last few days, some nausea present, 1 episode of vomiting, low-grade fever noted, now she is admitted Hospital for possible bowel obstruction, I saw her at bedside, she says that over the last few hours her abdominal pain has improved, no new nausea or vomiting, she says that she is feeling much better, started ambulating in the [place], receiving IV hydration, no fever, no night sweats, no new cardiac or pulmonary symptoms, no bleeding from any sites. REVIEW OF SYSTEMS: GENERAL: No change in weight, no weakness, no fatigue, no fever, sweats or chills. SKIN: No skin rash, no bruising. HEAD: No new headache, no dizziness. EYES: No recent change in the vision, no diplopia, EARS: No earache no tinnitus, NOSE: No epistaxis, No nasal discharge or stuffiness, MOUTH: No sores, no dysphagia, no hoarseness of voice, NECK: No lumps, No swelling in thyroid area. No stiffness. PULMONARY: No cough, No shortness of breath, no hemoptysis, no chest pain, No wheezing. CARDIOVASCULAR: No anginal chest pain, no PND, no orthopnea. No palpitation, no leg edema. No syncope. GASTROINTESTINAL: Abdominal discomfort, decreased colostomy output noted for the last 3 days. No blood in stool or black tarry stools. No abdominal distention. UROLOGIC: No burning urination. No hematuria. MUSCULOSKELETAL: No joint pain, No joint swelling, no muscle weakness. HEMATOLOGIC: No anemia, no bleeding disorder, No bruising. No history of blood transfusion. NEUROLOGIC: No seizures, no focal weakness, no speech difficulty, No memory disturbances. mild tingling and numbness of the extremities but has not further progressed. PSYCHIATRIC: No depression. Somewhat anxious about progression of the underlying colon cancer,. No psychosis. SLEEP: No sleep disorder. Past medical and surgical history: - hypertension. - she is on vitamin D supplementation - hypothyroidism. - she has left subclavian port (placed by Dr. Jacobs in January,) ~ -S/P cholecystectomy in her 20s. -T4 compression fracture could be related to underlying osteoporosis. -bilateral hip joint replacement in the past Social history: Nonsmoker, denies any ETOH abuse. Her about 6 years back. She lives alone Family history: Not significant, she has no children Medications: Please review her chart for detailed list of medications. Allergies:? Morphine On exam: - Alert and oriented x3, well built woman, not in any distress. - HEENT: no icterus, no pallor, Throat: Normal. - Neck: No palpable cervical lymphadenopathy. - Chest: clear to auscultation. - Abdomen: soft, nontender, no hepatomegaly, no splenomegaly. Colostomy present. - No focal neuro deficit. - Extremities: no finger clubbing, no leg edema. Right inguinal lymph node measuring 4 cm noted Lab: Blood workup done on 01/24/2018: -WBC 6100, H&H of 11.2/34.3, Platelet count of 325,000. -BUN/Creat: 10/0.5, calcium 9.0 -AST 61, ALT 64, alkaline phosphatase 258, Total bilirubin: 0.6 -CEA level--> 1340 (12/2017)--> 1736 (01/24/2018) Imaging: ~-CT scan of the chest, abdomen pelvis done on 10/06/2017-->~small lung nodules in the right upper lobe and lower lobe, the largest one measuring 5 mm, stable when compared to previous imaging studies done in March,. No other new lung nodules. ~Multiple enlarged retroperitoneal lymph nodes, aortocaval lymph node measuring 4.3 x 2.7 cm (it was 2.1 x 3.4 cm earlier), cystic right adnexal lesion measuring 3.6 x 2.7 cm noted. No liver lesions, no bony lesions noted. -CT scan of the abdomen and pelvis done on 01/24/2018--> interval enlargement of the retroperitoneal mass measuring 14 x 10.7 x 8.8 cm which is encasing the aorta, IVC and encasing/occluding the left renal vein. Suspected necrosis noted , several lymph nodes are partially calcified, enlarged the retrocrural lymph node measuring up to 1.4 cm, bilateral iliac lymph node, bilateral inguinal lymphadenopathy measuring up to 3-3.5 cm. No evidence of bowel obstruction noted. ASSESSMENT AND PLAN: 57-year-old female, who has longstanding history of adenocarcinoma of the rectum initially diagnosed in 2006, S/P trans and resection followed by Xeloda and radiation treatment. ~ Local recurrent disease noted in 2008, S/P APR with colostomy and then received 8 cycles of FOLFOX. ~ Extensive recurrent disease noted in the pelvis with involvement of the uterus, retroperitoneal lymph fernando region, S/P the resection at [facility], KRAS negative, BRAF negative, MSI stable, S/P 12 cycles of FOLFIRI chemotherapy which was completed in January,. ~ Noted to have recurrent disease in the abdomen mainly in the right inguinal lymph fernando region (biopsy-proven in March,), received Xeloda and Erbitux but then developed significant hand-foot syndrome toxicity. ~ He received Irinotecan single agent briefly and then iron taken plus Avastin for about 6 months which was discontinued in September, because of disease progression noted mainly in the right inguinal region and retroperitoneal region. ~ Started on Lonsurf (trifluridine and tipiracil) in 10/2017, after 3 months of lung cancer therapy, imaging study showed disease progression mainly noted in the abdomen, now she is not on specific treatment for the colon cancer diagnosis in early January 2018. We tried for clinical trial in her case, unfortunately her case was not accepted at [facility], we also do not have any specific standard chemotherapy treatment option at this time. CEA level has further increased to around 1700 also suggest disease progression. Earlier today she had FNA of the palpable right inguinal lymph node, preliminary report suggest metastatic colon cancer, would like to send additional evaluation with next generation sequencing. It may take some time to get report back, meanwhile I would like to start systemic chemotherapy in her case preferably this week as an outpatient. Earlier she had received oxaliplatin based chemotherapy in 2008. I would like to start modified FOLFOX 6 chemotherapy soon this week. She is at a high risk for thrombotic complications especially with the recent the imaging study showed increasing retroperitoneal soft tissue mass which is wrapping around the blood vessels, I would like to avoid Avastin at this time. Thanks for the consultation. Dr. Saman Maxwell Hem/Onc (This note was completed using the dictation program Fluency Direct. As such, there may be misspellings, word substitutions, or other variations that should not change the essence of the clinical content of this encounter note. If there is need for further clarification, please direct questions to the provider listed above.) Past Medical/Surgical History Medical Problems: (1) Diffuse abdominal pain Status: Acute (2) Influenza B Status: Acute (3) Malignancy Status: Acute (4) Neutropenic sepsis Status: Acute (5) Vomiting Status: Acute Social History Problems: (1) Cholelithiasis Nos Status: Chronic (2) Dehydration Status: Acute Family History Cancer Diabetes mellitus Gallbladder disease Hypertension Lung disease Social History Smoking Status: Never Smoker Alcohol Use: none Marital Status: Housing Status: lives alone Occupation Status: employed Allergies Coded Allergies: Morphine (Verified Adverse Reaction, Intermediate, GI SYMPTOMS, CAUSES Nausea and vomitting, 01/24/18) Current Inpatient Medications Current Inpatient Medications Medications (Trade) Dose Ordered Sig/Erlinda Route Start Time Stop Time Status Last Admin Dose Admin Ioversol (Optiray 320) 125 ml UD PRN IV 01/24/18 10:00 01/28/18 09:59 Enoxaparin Sodium (Lovenox Inj) 40 mg Q24H SQ 01/24/18 12:30 02/23/18 12:29 Ondansetron HCl (Zofran Inj) 4 mg Q6H PRN IV 01/24/18 12:30 02/23/18 12:29 Potassium Chloride/Sodium Chloride 1,000 ml @ 100 mls/hr Q10H IV 01/24/18 14:00 02/23/18 13:59 01/24/18 13:55 100 MLS/HR Morphine Sulfate (MoRPHine SULFATE INJ) 1 mg Q4 PRN IV 01/24/18 12:45 02/07/18 12:44 Ketorolac Tromethamine (Toradol Inj) 30 mg Q6H PRN IV 01/24/18 13:15 01/29/18 13:14 Acetaminophen 650 mg/Empty Bag 65 ml @ 260 mls/hr Q6H PRN IV 01/24/18 13:15 02/23/18 13:14 Lorazepam (Ativan Inj) 0.5 mg Q4 PRN IV 01/24/18 13:15 02/23/18 13:14 Lorazepam 0.5 mg/ Syringe 1 ml @ 1 mls/min Q4H PRN IV 01/24/18 13:45 02/23/18 13:44 Hydralazine HCl (HydrALAZINE INJ) 10 mg Q8 PRN IV. 01/24/18 13:45 02/23/18 13:44 01/24/18 14:18 10 MG Polyethylene (Miralax Powder Packet) 17 gm TID PO 01/24/18 20:00 02/23/18 19:59 Physical Exam Date Time Temp Pulse Resp B/P (MAP) Pulse Ox O2 Delivery O2 Flow Rate FiO2 01/24/18 16:00 Room Air 01/24/18 15:29 36.4 83 16 149/94 (112) 99 Room Air 01/24/18 13:20 183/133 (150) 01/24/18 13:18 76 19 171/89 96 Room Air 01/24/18 12:44 100 Room Air 01/24/18 11:28 81 18 179/95 100 Room Air 01/24/18 09:41 37.2 94 18 171/116 97 Room Air Laboratory Results Last 24 Hours Test 01/24/18 10:05 01/24/18 10:13 01/24/18 11:15 White Blood Count 6.18 K/uL Red Blood Count 3.72 M/uL Hemoglobin 11.2 g/dL Hematocrit 34.3 % Mean Corpuscular Volume 92.2 fL Mean Corpuscular Hemoglobin 30.1 pg Mean Corpuscular Hemoglobin Concent 32.7 g/dl Platelet Count 325 K/uL Mean Platelet Volume 8.9 fL Neutrophils (%) (Auto) 75.0 % Lymphocytes (%) (Auto) 10.0 % Monocytes (%) (Auto) 13.4 % Eosinophils (%) (Auto) 0.8 % Basophils (%) (Auto) 0.3 % Neutrophils # (Auto) 4.63 K/uL Lymphocytes # (Auto) 0.62 K/uL Monocytes # (Auto) 0.83 K/uL Eosinophils # (Auto) 0.05 K/uL Basophils # (Auto) 0.02 K/uL RDW Standard Deviation 51.9 fL RDW Coefficient of Variation 15.3 % Immature Granulocyte % (Auto) 0.5 % Immature Granulocyte # (Auto) 0.03 K/uL Prothrombin Time 11.1 SECONDS Prothromb Time International Ratio 1.1 Sodium Level 135 mmol/L Potassium Level 3.5 mmol/L Chloride Level 101 mmol/L Carbon Dioxide Level 28 mmol/L Anion Gap 6.0 mmol/L Blood Urea Nitrogen 10 mg/dl Creatinine 0.52 mg/dl Est Creatinine Clear Calc Drug Dose 146.7 ml/min Estimated GFR () 121.2 Estimated GFR (Non- 104.6 BUN/Creatinine Ratio 18.5 Random Glucose 101 mg/dl Calcium Level 9.0 mg/dl Magnesium Level 2.0 mg/dl Total Bilirubin 0.6 mg/dl Aspartate Amino Transf (AST/SGOT) 61 U/L Alanine Aminotransferase (ALT/SGPT) 64 U/L Alkaline Phosphatase 258 U/L Troponin I < 0.015 ng/ml Total Protein 8.0 gm/dl Albumin 2.6 gm/dl Globulin 5.4 gm/dl Albumin/Globulin Ratio 0.5 Lipase 92 U/L Thyroid Stimulating Hormone (TSH) 2.470 uIu/ml Free Thyroxine 1.48 ng/dl Carcinoembryonic Antigen 1736.6 ng/ml Urine Color YELLOW Urine Appearance CLEAR Urine pH 6.5 Urine Specific [place] > 1.045 Urine Protein NEG Urine Glucose (UA) NEG Urine Ketones NEG Urine Occult Blood NEG Urine Nitrite NEG Urine Bilirubin NEG Urine Urobilinogen NEG Urine Leukocyte Esterase NEG
[2018-01-24 20:19] VITALS: BP 159/96; PULSE 86; TEMP 36.6; O2SAT 97
[2018-01-24] MEDS: POLYETHYLENE (MIRALAX) 17 GM PACK PO SCH (20:25)
[2018-01-24 22:17] VITALS: BP 175/104
[2018-01-24] MEDS: KETOROLAC TROMETHAMINE 30 MG/ML VIAL IV PRN (22:30)
[2018-01-25] VITALS (7 sets, daily range): BP systolic 147–177; BP diastolic 79–121; PULSE 74–88; TEMP 36.3–36.7; O2SAT 97–100; Ht 172.7 cm; Wt 104.4 kg
[2018-01-25 06:30] LABS: HEMOGLOBIN 11.7 g/dL (12.0-16.0); MEAN CELL VOLUME 94.2 fL (80-100); MEAN CORPUSCULAR HEMOGLOBIN 30.6 pg (25-34); MEAN CORPUSCULAR HGB CONC 32.5 g/dl (32-36); MEAN PLATELET VOLUME 9.3 fL (7.4-10.4); PLATELET COUNT 356 K/uL (130-400); RED CELL DISTRIBUTION WIDTH CV 15.5 % (11.5-14.5); WHITE BLOOD COUNT 5.45 K/uL (4.8-10.8)
[2018-01-25 07:06] LABS: CREATININE 0.53 mg/dl (0.60-1.20); POTASSIUM 3.7 mmol/L (3.5-5.1)
[2018-01-25] MEDS: POLYETHYLENE (MIRALAX) 17 GM PACK PO SCH ×3 (08:00→20:11)
[2018-01-25] MEDS: NSS + 20MEQ KCL 1000ML 1,000 ML IV SCH (08:28)
[2018-01-25] MEDS: ENOXAPARIN 40 MG/0.4 ML SYR SQ SCH (12:06)
[2018-01-25] MEDS: HydrALAZINE HCL 20 MG/ML VIAL IV. PRN ×2 (12:09→23:07)
--- NOTE | 2018-01-25 14:12 | Progress Note ---
Internal Med Progress Note Date of Service: Jan 25, 2018. Provider Documentation: SUBJECTIVE: Seen and examined at bedside Doing well today Denies abdominal pain, nausea, chest pain, SOB +flatus, no BM yet Prefers to be stopped on IV fluids and will increase oral fluid intake Discussed with Oncology Planned for possible excisional biopsy of R inguinal lymph node OBJECTIVE: Vital Signs-as noted below Physical Exam: General Appearance:Moderately built and nourished, no apparent distress Head: normocephalic, Atraumatic Eyes: normal inspection, EOMI, PERRL Neck: supple, Trachea midline Respiratory/Chest: Normal breath sounds, CTA Cardiovascular: S1, S2, No murmur Abdomen/GI:Soft, Non tender, Bowel sounds present, + Colostomy Extremities/Musculoskelatal:normal inspection, 1+ B/L edema Neurologic/Psych:AAOX3, grossly no focal neurological deficits Skin: normal color, warm Lab data as noted below. ASSESSMENT & PLAN: Patient is a 57 yr female with PMH of metastatic rectal cancer (s/p resection with descending colostomy) who presents with persistent abdominal pain x 4 days. Abdominal pain, constipation: Likely 2/2 progression of metastatic rectal cancer. Possible Ileus CT abc/pelvis with interval development of a large conglomerate retroperitoneal fernando mass that encases the abdominal aorta, the IVC and multiple additional abdominal vessels suggestive of metastatic rectal carcinoma . Evidence of lung metastasis. No bowel obstruction. IVF fluids Advance diet as tolerated Pain control, antiemetics Appreciate Oncology Input Metastatic Adenocarcinoma of Rectum: First diagnosed in 2006, s/p resection, chemo (Multiple regimens), radiation Recurrence in 2008, 2012, 2014 Progression of retroperitoneal mass, development of multiple lower lung nodules Lonsurf chemo last given 1 month ago Looking for clinical trial possibilities: Not accepted at [facility] Appreciate Heme onc Input Palliative care consulted as well Surgery consulted to Excisional lymph node biopsy CEA level increased to 1700s suggests disease progression. Planned to be started on modified FOLFOX 6 chemotherapy later this week. Very poor prognosis HTN: Elevated Resume lisinopril Hydralazine PRN Hypothyroidism: Continue Levothyroxine DVT Px: SQ Lovenox Code status: Full Code Disposition: Plan to return home once medically stable. Vital Signs: Date Time Temp Pulse Resp B/P (MAP) Pulse Ox O2 Delivery O2 Flow Rate FiO2 01/25/18 11:30 36.5 82 16 176/80 (112) 100 4/25/18 10:45 Room Air 01/25/18 07:42 36.7 74 16 155/97 (116) 100 01/25/18 04:29 36.6 83 19 147/79 (101) 98 Room Air 01/25/18 00:12 36.7 84 20 160/94 (116) 97 Room Air 01/24/18 23:30 Room Air 01/24/18 22:17 175/104 (127) 01/24/18 20:19 36.6 86 18 159/96 (117) 97 01/24/18 16:00 Room Air 01/24/18 15:29 36.4 83 16 149/94 (112) 99 Room Air Lab Results: Results Past 24 Hours Test 01/25/18 05:41 Range/Units White Blood Count 5.45 4.8-10.8 K/uL Red Blood Count 3.82 4.2-5.4 M/uL Hemoglobin 11.7 12.0-16.0 g/dL Hematocrit 36.0 37-47 % Mean Corpuscular Volume 94.2 80-100 fL Mean Corpuscular Hemoglobin 30.6 25-34 pg Mean Corpuscular Hemoglobin Concent 32.5 32-36 g/dl RDW Standard Deviation 53.0 36.4-46.3 fL RDW Coefficient of Variation 15.5 11.5-14.5 % Platelet Count 356 130-400 K/uL Mean Platelet Volume 9.3 7.4-10.4 fL Sodium Level 136 136-145 mmol/L Potassium Level 3.7 3.5-5.1 mmol/L Chloride Level 104 98-107 mmol/L Carbon Dioxide Level 27 21-32 mmol/L Anion Gap 5.0 3-11 mmol/L Blood Urea Nitrogen 8 7-18 mg/dl Creatinine 0.53 0.60-1.20 mg/dl Est Creatinine Clear Calc Drug Dose 143.9 ml/min Estimated GFR () 120.5 Estimated GFR (Non- 103.9 BUN/Creatinine Ratio 15.5 10-20 Random Glucose 72 70-99 mg/dl Calcium Level 9.0 8.5-10.1 mg/dl Magnesium Level 2.2 1.8-2.4 mg/dl
[2018-01-25] MEDS ORDERED: LISINOPRIL 10 MG TAB PO ONE (14:30)
[2018-01-25] MEDS: KETOROLAC TROMETHAMINE 30 MG/ML VIAL IV PRN (15:49)
--- NOTE | 2018-01-25 21:21 | Hematology/Oncology Prog Note ---
Hematology/Onc Progress Note Date of Service Jan 25, 2018. Subjective I saw her briefly in the hospital in the evening, she was walking in the order, gradual improvement of the abdominal pain noted, no nausea or vomiting, hemodynamically she has remained stable, no bleeding complications. Earlier in the day received a message from pathologist that they do not have enough cell block for further testing in the form of next generation sequencing. FNA from right inguinal soft tissue mass (01/24/2018)--> metastatic colorectal adenocarcinoma. We asked the radiologist for core needle biopsy of the palpable right inguinal/ upper midthigh soft tissue mass but they have suggested for biopsy by the surgery. Will ask general surgeon for incisional biopsy of the palpable right upper medial thigh soft tissue mass for further testing mainly next generation sequencing. Because of rapid progression of the disease, I am planning to start systemic chemotherapy with modified FOLFOX 6 without 5-Fluorouracil bolus as an outpatient this week on Tuesday. Once the biopsy is performed, she could go home. Vital Signs Vital Signs Past 12 Hours Date Time Temp Pulse Resp B/P (MAP) Pulse Ox O2 Delivery O2 Flow Rate FiO2 01/25/18 19:32 36.5 76 18 159/98 (118) 99 Room Air 01/25/18 16:00 Room Air 01/25/18 14:33 36.3 88 20 163/93 (116) 100 Room Air 01/25/18 11:30 36.5 82 16 176/80 (112) 100 01/25/18 10:45 Room Air
[2018-01-26] VITALS (7 sets, daily range): BP systolic 136–182; BP diastolic 77–110; PULSE 79–94; TEMP 36.3–36.7; O2SAT 94–100
--- NOTE | 2018-01-26 00:18 | SURGICAL CONSULTATION ---
DATE OF CONSULTATION: 01/25/2018 HISTORY OF PRESENT ILLNESS: I have been asked by Dr. Love and Dr. Maxwell to see this patient for incisional biopsy of a mass in the upper right thigh. The patient has a known diagnosis of metastatic rectal adenocarcinoma. The first diagnosis was made in 2006. She underwent treatment including surgery but then had local recurrent disease in 2008. She then had recurrent disease in the pelvis and was status post resection in 2011 as well. She in 2014 was noted to have recurrent disease in the abdomen and right inguinal region. She was admitted to the hospital with a complaint of 4 to 5 days of abdominal pain. This was crampy and sharp. She also had nausea and vomiting and it subsequently resolved. She is feeling well now. She had an FNA of the large mass that demonstrated metastatic colorectal carcinoma. We have been asked to obtain an incisional biopsy for more tissue for next generation sequencing. PAST MEDICAL HISTORY: Metastatic recurrent colorectal carcinoma. She also has hepatomegaly, hypertension, hypothyroidism, cholelithiasis. PAST SURGICAL HISTORY: Hysterectomy, appendectomy, cholecystectomy, and she has undergone multiple procedures for the rectal cancer. She presently has a colostomy. MEDICATIONS: Medications at home included cholecalciferol, levothyroxine, lisinopril, multivitamin, and B6. PHYSICAL EXAMINATION: GENERAL: Exam reveals an overweight female who appears in no acute distress. VITAL SIGNS: Blood pressure 159/98, heart rate 76, respirations 18, temperature 36.5, pulse oximetry 99% on room air. HEENT: Exam reveals sclerae to be anicteric. Mucous membranes are moist. RESPIRATORY: Lungs are clear. CARDIOVASCULAR: Heart is regular. ABDOMEN: He has normoactive bowel sounds. Soft and nondistended. There is a colostomy in place. There is absolutely no tenderness. EXTREMITIES: She has trace pretibial edema bilaterally. LABORATORY DATA: WBC 5.45, H&H are 11.7 and 36.0, platelet count of 356,000. Sodium 136, potassium 3.7, chloride 104, CO2 of 27, BUN 8, creatinine 0.5. INR was 1.1. IMAGING: CT scan of the abdomen and pelvis noted a large conglomerate retroperitoneal fernando mass encasing the abdominal aorta and the IVC, multiple additional abdominal vessels with bilateral iliac chain inguinal lymphadenopathy. Right inguinal lymph nodes were enlarged as well. There is also interval development of multiple lung nodules suggesting metastatic disease. Those were unchanged from a previous study. ASSESSMENT AND PLAN: I am going to plan for an incisional biopsy of the mass in the right inguinal region. We are not going to plan for complete excision. She understands that. She understands the possible complications that I explained to her and answered her questions.
[2018-01-26] MEDS ORDERED: LEVOTHYROXINE 175 MCG TAB PO SCH (06:30)
[2018-01-26 06:49] LABS: CREATININE 0.44 mg/dl (0.60-1.20); POTASSIUM 3.8 mmol/L (3.5-5.1)
[2018-01-26] MEDS ORDERED: MAGNESIUM OXIDE 400 MG TAB PO SCH (08:00)
[2018-01-26] MEDS ORDERED: LISINOPRIL 10 MG TAB PO SCH (08:00)
[2018-01-26] MEDS: POLYETHYLENE (MIRALAX) 17 GM PACK PO SCH ×2 (08:00→13:51)
[2018-01-26] MEDS ORDERED: MIDAZOLAM HCL 1 MG/ML 2ML VIAL ONE (11:24)
[2018-01-26] MEDS ORDERED: FENTANYL CITRATE INJ 50 MCG/1 ML 2 ML VIAL ONE (11:24)
[2018-01-26] MEDS ORDERED: ONDANSETRON INJ 2 MG/ML 2 ML VIAL IV PRN (11:30)
[2018-01-26] MEDS ORDERED: ATROPINE SULFATE 0.1 MG/ML 5ML SYR IV PRN (11:30)
[2018-01-26] MEDS ORDERED: EpHEDrine SULFATE INJ 50 MG/ML AMP IV PRN (11:30)
[2018-01-26] MEDS ORDERED: FENTANYL CITRATE INJ 50 MCG/1 ML 2 ML VIAL IV PRN (11:30)
[2018-01-26] MEDS ORDERED: BUPIVACAINE 0.5 % 5 MG/1 ML MPF 30ML VIAL ONE (11:51)
[2018-01-26] MEDS ORDERED: CEFAZOLIN SOD 2000MG/15 ML IV PUSH IV ONE (12:03)
[2018-01-26] MEDS ORDERED: LIDOCAINE HCL 2% 2 ML VIAL (20MG/ML) ONE (12:30)
[2018-01-26] MEDS ORDERED: PROPOFOL IV EMULSION 10 MG/ML 20 ML VIAL IV ONE (12:30)
[2018-01-26] MEDS ORDERED: ONDANSETRON INJ 2 MG/ML 2 ML VIAL ONE (12:30)
--- NOTE | 2018-01-26 12:33 | [facility] Post Operative Brief Note ---
Immediate Operative Summary Operative Date Jan 26, 2018. 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
[2018-01-26] MEDS ORDERED: FLOSEAL HEMOSTATIC MATRIX 5ML TOP ONE (12:40)
[2018-01-26] MEDS ORDERED: OXYCODONE/ACETAMINOPHEN 5-325 TAB PO PRN (12:45)
[2018-01-26] MEDS ORDERED: MoRPHine SULFATE 2 MG/ML CARP IV PRN (12:45)
[2018-01-26] MEDS ORDERED: NURSING VERBAL MED ORDER ONE ×3 (12:55→14:00)
[2018-01-26] MEDS: HydrALAZINE HCL 20 MG/ML VIAL IV. PRN ×2 (13:00→13:20)
[2018-01-26] MEDS: KETOROLAC TROMETHAMINE 30 MG/ML VIAL IV PRN (13:58)
--- NOTE | 2018-01-26 14:01 | OPERATIVE REPORT ---
DATE OF OPERATION: 01/26/2018 PREOPERATIVE DIAGNOSIS: Metastatic rectal carcinoma to the right side. POSTOPERATIVE DIAGNOSIS: Metastatic rectal carcinoma to the right side. PROCEDURE: Excisional biopsy. SURGEON: Fredy Jacobs MD NUT PROCESSING SUPERVISOR: Sia Almonte PA-C FINDINGS: The patient had a mass measuring at least 4 inches across. It was very hard. She had previously had a fine needle aspiration of this and it demonstrated metastatic carcinoma, but more tissue was needed for further pathologic studies. TECHNIQUE: The patient was given intravenous sedation and the area was prepped and draped in the usual sterile fashion. The skin and subcutaneous tissue were anesthetized with 0.5% Marcaine plain. A skin incision was made and dissection was carried through the fatty layers down through the subcutaneous layers to the tissue overlying the mass. Once I exposed the anterior surface of the mass, a portion of it measuring approximately 1 square cm x 4-5 mm was excised. There was oozing from the base, then that was controlled with cautery. There was no further oozing. I placed FloSeal into the area and then it was closed with a running 2-0 Vicryl in the deep subcutaneous tissue, running 3-0 Vicryl in the superficial subcutaneous tissue, and a running 4-0 Monocryl for the skin. Estimated blood loss was about 4 mL. Sponge, needle, and instrument counts were correct prior to closure. The patient tolerated the surgical procedure without complication and was transferred to recovery. I attest to the content of the Intraoperative Record and any orders documented therein. Any exception s are noted below.
--- NOTE | 2018-01-26 14:05 | Anesthesiology Progress Note ---
Anesthesia Post Op Note Date & Time Jan 26, 2018 at 14:05 Vital Signs Pain Intensity: 5.0 Vital Signs Past 12 Hours Date Time Temp Pulse Resp B/P (MAP) Pulse Ox O2 Delivery O2 Flow Rate FiO2 01/26/18 14:02 Room Air 01/26/18 13:47 36.5 94 20 178/99 (125) 98 Room Air 01/26/18 13:35 87 18 168/90 99 Room Air 01/26/18 13:20 85 18 167/93 100 Room Air 01/26/18 13:10 37.1 79 18 166/87 100 Room Air 01/26/18 13:00 74 18 152/98 100 Room Air 01/26/18 12:50 81 16 169/105 100 Room Air 01/26/18 12:44 36.5 82 14 169/105 100 Room Air 01/26/18 11:46 Room Air 01/26/18 11:40 36.3 94 20 182/110 (134) 94 Room Air 01/26/18 11:35 36.7 82 20 151/90 (110) 99 01/26/18 07:59 36.6 79 16 157/77 (103) 100 01/26/18 04:53 36.6 88 20 157/89 (111) 97 Room Air Notes Mental Status: alert / awake / arousable, participated in evaluation Pt Amnestic to Procedure: Yes Nausea / Vomiting: adequately controlled Pain: adequately controlled Airway Patency, RR, SpO2: stable & adequate BP & HR: stable & adequate Hydration State: stable & adequate Anesthetic Complications: no major complications apparent
[2018-01-26] MEDS ORDERED: AMLODIPINE BESYLATE 5 MG TAB PO ONE (14:15)
--- NOTE | 2018-01-26 14:23 | Progress Note ---
Internal Med Progress Note Date of Service: Jan 26, 2018. Provider Documentation: SUBJECTIVE: Seen and examined at bedside Got excisional biopsy today Denies chest pain, SOB, nausea +flatus and mucus, no good BM yet Prefers to be be discharged today as scheduled for chemotherapy tomorrow Discussed with surgery OBJECTIVE: Vital Signs-as noted below Physical Exam: General Appearance:Moderately built and nourished, no apparent distress Head: normocephalic, Atraumatic Eyes: normal inspection, EOMI, PERRL Neck: supple, Trachea midline Respiratory/Chest: Normal breath sounds, CTA Cardiovascular: S1, S2, No murmur Abdomen/GI:Soft, Non tender, Bowel sounds present, + Colostomy Extremities/Musculoskelatal:normal inspection, 1+ B/L edema Neurologic/Psych:AAOX3, grossly no focal neurological deficits Skin: normal color, warm Lab data as noted below. ASSESSMENT & PLAN: Patient is a 57 yr female with PMH of metastatic rectal cancer (s/p resection with descending colostomy) who presents with persistent abdominal pain x 4 days. Abdominal pain, constipation: Likely 2/2 progression of metastatic rectal cancer. Possible Ileus CT abc/pelvis with interval development of a large conglomerate retroperitoneal fernando mass that encases the abdominal aorta, the IVC and multiple additional abdominal vessels suggestive of metastatic rectal carcinoma . Evidence of lung metastasis. No bowel obstruction. s/p IVF fluids Advance diet as tolerated Pain control, antiemetics Appreciate Oncology Input Encourage increased oral fluid intake Metastatic Adenocarcinoma of Rectum: First diagnosed in 2006, s/p resection, chemo (Multiple regimens), radiation Recurrence in 2008, 2012, 2014 Progression of retroperitoneal mass, development of multiple lower lung nodules Lonsurf chemo last given 1 month ago Looking for clinical trial possibilities: Not accepted at [facility] Appreciate Heme onc Input Palliative care consulted CEA level increased to 1700s suggests disease progression. Planned to be started on modified FOLFOX 6 chemotherapy later this week. Very poor prognosis S/P Excisional biopsy of metastatic lesion right thigh appreciate Surgery help HTN: Elevated Continue lisinopril Add Amlodipine for better BP control Hydralazine PRN Hypothyroidism: Continue Levothyroxine DVT Px: SQ Lovenox Code status: Full Code Disposition: Plan to return discharge home today Follow up with your PCP in 1 week as advised Follow up with your Oncologist for chemotherapy as scheduled Follow up with your Surgeon in 10 days as advised Seek immediate medical attention if your symptoms reoccur or worsen Vital Signs: Date Time Temp Pulse Resp B/P (MAP) Pulse Ox O2 Delivery O2 Flow Rate FiO2 01/26/18 14:02 Room Air 01/26/18 13:47 36.5 94 20 178/99 (125) 98 Room Air 01/26/18 13:35 87 18 168/90 99 Room Air 01/26/18 13:20 85 18 167/93 100 Room Air 01/26/18 13:10 37.1 79 18 166/87 100 Room Air 01/26/18 13:00 74 18 152/98 100 Room Air 01/26/18 12:50 81 16 169/105 100 Room Air 01/26/18 12:44 36.5 82 14 169/105 100 Room Air 01/26/18 11:46 Room Air 01/26/18 11:40 36.3 94 20 182/110 (134) 94 Room Air 01/26/18 11:35 36.7 82 20 151/90 (110) 99 01/26/18 07:59 36.6 79 16 157/77 (103) 100 01/26/18 04:53 36.6 88 20 157/89 (111) 97 Room Air 01/26/18 00:40 136/78 (97) 01/26/18 00:00 Room Air 01/25/18 23:03 36.7 80 18 177/121 (139) 100 Room Air 01/25/18 19:32 36.5 76 18 159/98 (118) 99 Room Air 01/25/18 16:00 Room Air 01/25/18 14:33 36.3 88 20 163/93 (116) 100 Room Air Lab Results: Results Past 24 Hours Test 01/26/18 05:59 Range/Units Sodium Level 137 136-145 mmol/L Potassium Level 3.8 3.5-5.1 mmol/L Chloride Level 105 98-107 mmol/L Carbon Dioxide Level 26 21-32 mmol/L Anion Gap 6.0 3-11 mmol/L Blood Urea Nitrogen 9 7-18 mg/dl Creatinine 0.44 0.60-1.20 mg/dl Est Creatinine Clear Calc Drug Dose 173.4 ml/min Estimated GFR () 128.1 Estimated GFR (Non- 110.5 BUN/Creatinine Ratio 19.6 10-20 Random Glucose 88 70-99 mg/dl Calcium Level 9.0 8.5-10.1 mg/dl Magnesium Level 2.1 1.8-2.4 mg/dl
[2018-01-26] MEDS ORDERED: NRV5 PO (14:24)
--- NOTE | 2018-01-26 14:26 | Discharge Summary ---
Discharge Summary Date of Service Jan 26, 2018. Discharge Summary Admission Date: Jan 24, 2018 at 12:29 Discharge Date: Jan 26, 2018 Discharge Disposition: Home Principal Diagnosis: Metastatic rectal adenocarcinoma, Hypertension Procedures: CT ABD: 1. Interval development of a large conglomerate retroperitoneal fernando mass that encases the abdominal aorta, the IVC and multiple additional abdominal vessels, as described above. In addition, extensive bilateral iliac chain and inguinal lymphadenopathy. The findings are consistent with a neoplastic process and favor metastatic rectal carcinoma given the clinical history. However, lymphoma could appear similar. The right inguinal lymph nodes would be amenable to ultrasound-guided percutaneous biopsy. Findings discussed with Dr. Zafar at time of dictation. 2. Status post rectal resection with left lower quadrant descending colostomy. Associated parastomal hernia which contains multiple small bowel loops. No bowel obstruction. 3. Interval development of multiple lower lung nodules which suggest metastatic disease. CXR: No acute cardiopulmonary findings. Consultations: Surgery, Palliative care, Oncology Pending Studies/Follow-Up: Follow up with your PCP in 1 week as advised Follow up with your Oncologist for chemotherapy as scheduled Follow up with your Surgeon in 10 days as advised Seek immediate medical attention if your symptoms reoccur or worsen Medication Reconciliation New Medications: Amlodipine Besylate (Amlodipine Besylate) 5 Mg Tab 5 MG PO QAM for 30 Days, #30 TAB 1 Refill Continued Medications: Acetaminophen (Tylenol) 500 Mg Tab 1000 MG PO Q6 PRN for Pain, TAB Cholecalciferol (D-5000) 5,000 Unit Tab 1 TAB PO DAILY for 30 Days, #30 TAB Enteral Nutrition Formula (Nutritional Supplement) Ea 500-1000 MG PO DAILY Levothyroxine Sodium (Levothyroxine Sodium) 175 Mcg Tab 1 TAB PO QAM, TAB 3 Refills Lisinopril (Lisinopril) 10 Mg Tab 1 TAB PO DAILY Magnesium Oxide (Mg Supplement (Magnesium) 400 Mg Cap 1 TAB PO DAILY Multivitamin (Multivitamin) Tab 1 TAB PO QAM, TAB Ondansetron Odt (Zofran Odt) 8 Mg Soltab 8 MG SL Q6H PRN for Nausea, TAB Promethazine Hcl (Phenergan) 25 Mg Tab 25 MG PO Q4H PRN for Nausea, TAB Pyridoxine (Vitamin B6) 100 Mg Tab 100 MG PO DAILY, TAB Admission Information HPI (per Admitting provider): Patient is a 57-year-old female PMH of metastatic rectal cancer (s/p resection with descending colostomy) who presents with persistent abdominal pain x 4 days. Describes pain as diffuse, constant, 5/10 throbbing pain with radiation to bilateral hips and back. Also endorses nausea and one episode of vomiting. Low grade fever up to 99.8 degrees Fahrenheit. Has not had colostomy output since Tuesday, which is very unusual for her. Has had a bowel obstruction in the past and feels that her symptoms are similar. Required an NG tube last time. Follows with Dr. Maxwell for oncology and last received Lonsurf chemo a month ago (has received 3 cycles in total). Due to progression of disease, Lonsurf has been discontinued. Per chart review, patient is to be seen for second opinion for clinical trial. Denies chills, chest pain, shortness of breath, dysuria, diarrhea or LE swelling. CT abdomen/pelvis from today shows interval development of a large conglomerate retroperitoneal fernando mass that encases the abdominal aorta, the IVC and multiple additional abdominal vessels. Also with interval development of multiple lower lung nodules. No bowel obstruction. Physical Exam (per Admitting): General Appearance: WD/WN, no apparent distress Head: normocephalic, atraumatic Eyes: normal inspection, PERRL, sclerae normal ENT: normal ENT inspection, hearing grossly normal, pharynx normal (moist mucous membranes ) Neck: supple, thyroid normal, trachea midline Respiratory/Chest: chest non-tender, lungs clear, normal breath sounds, no respiratory distress, no accessory muscle use Cardiovascular: regular rate, rhythm, no murmur, normal peripheral pulses Abdomen/GI: normal bowel sounds, soft, + tenderness (Mild mid-epigastric TTP ), + pertinent finding (Palpable mass in midepigastrium, LLQ with colostomy- no output) Back: normal inspection Extremities/Musculoskelatal: normal inspection, no calf tenderness, no pedal edema Neurologic/Psych: no motor/sensory deficits, alert, normal mood/affect, oriented x 3 Lymphatic: + pertinent finding (BLE with discoloration 2/2 venous stasis ) Hospital Course Patient is a 57 yr female with PMH of metastatic rectal cancer (s/p resection with descending colostomy) who presents with persistent abdominal pain x 4 days. Abdominal pain, constipation: Likely 2/2 progression of metastatic rectal cancer. Possible Ileus CT abc/pelvis with interval development of a large conglomerate retroperitoneal fernando mass that encases the abdominal aorta, the IVC and multiple additional abdominal vessels suggestive of metastatic rectal carcinoma . Evidence of lung metastasis. No bowel obstruction. s/p IVF fluids Advance diet as tolerated Pain control, antiemetics Appreciate Oncology Input Encourage increased oral fluid intake Metastatic Adenocarcinoma of Rectum: First diagnosed in 2006, s/p resection, chemo (Multiple regimens), radiation Recurrence in 2008, 2012, 2014 Progression of retroperitoneal mass, development of multiple lower lung nodules Lonsurf chemo last given 1 month ago Looking for clinical trial possibilities: Not accepted at [facility] Appreciate Heme onc Input Palliative care consulted CEA level increased to 1700s suggests disease progression. Planned to be started on modified FOLFOX 6 chemotherapy later this week. Very poor prognosis S/P Excisional biopsy of metastatic lesion right thigh appreciate Surgery help HTN: Elevated Continue lisinopril Add Amlodipine for better BP control Hydralazine PRN Hypothyroidism: Continue Levothyroxine DVT Px: SQ Lovenox Code status: Full Code Disposition: Plan to return discharge home today Follow up with your PCP in 1 week as advised Follow up with your Oncologist for chemotherapy as scheduled Follow up with your Surgeon in 10 days as advised Seek immediate medical attention if your symptoms reoccur or worsen Total time spent on discharge = 34 minutes This includes examination of the patient, discharge planning, medication reconciliation, and communication with other providers. Discharge Instructions Discharge Instructions Date of Service Jan 26, 2018. Admission Reason for Admission: Rectal Adenocarcinoma Metastatic To Intrapelvic Discharge Discharge Diagnosis / Problem: Metastatic rectal adenocarcinoma, Hypertension Discharge Goals Goal(s): Decrease discomfort, Improve function Activity Recommendations Activity Limitations: resume your previous activity Exercise/Sports Limitations: as tolerated . Instructions / Follow-Up Instructions / Follow-Up Follow up with your PCP in 1 week as advised Follow up with your Oncologist for chemotherapy as scheduled Follow up with your Surgeon in 10 days as advised Seek immediate medical attention if your symptoms reoccur or worsen Current Hospital Diet Patient's current hospital diet: Regular Diet Discharge Diet Recommended Diet: Regular Diet Procedures Procedures Performed: Excisional biosy metastatic lesion right thigh Pending Studies Studies pending at discharge: yes List of pending studies: Pathology report Medical Emergencies . Who to Call and When: Medical Emergencies: If at any time you feel your situation is an emergency, please call 911 immediately. . Non-Emergent Contact Non-Emergency issues call your: Primary Care Provider, Oncologist, Surgeon Call Non-Emergent contact if: you have a fever, your pain is not controlled, your pain is worsening, your pain is unusual for you, your pain is concerning you, wound has increased drainage, wound has increased redness, wound has increased pain, you have any medication questions Seek immediate medical attention if your symptoms reoccur or worsen . . "Provider Documentation" section prepared by Finesse Love. .
--- NOTE | 2018-01-26 14:33 | Palliative Care Consultation ---
Consultation Date of Consultation: Jan 26, 2018. Requesting Physician: Dr Love Attending Physician: Dr Love Reason for Consultation: Discuss goals of care History of Present Illness Was only able to meet with patient briefly, she had just returned from the OR after having a larger piece of tissue removed for further studies. Patient was admitted on 01/24 for 3 day history of abdominal pain with nausea and vomiting. Patient concerned about a possible bowel obstruction as she has had them in the past and her ostomy output had been decreased. Patient denies any current symptoms of nausea vomiting or abdominal pain. Is able to take p.o. and is anxious to return home. Patient expecting to go home today after her procedure. Patient does understand that her disease has progressed, she is to start some outpatient chemo tomorrow with Dr. Maxwell. Patient continues to have a positive outlook regarding her disease. Patient was diagnosed in 2006, her last scan prior to this admission was in March 2015. Scan done here showed new pulmonary nodules and a large new retroperitoneal fernando mass measuring 14 x 10.7 x 8.8 and encasing the abdominal aorta renal vein on the left, also increase in adenopathy in the iliac and inguinal area. Patient lives alone, she was in 2010. Was not able to have a longer discussion regarding palliative care as friends entered room. Did give patient my information to call and make an appointment as an outpatient if she wishes for further follow- up for palliative care. Past Medical/Surgical History Medical History: Metastatic colon cancer diagnosed in 2006-metastases to nodes and lung, hepatomegaly, hypertension, hypothyroidism. Surgical History: Pacemaker, FRANCOIS, appendectomy, cholecystectomy, bilateral hip replacements, biopsy and resection of right thigh mass/node, resection of colon rectal cancer with resulting ostomy. Family History Negative for colon cancer, positive for cancer, diabetes, gallbladder disease, hypertension, and pulmonary disease. Social History Smoking Status: Never Smoker History of Alcohol Use: No Marital Status: (Since 2010) Housing Status: lives alone Occupation Status: employed Review of Systems Constitutional: No fever, No chills Eyes: No worsening of vision ENT: No hearing loss Respiratory: No cough, No shortness of breath Cardiac: No chest pain Abdomen: + constipation (Was admitted for abdominal pain, with nausea and vomiting on 01/24), + problem reported (Colostomy), No pain, No nausea, No vomiting Female : No dysuria Neurologic: No memory loss, No weakness Psychiatric: No anxiety Allergies Coded Allergies: Morphine (Verified Adverse Reaction, Intermediate, GI SYMPTOMS, CAUSES Nausea and vomitting, 01/24/18) Medications Current Inpatient Medications Medications (Trade) Dose Ordered Sig/Erlinda Route Start Time Stop Time Status Last Admin Dose Admin Ioversol (Optiray 320) 125 ml UD PRN IV 01/24/18 10:00 01/28/18 09:59 Ondansetron HCl (Zofran Inj) 4 mg Q6H PRN IV 01/24/18 12:30 02/23/18 12:29 Ketorolac Tromethamine (Toradol Inj) 30 mg Q6H PRN IV 01/24/18 13:15 01/29/18 13:14 01/26/18 13:58 30 MG Acetaminophen 650 mg/Empty Bag 65 ml @ 260 mls/hr Q6H PRN IV 01/24/18 13:15 02/23/18 13:14 Lorazepam (Ativan Inj) 0.5 mg Q4 PRN IV 01/24/18 13:15 02/23/18 13:14 Lorazepam 0.5 mg/ Syringe 1 ml @ 1 mls/min Q4H PRN IV 01/24/18 13:45 02/23/18 13:44 Hydralazine HCl (HydrALAZINE INJ) 10 mg Q8 PRN IV. 01/24/18 13:45 02/23/18 13:44 01/26/18 13:20 5 MG Polyethylene (Miralax Powder Packet) 17 gm TID PO 01/24/18 20:00 02/23/18 19:59 01/25/18 20:11 17 GM Levothyroxine Sodium (Synthroid Tab) 175 mcg DAILYBB PO 01/26/18 06:30 02/25/18 06:29 Lisinopril (Zestril Tab) 10 mg DAILY PO 01/26/18 08:00 02/25/18 07:59 01/26/18 13:51 10 MG Magnesium Oxide (Mag-Ox Tab) 400 mg DAILY PO 01/26/18 08:00 02/25/18 07:59 01/26/18 13:51 400 MG Heparin Sodium (Porcine) (Heparin 100 Unit/ml 5ml Flush) 5 ml PRN PRN IV 01/25/18 23:30 02/24/18 23:29 01/26/18 13:58 5 ML Fentanyl Citrate (Fentanyl Inj) 25 mcg Q5M PRN IV 01/26/18 11:30 01/26/18 16:30 Ondansetron HCl (Zofran Inj) 4 mg ONE PRN IV 01/26/18 11:30 01/26/18 16:30 Ephedrine Sulfate (EpHEDrine SULFATE INJ) 5 mg Q5M PRN IV 01/26/18 11:30 01/26/18 16:30 Atropine Sulfate (Atropine Sulfate 0.1mg/ml Inj) 0.5 mg Q1M PRN IV 01/26/18 11:30 01/26/18 16:30 Oxycodone/ Acetaminophen (Percocet 5-325mg Tab) 1 tab Q4H PRN PO 01/26/18 12:45 02/09/18 12:44 Physical Exam Date Time Temp Pulse Resp B/P (MAP) Pulse Ox O2 Delivery O2 Flow Rate FiO2 01/26/18 14:02 Room Air 01/26/18 13:47 36.5 94 20 178/99 (125) 98 Room Air 01/26/18 13:35 87 18 168/90 99 Room Air 01/26/18 13:20 85 18 167/93 100 Room Air 01/26/18 13:10 37.1 79 18 166/87 100 Room Air 01/26/18 13:00 74 18 152/98 100 Room Air 01/26/18 12:50 81 16 169/105 100 Room Air 01/26/18 12:44 36.5 82 14 169/105 100 Room Air 01/26/18 11:46 Room Air 01/26/18 11:40 36.3 94 20 182/110 (134) 94 Room Air 01/26/18 11:35 36.7 82 20 151/90 (110) 99 01/26/18 07:59 36.6 79 16 157/77 (103) 100 01/26/18 04:53 36.6 88 20 157/89 (111) 97 Room Air 01/26/18 00:40 136/78 (97) 01/26/18 00:00 Room Air 01/25/18 23:03 36.7 80 18 177/121 (139) 100 Room Air 01/25/18 19:32 36.5 76 18 159/98 (118) 99 Room Air 01/25/18 16:00 Room Air 01/25/18 14:33 36.3 88 20 163/93 (116) 100 Room Air General Appearance: no apparent distress Eyes: EOMI ENT: hearing grossly normal Neck: supple Respiratory: no respiratory distress Cardiovascular: regular rate, rhythm Abdomen: non tender Musculoskeletal: normal, normal tone, pertinent finding (Small dressing right upper thigh covering surgical site, no staining) Neurologic/Psychiatric: alert, oriented x 3 Skin: normal color Laboratory Results Last 24 Hours Test 01/26/18 05:59 Sodium Level 137 mmol/L Potassium Level 3.8 mmol/L Chloride Level 105 mmol/L Carbon Dioxide Level 26 mmol/L Anion Gap 6.0 mmol/L Blood Urea Nitrogen 9 mg/dl Creatinine 0.44 mg/dl Est Creatinine Clear Calc Drug Dose 173.4 ml/min Estimated GFR () 128.1 Estimated GFR (Non- 110.5 BUN/Creatinine Ratio 19.6 Random Glucose 88 mg/dl Calcium Level 9.0 mg/dl Magnesium Level 2.1 mg/dl Assessment & Plan Palliative Performance Scale: 90 % (1) Palliative care encounter Assessment & Plan: Patient given contact information, she can make appointment if she is interested in pursuing palliative care (2) Rectal adenocarcinoma metastatic to intrapelvic lymph node Status: Chronic Assessment & Plan: Disease progression on her most recent chemo, patient to start round of chemo tomorrow as an outpatient (3) 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
[2018-01-27] MEDS ORDERED: AMLODIPINE BESYLATE 5 MG TAB PO SCH (08:00)
== END 2018-01-26 15:40 | disposition home or self-care (01) | DRG 375 ==
LOC: C.EDB 09:37 → C.4E 12:29 → EDBEDREQ 12:38 → ENRESERV 12:46
PROVIDERS: ADMIT Hospitalist; ATTEND Internal Medicine
PROC: 0JBL0ZX Excision of Right Upper Leg Subcutaneous Tissue and Fascia, Open Approach, Diagnostic (ICD-10-PCS; principal; 2018-01-26 07:00)
DX: C20 Malignant neoplasm of rectum (principal); C77.5 Secondary and unspecified malignant neoplasm of intrapelvic lymph nodes; C78.00 Secondary malignant neoplasm of unspecified lung; C78.6 Secondary malignant neoplasm of retroperitoneum and peritoneum; C77.2 Secondary and unspecified malignant neoplasm of intra-abdominal lymph nodes; G89.3 Neoplasm related pain (acute) (chronic); K59.00 Constipation, unspecified; R11.2 Nausea with vomiting, unspecified; I10 Essential (primary) hypertension; E03.9 Hypothyroidism, unspecified; E66.9 Obesity, unspecified; Z68.34 Body mass index [BMI] 34.0-34.9, adult; Z93.3 Colostomy status; Z96.643 Presence of artificial hip joint, bilateral; Z92.21 Personal history of antineoplastic chemotherapy; Z79.899 Other long term (current) drug therapy; Z88.5 Allergy status to narcotic agent

== ENCOUNTER → 2018-01-24 | Outpatient (CLI) | payer OTHER ==
[~2018-01-24] MED LIST changes: +CHOLTAB11 PO; -FURO-85 PO; +LEVO-459 PO; +LISI-461 PO; +LISI-729 PO; +MAGN1CAP2 PO; +NRV5 PO; +NTRS PO; +ONDA8TAB62 SL; +OSEL75CA23 PO; +PROM25TA9 PO; +PYRI100T4 PO; +TRIF0.27
== END | disposition home or self-care (01) ==
LOC: C.PATH 08:49
PROVIDERS: ATTEND Internal Medicine Hematology
DX: C20 Malignant neoplasm of rectum (principal); C77.2 Secondary and unspecified malignant neoplasm of intra-abdominal lymph nodes; C78.5 Secondary malignant neoplasm of large intestine and rectum

== ENCOUNTER 2019-03-31 10:37 | Inpatient (IN) ==
--- OUTSIDE RECORDS SUMMARY | 2019-03-31 10:40 | External Medical Summary | Continuity of Care Document ---
:1960 Author Name Jose Washington, Provider Address Unavailable Unavailable , Care Team Providers Name Role Phone Unavailable Unavailable Unavailable JO ANN ALY Unavailable Unavailable Problems Pressure sore (707.00) (L89.90) Colon cancer (153.9) (C18.9) Arthritis (716.90) (M19.90) Hypertension (401.9) (I10) Allergies and Adverse Reactions No Known Drug Allergies (Allergy) Medications Fish Oil 1000 MG Oral Capsule; TAKE 1 CAPSULE DAILY. , M.D. Start: 24-May-2016 Refills: 0 Co Q 10 100 MG Oral Capsule; daily , M.D. Start : 24-May-2016 Refills: 0 Potassium 99 MG Oral Tablet; TAKE 1 TABLET DAILY. , M.D. Start: 24-May-2016 Refills: 0 Synthroid 200 MCG Oral Tablet , M.D. Start: Refills: 0 Multiple Vitamin TABS; TAKE 1 TABLET DAILY. , M.D. Refills: 0 Magnesium Citrate 100 MG Oral Tablet; daily , M.D. Refills: 0 Furosemide 20 MG Oral Tablet; TAKE 1 TABLET DAILY NEEDED. , M.D. Refills: 0 Xeloda 500 MG Oral Tablet; 2000mg twice a day every other week with Cetuximab 500 given IV (chemo for colon) , M.D. Refills: 0 Procedures History of Total Hip Replacement Status: Completed History of Gallbladder Surgery Status: C ompleted History of Chemotherapeutics Status: Com pleted History of Colostomy Status: Completed History of Excision Of Rectal Tumor Transanal Status: Completed Immunizations Immunizations not documented Family History Unknown Family Member Family history of Diabetes Mellitus (V18.0) Status: Active Comments: Family History Family history of Heart Disease (V17.49) Status: Active Comments: Family History Family history of Hypertension (V17.49) Status: Active Comments: Family History Social History - Smoking Status Never smoker Plan of Treatment Planned Observations Planned Goals not documented Results No Known Results Results not documented
[2019-03-31] MEDS ORDERED: SODIUM CHLORIDE 0.9% 1000ML 1,000 ML IV ONE (11:16)
[2019-03-31] MEDS ORDERED: KETOROLAC 30 MG/ML VIAL IV STA (11:16)
--- NOTE | 2019-03-31 11:21 | Emergency Department Note ---
History of Present Illness General Chief complaint: Urinary Symptoms Stated complaint: URINARY SX, LEG SWELLING Time Seen by Provider: 03/31/19 11:00 History of Present Illness Maximum Pain Intensity: 5 This patient is a 58-year-old female presents to the emergency department with complaints of dysuria and difficulty urinating for the last 2 days. The patient has a history of metastatic colon cancer and kidney stones. She said that she started getting kidney stones with her chemotherapy. Last week, she did note some hematuria and flank pain. 2 days ago, she reports feeling chills. She did not take her temperature at home. She has not taken anything [id number] for her symptoms. She does report taking a "fluid pill" yesterday with minimal relief. She denies any nausea. No changes in bowel movements. Home Medications Home Medications Medication Instructions Recorded Confirmed Type cholecalciferol (vitamin D3) 5,000 unit PO DAILY 03/31/19 03/31/19 History furosemide 20 mg PO DAILY PRN 03/31/19 03/31/19 History gabapentin 300 mg PO BID PRN 03/31/19 03/31/19 History levothyroxine 175 mcg PO DAILY 03/31/19 03/31/19 History magnesium oxide 800 mg PO BID 03/31/19 03/31/19 History potassium chloride 20 meq PO BID 03/31/19 03/31/19 History regorafenib [Stivarga] 120 mg PO UD 03/31/19 03/31/19 History Allergies Allergy/AdvReac Type Severity Reaction Status Date / Time morphine AdvReac Intermediate GI Verified 03/31/19 12:54 SYMPTOMS, CAUSES Nausea and vomitting Past Med/Surg History Medical History Lymphedema of lower extremity (Chronic) Hypothyroidism (Chronic) 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) Metastatic colon cancer in female (Chronic) HTN (hypertension) (Chronic) Rectal cancer (Chronic) 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) Colon cancer Surgical History S/P appendectomy (Chronic) S/P cholecystectomy (Chronic) History of hysterectomy (Chronic) Family History Father Cancer Social History Preferred Language: Danish Communication Ability: Effective Stiff Straw Hat Washer Required: No Beliefs That Will Affect Care: None Current Living Situation: Alone Feels Safe at Home: Yes Safety Concerns: Feels Safe At This Time Smoking Status: Never smoker Second Hand Exposure: Yes () Hx Alcohol Use: No Hx Substance Use: No Review of Systems A total of 10 systems reviewed and were otherwise negative Physical Exam Vital Signs Vital Signs - 24 hr 03/31/19 10:54 03/31/19 12:37 03/31/19 15:04 Temperature 36.8 C 36.8 C Temperature Source Oral Oral Sepsis Recent Fever Within 48 Hours No Sepsis New/Unexplained Change in Mental Status No Sepsis Action Taken by Nursing No Action Required Pulse Rate 87 Pulse Rate [Apical] 74 81 Respiratory Rate 19 20 20 Respiratory Depth Normal Blood Pressure 124/82 Blood Pressure [Right Arm] 126/84 136/95 Blood Pressure Mean 96 Blood Pressure Mean [Right Arm] 98 108 Blood Pressure Position Sitting Pulse Oximetry 100 99 98 Oxygen Delivery Method Room Air Room Air Room Air Constitutional WD/WN, vitals as above Eyes EOM intact bilaterally ENMT Oral mucosa slightly dry. Neck trachea midline Respiratory normal respiratory effort, lungs clear to auscultation Cardiovascular RRR, no murmur, no edema Gastrointestinal (Abdomen) Colostomy noted. Small amount of gas noted in the colostomy bag. Mild tenderness to palpation over the suprapubic region. No CVA tenderness noted bilaterally. Musculoskeletal +2 pitting edema in the lower extremities right greater than left. No erythema or warmth appreciated bilaterally. Capillary refill in the toes is less than 2 seconds. Skin no rashes, warm and dry Neurologic Alert and oriented x3. No focal motor deficits. Psychiatric Acting appropriately Course Patient was seen and examined Vital signs including blood pressure were reviewed medications list was verified with patient Labs were obtained, and a saline lock was established The patient was ordered Toradol 30 mg IV and 1 L of normal saline The case was discussed with my supervising physician who is in agreement with my plan. The patient's imaging was reviewed. We discussed the findings. She voiced understanding. We discussed disposition as options. She was in agreement to stay. The patient was given 1 dose of Rocephin 1 g IV. She was also ordered magnesium sulfate 1 g IV and a K rider 10 mEq. The case was discussed with the [facility]. They kindly agreed to evaluate the patient for possible admission. A Bennett catheter was inserted. The patient's vitals stayed stable in the emergency department. Consultations Consultation #1: [facility] Administered Medications Acetaminophen (Tylenol) 650 mg PO Q4H PRN PRN Reason: Pain or Fever Stop: 04/30/19 17:22 Last Admin: 03/31/19 18:37 Dose: 650 mg Documented by: [id number] Sodium Chloride (1/2 Nss) 1,000 mls @ 125 mls/hr IV .Q8H BERTRAM Stop: 04/01/19 01:22 Last Admin: 03/31/19 18:47 Dose: 125 mls/hr Documented by: [id number] Ioversol (Optiray 320 100ml) 94 ml IV ONCE PRN PRN Reason: Interaction Checking Stop: 04/04/19 14:09 Last Admin: 03/31/19 14:10 Dose: 1 ml Documented by: [id number] Ondansetron HCl (Zofran) 4 mg IV Q6H PRN PRN Reason: Nausea Stop: 04/30/19 17:22 Last Admin: 03/31/19 18:54 Dose: 4 mg Documented by: [id number] Discontinued Medications Sodium Chloride (Nss 1000ml) 1,000 mls @ 999 mls/hr IV .Q1H1M ONE Stop: 03/31/19 12:16 Last Infusion: 03/31/19 13:20 Dose: 0 mls/hr Documented by: [id number] Admin: 03/31/19 12:15 Dose: 999 mls/hr Documented by: [id number] Magnesium Sulfate/Dextrose (Magnesium Sulfate / D5w) 1 gm in 100 mls @ 100 mls/hr IV ONE ONE Stop: 03/31/19 16:15 Last Infusion: 03/31/19 19:02 Dose: 0 mls/hr Documented by: [id number] Infusion: 03/31/19 17:45 Dose: 100 mls/hr Documented by: [id number] Infusion: 03/31/19 17:01 Dose: 0 mls/hr Documented by: [id number] Admin: 03/31/19 17:00 Dose: 100 mls/hr Documented by: [id number] Potassium Chloride (K Rosas / Wtr) 10 meq in 100 mls @ 100 mls/hr IV ONE ONE Stop: 03/31/19 16:15 Last Infusion: 03/31/19 19:02 Dose: 0 mls/hr Documented by: [id number] Infusion: 03/31/19 17:44 Dose: 100 mls/hr Documented by: [id number] Infusion: 03/31/19 17:01 Dose: 0 mls/hr Documented by: [id number] Admin: 03/31/19 17:00 Dose: 100 mls/hr Documented by: [id number] Ceftriaxone Sodium 2,000 mg/ (Dextrose) 70 mls @ 100 mls/hr IV NOW STA Stop: 03/31/19 16:16 Last Infusion: 03/31/19 16:41 Dose: 0 mls/hr Documented by: [id number] Admin: 03/31/19 16:04 Dose: 100 mls/hr Documented by: [id number] Potassium Chloride 40 meq/Magnesium Sulfate 4 gm/ Sodium Chloride 528 mls @ 125 mls/hr IV .Q4H14M BERTRAM Stop: 03/31/19 20:28 Last Admin: 03/31/19 18:47 Dose: 125 mls/hr Documented by: [id number] Ketorolac Tromethamine (Toradol) 30 mg IV NOW STA Stop: 03/31/19 11:17 Last Admin: 03/31/19 12:15 Dose: 30 mg Documented by: [id number] Medical Decision Making Medical Records Attestation: I reviewed the patient's medical records. Home Medications Current Medication List: was personally reviewed by id Laboratory Data Attestation: I reviewed the patient's lab results. Result diagrams: 03/31/19 12:45 03/31/19 12:45 Lab Results 03/31/19 03/31/19 03/31/19 Range/Units 11:28 12:45 12:45 WBC 5.54 (4.8-10.8) K/uL RBC 2.75 L (4.2-5.4) M/uL Hgb 8.2 L (12.0-16.0) g/dL Hct 25.7 L (37-47) % MCV 93.5 (80-100) fL MCH 29.8 (25-34) pg MCHC 31.9 L (32-36) g/dL RDW Std Deviation 77.0 H (36.4-46.3) fL RDW Coeff of Lluvia 22.5 H (11.5-14.5) % Plt Count 217 (130-400) K/uL MPV 9.1 (7.4-10.4) fL Immature Gran % (Auto) 0.5 % Neut % (Auto) 71.7 % Lymph % (Auto) 9.7 % [place] % (Auto) 17.9 % Eos % (Auto) 0.0 % Baso % (Auto) 0.2 % Immature Gran # (Auto) 0.03 H (0.00-0.02) K/uL Neut # (Auto) 3.97 (1.4-6.5) K/uL Lymph # (Auto) 0.54 L (1.2-3.4) K/uL [place] # (Auto) 0.99 H (0.11-0.59) K/uL Eos # (Auto) 0.00 (0-0.5) K/uL Baso # (Auto) 0.01 (0-0.2) K/uL Anisocytosis Present PT 12.0 (9.0-12.0) Seconds INR 1.2 H (0.9-1.1) Sodium (136-145) mmol/L Potassium (3.5-5.1) mmol/L Chloride (98-107) mmol/L Carbon Dioxide (21-32) mmol/L Anion Gap (3-11) BUN (7-18) mg/dl Creatinine (0.6-1.2) mg/dl Est Cr Clr Drug Dosing ml/min Est GFR ( Amer) Est GFR (Non-Af Amer) BUN/Creatinine Ratio (10-20) Glucose (70-99) mg/dl Calcium (8.5-10.1) mg/dl Phosphorus (2.5-4.9) mg/dl Magnesium (1.8-2.4) mg/dl Total Bilirubin (0.2-1) mg/dl AST (15-37) U/L ALT (12-78) U/L Alkaline Phosphatase (45-117) U/L Total Protein (6.4-8.2) gm/dl Albumin (3.4-5.0) gm/dl Globulin (2.5-4.0) gm/dl Albumin/Globulin Ratio (0.9-2) Urine Color Yellow Urine Appearance Clear (Clear) Urine pH 6.0 (4.5-7.5) Ur Specific [place] 1.017 (1.000-1.030) Urine Protein 1+ H (Negative) Urine Glucose (UA) Negative (Negative) Urine Ketones Negative (Negative) Urine Blood Negative (Negative) Urine Nitrite Negative (Negative) Urine Bilirubin Negative (Negative) Urine Urobilinogen Negative (Negative) Ur Leukocyte Esterase 1+ H (Negative) Urine WBC (Auto) 5-10 H (0-5) /hpf Urine RBC (Auto) 0-4 (0-4) /hpf U Hyaline Cast (Auto) 5-10 H (0-5) /lpf U Epithel Cells (Auto) 20-30 H (0-5) /lpf Urine Bacteria (Auto) Negative (Negative) 03/31/19 03/31/19 Range/Units 12:45 12:45 WBC (4.8-10.8) K/uL RBC (4.2-5.4) M/uL Hgb (12.0-16.0) g/dL Hct (37-47) % MCV (80-100) fL MCH (25-34) pg MCHC (32-36) g/dL RDW Std Deviation (36.4-46.3) fL RDW Coeff of Lluvia (11.5-14.5) % Plt Count (130-400) K/uL MPV (7.4-10.4) fL Immature Gran % (Auto) % Neut % (Auto) % Lymph % (Auto) % [place] % (Auto) % Eos % (Auto) % Baso % (Auto) % Immature Gran # (Auto) (0.00-0.02) K/uL Neut # (Auto) (1.4-6.5) K/uL Lymph # (Auto) (1.2-3.4) K/uL [place] # (Auto) (0.11-0.59) K/uL Eos # (Auto) (0-0.5) K/uL Baso # (Auto) (0-0.2) K/uL Anisocytosis PT (9.0-12.0) Seconds INR (0.9-1.1) Sodium 137 (136-145) mmol/L Potassium 2.7 L (3.5-5.1) mmol/L Chloride 97 L (98-107) mmol/L Carbon Dioxide 30 (21-32) mmol/L Anion Gap 10.0 (3-11) BUN 11 (7-18) mg/dl Creatinine 0.48 L (0.6-1.2) mg/dl Est Cr Clr Drug Dosing 152.5 ml/min Est GFR ( Amer) 123.6 Est GFR (Non-Af Amer) 106.6 BUN/Creatinine Ratio 23.6 H (10-20) Glucose 91 (70-99) mg/dl Calcium 8.1 L (8.5-10.1) mg/dl Phosphorus 3.4 (2.5-4.9) mg/dl Magnesium 1.0 L (1.8-2.4) mg/dl Total Bilirubin 1.1 H (0.2-1) mg/dl AST 77 H (15-37) U/L ALT 35 (12-78) U/L Alkaline Phosphatase 338 H (45-117) U/L Total Protein 7.0 (6.4-8.2) gm/dl Albumin 2.4 L (3.4-5.0) gm/dl Globulin 4.6 H (2.5-4.0) gm/dl Albumin/Globulin Ratio 0.5 L (0.9-2) Urine Color Urine Appearance (Clear) Urine pH (4.5-7.5) Ur Specific [place] (1.000-1.030) Urine Protein (Negative) Urine Glucose (UA) (Negative) Urine Ketones (Negative) Urine Blood (Negative) Urine Nitrite (Negative) Urine Bilirubin (Negative) Urine Urobilinogen (Negative) Ur Leukocyte Esterase (Negative) Urine WBC (Auto) (0-5) /hpf Urine RBC (Auto) (0-4) /hpf U Hyaline Cast (Auto) (0-5) /lpf U Epithel Cells (Auto) (0-5) /lpf Urine Bacteria (Auto) (Negative) Imaging Data Attestation: I personally reviewed and interpreted this imaging study as follows: Radiologist's Impression: CT of the abdomen and pelvis with IV contrast The bladder is markedly distended but otherwise grossly unremarkable. 2. There is mild bilateral hydronephrosis. This is new from 01/24/2018, and may be related to the markedly distended bladder. The ureters are abutted by bulky retroperitoneal lymphadenopathy but not clearly encased. 3. There is asymmetric left-sided perinephric stranding. Correlate clinically and with urinalysis for evidence of urinary tract infection. 4. There is evidence of progressive multifocal metastatic disease as compared to 01/24/2018. 5. Multifocal hepatic metastatic disease is new from previous. There is been significant progression of multifocal pulmonary metastatic disease. 6. Bulky retroperitoneal lymphadenopathy persists but has modestly decreased in size from 01/24/2018. Bulky inguinal adenopathy is unchanged to modestly progressed, and upper abdominal lymphadenopathy has clearly progressed from previous. 7. There is postoperative change from rectal resection with left lower quadrant colostomy. No bowel obstruction is seen. 8. There is a large parastomal hernia as well as a ventral hernia in the pelvis, both of which contains small bowel loops. 9. There is trace free fluid in the left paracolic gutter. 10. There are acute to subacute appearing right anterolateral rib fractures. Correlate for point tenderness. 11. Additional findings as above. Electronically signed by: Filiberto Morin M.D. 03/31/2019 2:40 PM Venous ultrasound of the lower extremities bilaterally There is no sonographic evidence of deep venous thrombosis identified in the right or left lower extremity. Electronically signed by: Filiberto Morin M.D. 03/31/2019 2:46 PM Dictated: 03/31/19 1446 Transcribed: 03/31/19 144 Blood Pressure Blood Pressure Findings: Normal blood pressure MDM Narrative Differential diagnosis: Ureteral stone, UTI, pyelonephritis, advanced metastatic disease, adverse drug reaction, among others This patient is a 58-year-old female who presents to the emergency department with urinary symptoms as noted above. A bladder scan was performed. The patient had an elevated postvoid residual of almost 700 cc. Her labs reveal significant abnormalities in her electrolytes. Although the patient's urine was contaminated, there were some white blood cells associated with perinephric stranding. I was concerned that she possibly could have a pyelonephritis. I also been uncertain why the patient is retaining urine. Unfortunately, the CAT scan so was progression of her disease. I do not feel comfortable sending this patient home. The hospitalist consultation was felt to be warranted. They will evaluate the patient for possible inpatient management. Impression & Plan Pyelonephritis Discharge Plan Visit Data *Final* Discharge Date/Time: 03/31/19 17:06 Chief Complaint: Urinary Symptoms Stated Complaint: URINARY SX, LEG SWELLING ED Provider: Mauricio Cali ED Midlevel Provider: Laura Batista Discharge Problem: Pyelonephritis Patient Disposition: Admitted As Inpatient Condition: Fair Discharge Instructions Interventions: ED Discharge Assessment Last Done: 03/31/19 17:06
[2019-03-31 12:04] LABS: Appearance Urine Clear (Clear); Bacteria Urine Automated Negative (Negative); Bilirubin Urine Negative (Negative); Blood Urine Negative (Negative); Color Urine Yellow; Epithelial Cell Urine Auto 20-30 /lpf (0-5); Glucose Urine UA Negative (Negative); Ketones Urine Negative (Negative); Leukocyte Esterase Urine 1+ (Negative); Nitrite Urine Negative (Negative); Protein Urine 1+ (Negative); RBC Urine Automated 0-4 /hpf (0-4); Specific Gravity Urine 1.017 (1.000-1.030); Urobilinogen Urine Negative (Negative)
[2019-03-31 13:16] LABS: Basophils # (auto) 0.01 K/uL (0-0.2); Basophils % (auto) 0.2 %; Hematocrit (blood only) 25.7 % (37-47); Hemoglobin 8.2 g/dL (12.0-16.0); Immature Granulocytes # (auto) 0.03 K/uL (0.00-0.02); Immature Granulocytes % (auto) 0.5 %; Lymphocytes # (auto) 0.54 K/uL (1.2-3.4); Lymphocytes % (auto) 9.7 %; Mean Corpuscular Hgb Conc 31.9 g/dL (32-36); Mean Corpuscular Volume 93.5 fL (80-100); Mean Platelet Volume 9.1 fL (7.4-10.4); Monocytes # (auto) 0.99 K/uL (0.11-0.59); Monocytes % (auto) 17.9 %; Neutrophils # (auto) 3.97 K/uL (1.4-6.5); Neutrophils % (auto) 71.7 %; Platelet Count 217 K/uL (130-400); RDW Coefficient of Variation 22.5 % (11.5-14.5); Red Blood Count 2.75 M/uL (4.2-5.4); White Blood Count 5.54 K/uL (4.8-10.8)
[2019-03-31 13:28] LABS: INR 1.2 (0.9-1.1)
[2019-03-31 13:33] LABS: Albumin Level 2.4 gm/dl (3.4-5.0); BUN Creatinine Ratio 23.6 (10-20); Calcium 8.1 mg/dl (8.5-10.1); Creatinine Clr Calc Pharmacy 152.5 ml/min; Est GFR (African American) 123.6; Est GFR (Non-African American) 106.6; Potassium 2.7 mmol/L (3.5-5.1)
[2019-03-31 13:36] LABS: Albumin Globulin Ratio 0.5 (0.9-2); Bilirubin,Total 1.1 mg/dl (0.2-1); Globulin 4.6 gm/dl (2.5-4.0)
[2019-03-31] MEDS ORDERED: IOVERSOL 100ml IV PRN (14:10)
[2019-03-31 14:18] LABS: Anisocytosis Present
--- NOTE | 2019-03-31 14:42 | CT Scan Report ---
CT SCAN OF THE ABDOMEN AND PELVIS WITH IV CONTRAST CLINICAL HISTORY: Suprapubic pelvic pain. History of rectal carcinoma. COMPARISON STUDY: Abdominal CT dated 01/24/2018. TECHNIQUE: Following the IV administration of 94 cc of Optiray 320, CT scan of the abdomen and pelvi s is performed from the lung bases to the proximal femora. Images are reviewed in the axial, sagittal , and coronal planes. IV contrast was administered without complication. A dose lowering technique wa s utilized adhering to the principles of ALARA. CT DOSE: 864.20 mGy.cm FINDINGS: Lung bases: The tip of a central venous infusion port terminates at the cavoatrial junction. The hear t is normal in size and without pericardial effusion. No airspace consolidation or pleural effusion i s identified. There is multifocal pulmonary metastatic disease, with greater than 15 lesions identifi ed. These measure up to 14 mm. Liver: The contrast-enhanced liver is normal in size, contour, and attenuation. There is no intrahepa tic biliary ductal dilatation. The hepatic veins and portal veins are patent. There is evidence of mu ltifocal hepatic metastatic disease with at least 5 large lesions identified. This is new from 018. The largest lesion is seen in the superior right lobe on image #44 and measures 4.3 x 2.8 cm. Gallbladder: Surgically absent noting clips in the gallbladder fossa. Spleen: Normal in size and attenuation. Pancreas: Atrophic and grossly unremarkable. Adrenal glands: Unremarkable. Kidneys: The contrast enhanced kidneys are normal in size. There is mild bilateral hydroureteronephro sis, new from 01/24/2018. The kidneys enhance symmetrically. There is left-sided perinephric stranding . Abdominal vasculature: The abdominal aorta is normal in course and caliber noting moderate atheroscle rotic calcification. Patency of the inferior vena cava cannot be confirmed. Bowel: There is postoperative change from rectal resection with a diverticulum in left lower quadrant colostomy. No bowel obstruction is seen. There is a large parastomal hernia which contains nonobstru cted small bowel loops. An additional small bowel containing ventral hernia is identified in the uppe r pelvis. The cecum is located in the pelvis. The appendix is not identified and reported surgically absent. Peritoneum: There is no intraperitoneal free air. There is trace fluid seen in the left paracolic gut ter. Lymphadenopathy: There is bulky confluent retroperitoneal lymphadenopathy which encases the abdominal aorta and IVC. This also abuts the ureters. Several of these nodes are calcified suggesting treatmen t related change. Stranding seen throughout the retroperitoneum. The largest fernando aggregate is seen on image #181 and measures approximately 10 x 5 cm in dimension. There are enlarged right external il iac and pelvic sidewall nodes. There is bulky inguinal adenopathy, right greater than left. The large st node on the right measures 4.8 x 4.1 cm. Upper abdominal lymphadenopathy has increased from previo us. A portacaval node on image #132 measures 5.2 x 3.2 cm. Pelvic viscera: Evaluation of the pelvis is severely degraded by streak artifact from bilateral hip a rthroplasties. The bladder is distended and grossly unremarkable. The uterus is surgically absent. No adnexal lesion is seen. A 4.7 x 4.7 cm perineal mass is seen on image #437, also likely representing recurrent/metastatic disease. Skeletal structures: The skeletal structures are osteopenic. A large hemangioma is seen in the body o f L1. No lytic or blastic lesions are seen. Bilateral hip arthroplasties are in place. There are acut e to subacute appearing right anterolateral 7th through 10th rib fractures. There is mild lumbosacral spondylosis. A mild superior end plate compression deformities noted in L4. Sclerotic degenerative c hange is noted in the sacroiliac joints. Soft tissues: There is dermal thickening and subcutaneous soft tissue induration identified in the le ft ventral pelvis inferior to the ostomy site. IMPRESSION: 1. The bladder is markedly distended but otherwise grossly unremarkable. 2. There is mild bilateral hydronephrosis. This is new from 01/24/2018, and may be related to the whitney edly distended bladder. The ureters are abutted by bulky retroperitoneal lymphadenopathy but not duane rly encased. 3. There is asymmetric left-sided perinephric stranding. Correlate clinically and with urinalysis for evidence of urinary tract infection. 4. There is evidence of progressive multifocal metastatic disease as compared to 01/24/2018. 5. Multifocal hepatic metastatic disease is new from previous. There is been significant progression of multifocal pulmonary metastatic disease. 6. Bulky retroperitoneal lymphadenopathy persists but has modestly decreased in size from 01/24/2018. Bulky inguinal adenopathy is unchanged to modestly progressed, and upper abdominal lymphadenopathy thrasher s clearly progressed from previous. 7. There is postoperative change from rectal resection with left lower quadrant colostomy. No bowel o bstruction is seen. 8. There is a large parastomal hernia as well as a ventral hernia in the pelvis, both of which contai ns small bowel loops. 9. There is trace free fluid in the left paracolic gutter. 10. There are acute to subacute appearing right anterolateral rib fractures. Correlate for estella jama. 11. Additional findings as above. Electronically signed by: Filiberto Morin M.D. 03/31/2019 2:40 PM
--- NOTE | 2019-03-31 14:48 | Ultrasound Report ---
ULTRASOUND BILATERAL LOWER EXTREMITY VENOUS CLINICAL HISTORY: Lower extremity edema. COMPARISON STUDY: No priors. TECHNIQUE: Real-time, grayscale, and color Doppler sonography of the deep veins of the right and left lower extremity was performed from the inguinal crease to the calf. Compression and augmentation wer e utilized. FINDINGS: There is no sonographic evidence of deep venous thrombosis identified in the right or left lower extremity. The common femoral, superficial femoral, and popliteal veins are patent and normally compressible bilaterally. The greater saphenous vein and the profunda femoris vein at the junction w ith the common femoral vein are clear in both legs. The visualized calf veins are patent bilaterally. Right inguinal adenopathy is noted. IMPRESSION: There is no sonographic evidence of deep venous thrombosis identified in the right or lef t lower extremity. Electronically signed by: Filiberto Morin M.D. 03/31/2019 2:46 PM
[2019-03-31] MEDS ORDERED: POTASSIUM CHLORIDE / WTR 10 MEQ/100 ML PLCT IV ONE (15:16)
[2019-03-31] MEDS ORDERED: MAGNESIUM SULFATE / D5W 1 GM/100 ML BAG IV ONE (15:16)
[2019-03-31] MEDS ORDERED: cefTRIAXone SODIUM 2,000 MG in DEXTROSE 5% 50 ML IV STA (15:35)
--- NOTE | 2019-03-31 15:48 | Emergency Department Note ---
ED Visit Note This Patient was discussed with the physician drafter assistant, Laura Batista PA-C. The pertinent historical and physical exam findings were confirmed. I agree with the studies ordered and with the interpretations of these studies. I agree with the disposition and care plan. .
[2019-03-31] MEDS ORDERED: POTASSIUM CHLORIDE 40 MEQ, MAGNESIUM SULFATE 50% 4 GM in SODIUM CHLORIDE 0.9% 500 ML IV SCH (16:15)
--- NOTE | 2019-03-31 17:02 | History & Physical Report ---
Date of Service March 31, 2019 Assessment & Plan (1) Urinary retention: (2) UTI (urinary tract infection): Pt presented with urinary hesitancy, dysuria, and urgency starting last night with urinary retention and suprapubic pressure today. Reported chills couple of days ago. In ER pt afebrile, vitals stable No leukocytosis. UA: 1+ protein, 1+ leuk esterase, 5-10 WBC, 20-30 epithelial, No bacteria CT ABD/PELVIS: The bladder is markedly distended but otherwise grossly unremarkable. Mild bilateral hydronephrosis. This is new from 01/24/2018, and may be related to the markedly distended bladder. The ureters are abutted by bulky retroperitoneal lymphadenopathy but not clearly encased. Asymmetric left-sided perinephric stranding. -Pt with No CVA tenderness on exam. -In ER pt was given Rocephin -Bennett placed in ER and has drained almost 1L. Pt with improved symptom relief -Continue Bennett -Rocephin -Consider urology consult if no improvement or pt unable to spontaneously urinate -Lasix will be held today secondary to anticipated dehydration from urinary retention, reassess tomorrow (3) Hypokalemia: K: 2.7. K as 2.8 on 03/28/19 and pt was to increase KCl 10meq BID to 20meq BID however has not started yet -In ER pt given 10meq K rider -Probable secondary to chemo, postobstructive diuresis -Replace and monitor (4) Hypomagnesemia: Magnesium: 1.0 Magnesium was 1.1 on 03/28/19 and pt was to increase magnesium from 400mg BID to 800mg BID however has not started yet. (Pt has had mag of 1.1-1.3 over past couple of months) -In ER pt given 1gm magnesium sulfate -Probable secondary to chemo, postobstructive diuresis DVT Prophylaxis -Lovenox SQ Full Code as per discussion with pt Follows with Dr Diogenes Garcia for routine care Pt was seen and care coordinated with Dr Santoyo. See addendum History of Present Illness Chief Complaint: Urinary retention Primary Care Provider: Saman Maxwell MD Pt is 58 y/o F with PMH metastatic rectal CA to inguinal lymph nodes, lungs and liver s/p transanal resection radiation and chemo, hypothyroidism, lower extremity lymphedema presented to ER with c/o urinary retention. Pt reports noticing decreased urine output yesterday evening and today unable to fully empty bladder. States had some dysuria and having suprapubic pressure. Denies other abdominal pain, flank pain or back pain. Denies any noted hematuria past couple of days. Reports chills a couple of days ago with temp 99F. She reports a couple of weeks ago had hematuria, lower abdominal pain and was dx with kidney stones which she reports passing on her own. Last week reports nasal congestion, bilateral ear pressure which has since resolved. Pt states has intermittent increased loose stool to colostomy bag and noticed increased watery output a couple of days ago. States past 2 days with normal stool consistency and amount. Reports intermittent bleeding of stoma without bleeding recently. States intermittent edema of bilateral lower legs with right usually bigger than left which she relates to chemo and lymphadenopathy. States increased edema past couple of days, and hasn't been taking her lasix secondary to urinary symptoms. Denies extremity pain or erythema. Last chemo 02/21/19. Last iron infusion 03/09/19. Has not started Stivarga yet. Denies diaphoresis, N/V/D/C, SHEEHAN, dizziness, syncope, vision changes, neck pain, CP, SOB, orthopnea, palpitations, cough, weakness. Allergies Allergy/AdvReac Type Severity Reaction Status Date / Time morphine AdvReac Intermediate GI Verified 03/31/19 12:54 SYMPTOMS, CAUSES Nausea and vomitting Home Medications Home Medications Medication Instructions Recorded Confirmed Type cholecalciferol (vitamin D3) 5,000 unit PO DAILY 03/31/19 03/31/19 History furosemide 20 mg PO DAILY PRN 03/31/19 03/31/19 History gabapentin 300 mg PO BID PRN 03/31/19 03/31/19 History levothyroxine 175 mcg PO DAILY 03/31/19 03/31/19 History magnesium oxide 800 mg PO BID 03/31/19 03/31/19 History potassium chloride 20 meq PO BID 03/31/19 03/31/19 History regorafenib [Stivarga] 120 mg PO UD 03/31/19 03/31/19 History Past Med/Surg History Medical History Lymphedema of lower extremity (Chronic) Hypothyroidism (Chronic) 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) Metastatic colon cancer in female (Chronic) HTN (hypertension) (Chronic) Rectal cancer (Chronic) 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) Colon cancer Surgical History S/P appendectomy (Chronic) S/P cholecystectomy (Chronic) History of hysterectomy (Chronic) Family History Father Cancer Social History Preferred Language: Icelandic Communication Ability: Effective Coding Machine Operator Required: No Beliefs That Will Affect Care: None Current Living Situation: Alone Feels Safe at Home: Yes Safety Concerns: Feels Safe At This Time Smoking Status: Never smoker Second Hand Exposure: Yes () Hx Alcohol Use: No Hx Substance Use: No Review of Systems Review of Systems: All systems reviewed & are unremarkable except as noted in HPI & below Physical Exam Physical Exam: General: chronic ill appearing, no acute distress, obese Head: normocephalic, atraumatic Eyes: PERRL, EOM's intact, conjunctiva non-injected, anicteric ENT: normal inspection external ears, nose, mucous membranes moist Neck: supple, trachea midline Lungs: clear, no respiratory distress, no wheezing/rhonchi/rales; chest: +port to left upper chest without surrounding edema or erythema CV: RRR, no murmur Abd: hypoactive BS, +colostomy bag to left lower abdomen, +inguinal lymphadenopathy right, soft, some mild suprapubic pressure to palpation, otherwise abdomen non-tender. Ext: no cyanosis or erythema, no calf tenderness, BLE: 2+edema Neuro: A&O x 3, no focal deficits noted, normal affect Skin: warm, dry; hyperpigmentation skin Results & Data Vital Signs (Past 12 Hours) Vital Signs Temp Pulse Pulse Resp BP BP Pulse Ox 03/31/19 15:04 36.8 C 81 20 136/95 98 03/31/19 12:37 74 20 126/84 99 03/31/19 10:54 36.8 C 87 19 124/82 100 Laboratory Results Short CBC 03/31/19 Range/Units 12:45 WBC 5.54 (4.8-10.8) K/uL Hgb 8.2 L (12.0-16.0) g/dL Hct 25.7 L (37-47) % Plt Count 217 (130-400) K/uL BMP 03/31/19 12:45 Sodium 137 Potassium 2.7 L Chloride 97 L Carbon Dioxide 30 BUN 11 Creatinine 0.48 L Glucose 91 Calcium 8.1 L Liver Function 03/31/19 Range/Units 12:45 Total Bilirubin 1.1 H (0.2-1) mg/dl AST 77 H (15-37) U/L ALT 35 (12-78) U/L Alkaline Phosphatase 338 H (45-117) U/L Albumin 2.4 L (3.4-5.0) gm/dl Urine 03/31/19 Range/Units 11:28 Urine Color Yellow Urine Appearance Clear (Clear) Urine pH 6.0 (4.5-7.5) Ur Specific [place] 1.017 (1.000-1.030) Urine Protein 1+ H (Negative) Urine Glucose (UA) Negative (Negative) Diagnostic Findings CT ABD/PELVIS: IMPRESSION: 1. The bladder is markedly distended but otherwise grossly unremarkable. 2. There is mild bilateral hydronephrosis. This is new from 01/24/2018, and may be related to the markedly distended bladder. The ureters are abutted by bulky retroperitoneal lymphadenopathy but not clearly encased. 3. There is asymmetric left-sided perinephric stranding. Correlate clinically and with urinalysis for evidence of urinary tract infection. 4. There is evidence of progressive multifocal metastatic disease as compared to 01/24/2018. 5. Multifocal hepatic metastatic disease is new from previous. There is been significant progression of multifocal pulmonary metastatic disease. 6. Bulky retroperitoneal lymphadenopathy persists but has modestly decreased in size from 01/24/2018. Bulky inguinal adenopathy is unchanged to modestly progressed, and upper abdominal lymphadenopathy has clearly progressed from previous. 7. There is postoperative change from rectal resection with left lower quadrant colostomy. No bowel obstruction is seen. 8. There is a large parastomal hernia as well as a ventral hernia in the pelvis, both of which contains small bowel loops. 9. There is trace free fluid in the left paracolic gutter. 10. There are acute to subacute appearing right anterolateral rib fractures. Correlate for point tenderness. 11. Additional findings as above. VENOUS DOPPLER: IMPRESSION: There is no sonographic evidence of deep venous thrombosis identified in the right or left lower extremity. Supervising Physician Co-Signing Physician Notes I have seen and examined the patient and have discussed the case with the provider above. I agree with the assessment and plan as stated with the foll owing exceptions. Ms. Martines is a 58-year-old female with a 12-year history of colon cancer that is metastatic. Her last chemo was 02/21/2019 and she was on leucovorin, 5-FU, oxaliplatin, Panitumumab. As a result of increased lymphadenopathy seen on recent CT scan 2 weeks ago, she has switched to regorafenib which she has not instead started. She had reported dysuria, urinary urgency and hesitancy and some chills in the last couple of days. This morning she was unable to urinate and had some lower abdominal pressure. On arrival to the ER she was found to have acute urinary retention and feels much better after Bennett catheter placement. She otherwise denies fevers or flank pain and clinically does not appear to have pyelonephritis. CT of the abdomen and pelvis reveals some perinephric stranding however, there is lymphadenopathy abutting the ureters as well. In the setting of infectious symptoms, urinary retention is likely related to UTI. Electrolyte abnormalities including hypo magnesemia, hypokalemia are likely secondary to a combination of recent chemotherapy, questionable increased GI output/diarrhea and postobstructive diuresis. Physical exam reveals 2+ pitting edema bilaterally to the thighs with inguinal lymphadenopathy on the right. Abdomen is soft and nontender without distention. Lungs are clear to auscultation. Cardiac auscultation reveals S1/S2 heard with no evidence of murmurs, gallops, rubs. There is no JVD present. She is mentating normally and is in no acute distress. Skin exam reveals discoloration in the form of a daniel that is generalized. Skin is otherwise warm and dry. There is no CVA tenderness bilaterally. Plan includes correction of electrolytes as above and maintaining Bennett in place for minimum 48 hours while antibiotics continue to infuse. Continue Rocephin pending urine culture. DO Natanael
[2019-03-31] MEDS ORDERED: ACETAMINOPHEN 325 MG TAB PO PRN (17:23)
[2019-03-31] MEDS ORDERED: SODIUM CHLORIDE 0.45 % 1,000 ML IV SCH (17:23)
[2019-03-31] MEDS ORDERED: POLYETHYLENE (MIRALAX) 17 GM PACK PO PRN (17:23)
--- NOTE | 2019-03-31 17:48 | History & Physical Report ---
Date of Service March 31, 2019 History of Present Illness Primary Care Provider: Saman Maxwell MD Allergies Allergy/AdvReac Type Severity Reaction Status Date / Time morphine AdvReac Intermediate GI Verified 03/31/19 12:54 SYMPTOMS, CAUSES Nausea and vomitting Home Medications Home Medications Medication Instructions Recorded Confirmed Type cholecalciferol (vitamin D3) 5,000 unit PO DAILY 03/31/19 03/31/19 History furosemide 20 mg PO DAILY PRN 03/31/19 03/31/19 History gabapentin 300 mg PO BID PRN 03/31/19 03/31/19 History levothyroxine 175 mcg PO DAILY 03/31/19 03/31/19 History magnesium oxide 800 mg PO BID 03/31/19 03/31/19 History potassium chloride 20 meq PO BID 03/31/19 03/31/19 History regorafenib [Stivarga] 120 mg PO UD 03/31/19 03/31/19 History Past Med/Surg History Medical History Lymphedema of lower extremity (Chronic) Hypothyroidism (Chronic) 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) Metastatic colon cancer in female (Chronic) HTN (hypertension) (Chronic) Rectal cancer (Chronic) 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) Colon cancer Surgical History S/P appendectomy (Chronic) S/P cholecystectomy (Chronic) History of hysterectomy (Chronic) Family History Father Cancer Social History Preferred Language: Malay Feels Safe at Home: Yes Smoking Status: Never smoker Hx Alcohol Use: No Hx Substance Use: No Results & Data Vital Signs (Past 12 Hours) Vital Signs Temp Pulse Pulse Pulse Resp BP BP 03/31/19 17:22 36.4 C L 74 18 143/87 H 03/31/19 17:06 82 20 140/79 03/31/19 15:04 36.8 C 81 20 03/31/19 12:37 74 20 03/31/19 10:54 36.8 C 87 19 124/82 BP Pulse Ox 03/31/19 17:22 98 03/31/19 17:06 98 03/31/19 15:04 136/95 98 03/31/19 12:37 126/84 99 03/31/19 10:54 100 Supervising Physician Co-Signing Physician Notes I have seen and examined the patient and have discussed the case with the provider above. I agree with the assessment and plan as stated with the following exceptions. Ms. Martines is a 58-year-old female with a 12-year history of colon cancer that is metastatic. Her last chemo was 02/21/2019 and she was on leucovorin, 5-FU, oxaliplatin, Panitumumab. As a result of increased lymphadenopathy seen on recent CT scan 2 weeks ago, she has switched to regorafenib which she has not instead started. She had reported dysuria, urinary urgency and hesitancy and some chills in the last couple of days. This morning she was unable to urinate and had some lower abdominal pressure. On arrival to the ER she was found to have acute urinary retention and feels much better after Bennett catheter placement. She otherwise denies fevers or flank pain and clinically does not appear to have pyelonephritis. CT of the abdomen and pelvis reveals some perinephric stranding however, there is lymphadenopathy abutting the ureters as well. In the setting of infectious symptoms, urinary retention is likely related to UTI. Electrolyte abnormalities including hypomagnesemia, hypokalemia are likely secondary to a combination of recent chemotherapy, questionable increased GI output/diarrhea and postobstructive diuresis. Physical exam reveals 2+ pitting edema bilaterally to the thighs with inguinal lymphadenopathy on the right. Abdomen is soft and nontender without distention. Lungs are clear to auscultation. Cardiac auscultation reveals S1/S2 heard with no evidence of murmurs, gallops, rubs. There is no JVD present. She is mentating normally and is in no acute distress. Skin exam reveals discoloration in the form of a daniel that is generalized. Skin is otherwise warm and dry. There is no CVA tenderness bilaterally. Plan includes correction of electrolytes as above and maintaining Bennett in place for minimum 48 hours while antibiotics continue to infuse. Continue Rocephin pending urine culture. DO Natanael
[2019-03-31] MEDS: ONDANSETRON INJ 2 MG/ML 2 ML VIAL IV PRN ×2 (18:54→23:59)
[2019-03-31] MEDS: MAGNESIUM OXIDE 400 MG TAB PO SCH (21:09)
[2019-03-31] MEDS: GABAPENTIN 300 MG CAP PO SCH (21:10)
[2019-03-31] MEDS: POTASSIUM CHLORIDE 20 MEQ TABCR PO SCH (21:10)
[2019-04-01] MEDS: LEVOTHYROXINE SODIUM 175 MCG TABLET PO SCH (05:43)
[2019-04-01] MEDS: HEPARIN 100 UNIT/ML 5ML FLUSH FLUSH PRN ×2 (06:09→15:55)
[2019-04-01 06:38] LABS: Hematocrit (blood only) 22.1 % (37-47); Mean Corpuscular Hgb Conc 31.7 g/dL (32-36); Mean Corpuscular Volume 93.6 fL (80-100); Mean Platelet Volume 9.4 fL (7.4-10.4); Platelet Count 217 K/uL (130-400); RDW Coefficient of Variation 22.3 % (11.5-14.5); RDW Standard Deviation 76.3 fL (36.4-46.3); Red Blood Count 2.36 M/uL (4.2-5.4)
[2019-04-01 07:33] LABS: BUN Creatinine Ratio 22.1 (10-20); Calcium 7.3 mg/dl (8.5-10.1); Creatinine Clr Calc Pharmacy 180.2 ml/min; Est GFR (African American) 130.1; Est GFR (Non-African American) 112.3; Magnesium 1.8 mg/dl (1.8-2.4); Phosphorus 2.5 mg/dl (2.5-4.9); Potassium 3.3 mmol/L (3.5-5.1)
[2019-04-01 07:51] LABS: Hematocrit (blood only) 22.5 % (37-47); Hemoglobin 7.2 g/dL (12.0-16.0)
[2019-04-01] MEDS: GABAPENTIN 300 MG CAP PO SCH ×2 (08:37→20:40)
[2019-04-01] MEDS: POTASSIUM CHLORIDE 20 MEQ TABCR PO SCH ×2 (08:37→20:39)
[2019-04-01] MEDS: FUROSEMIDE 20 MG TAB PO SCH (08:38)
[2019-04-01] MEDS: ENOXAPARIN INJ 40 MG/0.4 ML SYR SQ SCH ×2 (08:38→08:42)
[2019-04-01] MEDS: MAGNESIUM OXIDE 400 MG TAB PO SCH ×2 (08:38→20:40)
--- NOTE | 2019-04-01 09:40 | Hospitalist Progress Note ---
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 Reported chills In ER pt afebrile, vitals stable No leukocytosis. UA: 1+ protein, 1+ leuk esterase, 5-10 WBC, 20-30 epithelial, No bacteria CT ABD/PELVIS: The bladder is markedly distended but otherwise grossly unremarkable. Mild bilateral hydronephrosis. This is new from 01/24/2018, and may be related to the markedly distended bladder. The ureters are abutted by bulky retroperitoneal lymphadenopathy but not clearly encased. Asymmetric left-sided perinephric stranding. -Pt with No CVA tenderness on exam. -In ER pt was given Rocephin -Bennett placed in ER and has drained almost 1L. Pt with improved symptom relief -Rocephin -Lasix will be held today secondary to anticipated dehydration from urinary retention, reassess tomorrow (3) Hypokalemia: -Replace and monitor (4) Hypothyroidism: HRT (5) Metastatic colon cancer in female: Recent Chemo, Colostomy Bag x 12 years (6) Anemia: Recent Chemo (7) Hypomagnesemia: Monitor DVT Prophylaxis -Lovenox SQ Full Code as per discussion with pt Follows with Dr Diogenes Garcia for routine care Labs Checked ROS-No Headache, No Visual Changes, No Nausea, No Vomiting, No Fever, No Chills, No Neck Pain or Stiffness, No Chest Pain, No Palpitations, No SOB, No MO, No Cough, No Sputum, No Wheezing, No Abdominal Pain, No Diarrhea, No Hematemesis, No Hemoptysis, No Unexpected Weight Loss, No Flank pain, No Melena, No Hematochezia, No Frequency, No Urgency, No Burning, No Hematuria, No Rashes, No Diaphoresis. Appetite is Normal Physical Exam Gen-AAO x 3, NAD, Afebrile Head-NCAT, EOMI, PERRLA, Anicteric Sclera, No Posterior Pharyngeal Erythema Neck-Supple, No JVD, No Thyromegaly, No Masses, No LAD, No Bruits Lungs-Clear to Auscultation Bilaterally, No Rales, No Rhonchi, No Wheezing, No Crepitus Chest-No S4, +S1, +S2, No S3, No Murmurs, No Rubs, No Gallops, No Ectopy Abdomen-Soft, Colostomy, Bowel Sounds Present, Non Tender, Non Distended, No Hepatomegaly, No Splenomegaly, No Palpable Masses, No Rebound, No Rigidity, No Guarding Musculoskeletal-Full Range of Motion Bilaterally, No CVAT Extremities-No Cyanosis, No Clubbing, No Edema Nuero-Cranial Nerves II-XII grossly intact, Motor WNL, DTRs WNL, Strength WNL, Non Focal Psych-Normal Mood Results & Data Vital Signs (Past 12 Hours) Vital Signs Temp Pulse Pulse Resp BP BP Pulse Ox 04/01/19 07:36 80 04/01/19 07:24 36.8 C 92 H 18 105/65 94 04/01/19 03:18 36.3 C L 84 15 101/64 99 03/31/19 23:01 36.8 C 74 18 101/66 100 Current Diagnoses Hypomagnesemia (03/31/19) Hypokalemia (03/31/19) Urinary tract infection, site not specified (03/31/19) Retention of urine, unspecified (03/31/19) Allergies morphine Adverse Reaction (Intermediate, Verified 03/31/19 12:54) GI SYMPTOMS, CAUSES Nausea and vomitting Height/Weight/Isolation Height 5 ft 8 in Weight 99.7 kg Chemistry 03/31/19 04/01/19 12:45 06:09 Sodium 137 138 Potassium 2.7 L 3.3 L D Chloride 97 L 103 Carbon Dioxide 30 31 Anion Gap 10.0 4.0 BUN 11 9 Creatinine 0.48 L 0.41 L Glucose 91 85 Urinalysis 03/31/19 11:28 Urine Color Yellow Urine Appearance Clear Urine pH 6.0 Ur Specific [place] 1.017 Urine Protein 1+ H Urine Glucose (UA) Negative Urine Ketones Negative Urine Blood Negative Urine Nitrite Negative Urine Bilirubin Negative Microbiology 03/31/19 13:05 Blood Aerobic Blood Culture - Pending 03/31/19 13:05 Blood Anaerobic Blood Culture - Pending 03/31/19 12:10 Blood Aerobic Blood Culture - Pending 03/31/19 12:10 Blood Anaerobic Blood Culture - Pending
[2019-04-01] MEDS: POTASSIUM CHLORIDE / WTR 10 MEQ/100 ML PLCT IV SCH ×4 (10:15→13:52)
[2019-04-01] MEDS ORDERED: cefTRIAXone SODIUM 2,000 MG in DEXTROSE 5% 50 ML IV SCH (15:00)
[2019-04-01] MEDS ORDERED: cefTRIAXone SODIUM 1,000 MG in DEXTROSE 5% 50 ML IV SCH (15:00)
[2019-04-01] MEDS: ONDANSETRON INJ 2 MG/ML 2 ML VIAL IV PRN (16:13)
[2019-04-01] MEDS: OXYCODONE HCL IR 5 MG TAB (IMMEDIATE RELEASE) PO PRN (19:27)
[2019-04-02] MEDS: OXYCODONE HCL IR 5 MG TAB (IMMEDIATE RELEASE) PO PRN (01:45)
[2019-04-02] MEDS: LEVOTHYROXINE SODIUM 175 MCG TABLET PO SCH (05:05)
[2019-04-02] MEDS: HEPARIN 100 UNIT/ML 5ML FLUSH FLUSH PRN ×2 (05:31→12:34)
[2019-04-02 06:39] LABS: Basophils # (auto) 0.02 K/uL (0-0.2); Basophils % (auto) 0.3 %; Eosinophils # (auto) 0.08 K/uL (0-0.5); Eosinophils % (auto) 1.3 %; Hematocrit (blood only) 22.8 % (37-47); Hemoglobin 7.2 g/dL (12.0-16.0); Immature Granulocytes # (auto) 0.03 K/uL (0.00-0.02); Immature Granulocytes % (auto) 0.5 %; Lymphocytes # (auto) 0.86 K/uL (1.2-3.4); Lymphocytes % (auto) 13.6 %; Mean Corpuscular Volume 94.6 fL (80-100); Mean Platelet Volume 9.2 fL (7.4-10.4); Monocytes # (auto) 1.18 K/uL (0.11-0.59); Monocytes % (auto) 18.6 %; Neutrophils # (auto) 4.16 K/uL (1.4-6.5); Neutrophils % (auto) 65.7 %; Platelet Count 224 K/uL (130-400); RDW Standard Deviation 76.1 fL (36.4-46.3); Red Blood Count 2.41 M/uL (4.2-5.4); White Blood Count 6.33 K/uL (4.8-10.8)
[2019-04-02 06:43] LABS: BUN Creatinine Ratio 18.5 (10-20); Calcium 7.5 mg/dl (8.5-10.1); Creatinine Clr Calc Pharmacy 175.9 ml/min; Est GFR (African American) 129.1; Est GFR (Non-African American) 111.4; Potassium 3.7 mmol/L (3.5-5.1)
[2019-04-02 06:44] LABS: Mean Corpuscular Hgb Conc 31.6 g/dL (32-36)
[2019-04-02 07:03] LABS: Anisocytosis Present
--- NOTE | 2019-04-02 07:38 | Discharge Summary ---
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 Pt reports noticing decreased urine output yesterday evening and today unable to fully empty bladder. States had some dysuria and having suprapubic pressure. Denies other abdominal pain, flank pain or back pain. Denies any noted hematuria past couple of days. Reports chills a couple of days ago with temp 99F. She reports a couple of weeks ago had hematuria, lower abdominal pain and was dx with kidney stones which she reports passing on her own. Last week reports nasal congestion, bilateral ear pressure which has since resolved. Pt states has intermittent increased loose stool to colostomy bag and noticed increased watery output a couple of days ago. States past 2 days with normal stool consistency and amount. Reports intermittent bleeding of stoma without bleeding recently. States intermittent edema of bilateral lower legs with right usually bigger than left which she relates to chemo and lymphadenopathy. States increased edema past couple of days, and hasn't been taking her lasix secondary to urinary symptoms. Denies extremity pain or erythema. Last chemo 02/21/19. Last iron infusion 03/09/19. Has not started Stivarga yet. Denies diaphoresis, N/V/D/C, SHEEHAN, dizziness, syncope, vision changes, neck pain, CP, SOB, orthopnea, palpitations, cough, weakness. Admission Exam Per Admitting Provider General: chronic ill appearing, no acute distress, obese Head: normocephalic, atraumatic Eyes: PERRL, EOM's intact, conjunctiva non-injected, anicteric ENT: normal inspection external ears, nose, mucous membranes moist Neck: supple, trachea midline Lungs: clear, no respiratory distress, no wheezing/rhonchi/rales; chest: +port to left upper chest without surrounding edema or erythema CV: RRR, no murmur Abd: hypoactive BS, +colostomy bag to left lower abdomen, +inguinal lymphadenopathy right, soft, some mild suprapubic pressure to palpation, otherwise abdomen non-tender. Ext: no cyanosis or erythema, no calf tenderness, BLE: 2+edema Neuro: A&O x 3, no focal deficits noted, normal affect Skin: warm, dry; hyperpigmentation skin Principal Diagnosis Urine Retention UTI Lymphedema Colon CA-Metastatic Rectal [place] CA Hypothyroidism Anemia Discharge Exam Physical Exam Gen-AAO x 3, NAD, Afebrile Head-NCAT, EOMI, PERRLA, Anicteric Sclera, No Posterior Pharyngeal Erythema Neck-Supple, No JVD, No Thyromegaly, No Masses, No LAD, No Bruits Lungs-Clear to Auscultation Bilaterally, No Rales, No Rhonchi, No Wheezing, No Crepitus Chest-No S4, +S1, +S2, No S3, No Murmurs, No Rubs, No Gallops, No Ectopy Abdomen-Soft, Colostomy, Bowel Sounds Present, Non Tender, Non Distended, No Hepatomegaly, No Splenomegaly, No Palpable Masses, No Rebound, No Rigidity, No Guarding Musculoskeletal-Full Range of Motion Bilaterally, No CVAT Extremities-No Cyanosis, No Clubbing, No Edema Nuero-Cranial Nerves II-XII grossly intact, Motor WNL, DTRs WNL, Strength WNL, Non Focal Psych-Normal Mood Discharge Data Allergies Allergy/AdvReac Type Severity Reaction Status Date / Time morphine AdvReac Intermediate GI Verified 03/31/19 12:54 SYMPTOMS, CAUSES Nausea and vomitting Consultations 03/31/19 15:41 ED Decision to Admit Stat 03/31/19 17:23 Consult Case Management - Discharge Planning Routine Ordered Studies 03/31/19 11:16 CT abd pelvis IV con only Stat US venous doppler LE BI Stat Current Diagnoses Malignant neoplasm of colon, unspecified (03/31/19) Anemia, unspecified (03/31/19) Hypothyroidism, unspecified (03/31/19) Hypomagnesemia (03/31/19) Hypokalemia (03/31/19) Urinary tract infection, site not specified (03/31/19) Retention of urine, unspecified (03/31/19) Allergies morphine Adverse Reaction (Intermediate, Verified 03/31/19 12:54) GI SYMPTOMS, CAUSES Nausea and vomitting Height/Weight/Isolation Height 5 ft 8 in Weight 101.3 kg Chemistry 03/31/19 04/01/19 04/02/19 12:45 06:09 05:30 Sodium 137 138 137 Potassium 2.7 L 3.3 L D 3.7 Chloride 97 L 103 100 Carbon Dioxide 30 31 30 Anion Gap 10.0 4.0 6.0 BUN 11 9 8 Creatinine 0.48 L 0.41 L 0.42 L Glucose 91 85 82 Urinalysis 03/31/19 11:28 Urine Color Yellow Urine Appearance Clear Urine pH 6.0 Ur Specific [place] 1.017 Urine Protein 1+ H Urine Glucose (UA) Negative Urine Ketones Negative Urine Blood Negative Urine Nitrite Negative Urine Bilirubin Negative Microbiology 03/31/19 13:05 Blood Aerobic Blood Culture - Preliminary No growth in Aerobic bottle after 24 hours. 03/31/19 13:05 Blood Anaerobic Blood Culture - Preliminary No growth in Anaerobic bottle after 24 hours. 03/31/19 12:10 Blood Aerobic Blood Culture - Preliminary No growth in Aerobic bottle after 24 hours. 03/31/19 12:10 Blood Anaerobic Blood Culture - Preliminary No growth in Anaerobic bottle after 24 hours. 04/01/19 10:00 Urine,Indwelling Cath Urine Culture - Pending Hospital Course (1) Urinary retention: Bennett Placed, remove today and DC if she can void (2) UTI (urinary tract infection): Pt presented with urinary hesitancy, dysuria, and urgency starting 1 [place] [employer] with urinary retention and suprapubic pressure. Reported chills In ER pt afebrile, vitals stable No leukocytosis. UA: 1+ protein, 1+ leuk esterase, 5-10 WBC, 20-30 epithelial, No bacteria CT ABD/PELVIS: The bladder is markedly distended but otherwise grossly unremarkable. Mild bilateral hydronephrosis. This is new from 01/24/2018, and may be related to the markedly distended bladder. The ureters are abutted by bulky retroperitoneal lymphadenopathy but not clearly encased. Asymmetric left-sided perinephric stranding. -Pt with No CVA tenderness on exam. -In ER pt was given Rocephin -Bennett placed in ER and has drained almost 1L. Pt with improved symptom relief -Rocephin (3) Hypokalemia: -Replaced (4) Hypothyroidism: HRT (5) Metastatic colon cancer in female: Recent Chemo, Colostomy Bag x 12 years (6) Anemia: Recent Chemo (7) Hypomagnesemia: Monitor DVT Prophylaxis -Lovenox SQ Full Code as per discussion with pt Follows with Dr Diogenes Garcia for routine care Labs Checked Total Time Total Time Spent Total Time Spent (In Minutes): 40 mins Total Time Includes: Examination of the Patient, Discharge Planning, Medication Reconciliation and Communication With Other Providers Discharge Plan Discharge Items Patient Disposition: Home - Self-Care Reason For Visit: ACUTE URINARY RETENTION/SEVERE HYPOMAGNESEMIA Discharge Diagnosis: Urine Retention UTI Lymphedema Colon CA-Metastatic Rectal Ad[place] CA Hypothyroidism Condition: Good Discharge Goals: Improve disease control Activity: Resume your previous activity Lifting: Gradually increase as tolerated Bathing: No limitations Sexual Activity: When tolerated Exercise/Sports: Gradually increase as tolerated Driving/Machine Use: No limitations Weightbearing: Left weightbearing Non-emergency contact: Primary Care Provider and Oncologist Call non-emergency contact if: you have any medication questions, your symptoms worsen and you have a fever Follow-up/Referrals: Saman Maxwell MD [Primary Care Provider] - (f/u in 1-2 weeks) Diet: Regular and Heart Healthy Addtl Provider Instructions: Routine f/u Follow CBC monthly Prescriptions: New cefuroxime axetil 500 mg tablet 500 mg PO BID 7 Days Qty: 14 RF: 0 Continued gabapentin 300 mg capsule 300 mg PO BID PRN (Reason: Pain) RF: 0 furosemide 20 mg tablet 20 mg PO DAILY PRN (Reason: Fluid Retention) RF: 0 levothyroxine 175 mcg Tablet 175 mcg PO DAILY RF: 0 cholecalciferol (vitamin D3) 5,000 unit Tablet 5,000 unit PO DAILY RF: 0 Stivarga 40 mg Tablet 120 mg PO UD RF: 0 magnesium oxide 240 mg magnesium Powder In Packet 800 mg PO BID RF: 0 potassium chloride 20 mEq Tablet Extended Release 20 meq PO BID RF: 0 Stand-Alone Forms: [facility] Discharge Orders: Discharge Order (Routine); Ordered 04/02/19 Ordered By: Silas Aguilar Admission Data Admit Date/Time: 03/31/19 16:15 Attending Provider: Silas Aguilar Admit Provider: Marli Santoyo Primary Care Provider: Saman Maxwell Other Providers: Marli Santoyo Service: Telemetry Medical
[2019-04-02] MEDS: MAGNESIUM OXIDE 400 MG TAB PO SCH (08:07)
[2019-04-02] MEDS: FUROSEMIDE 20 MG TAB PO SCH (08:07)
[2019-04-02] MEDS: POTASSIUM CHLORIDE 20 MEQ TABCR PO SCH (08:08)
[2019-04-02] MEDS: GABAPENTIN 300 MG CAP PO SCH (08:08)
[2019-04-02] MEDS: ENOXAPARIN INJ 40 MG/0.4 ML SYR SQ SCH (08:08)
== END 2019-04-02 14:11 | disposition home or self-care (01) | DRG 690 ==
LOC: ED 10:37 → 2N 16:15

== ENCOUNTER 2019-06-09 20:11 | Inpatient (IN) ==
--- NOTE | 2019-06-09 20:42 | Emergency Department Note ---
Entered by Petty Hodges acting as a scribe for History of Present Illness General Chief complaint: Shortness of Breath/Dyspnea Stated complaint: SOB Time Seen by Provider: 06/09/19 20:23 Source: patient Mode of arrival: ambulatory Limitations: no limitations History of Present Illness Onset (ago): day(s) 3 Location: chest Radiation: non-radiation Pain Consistency: + constant Relieved By: + none Exacerbated By: + movement (exertion) Associated symptoms: + other (+swelling in legs) Treatments prior to arrival: none The patient is a 58 year old female who presents to the ED with complaints of shortness of breath. She states her symptoms are worsened by movement and exertion, stating "if I walk to the bathroom, I'm exhausted". She admits to increased swelling in her legs and states "I feel bloated". She denies any history of PE or DVT. She has a history of stage 4 colon cancer. She has been on oral chemotherapy for the past 5 weeks and states she does one week on, then one week off. This is her off week. Home Medications Home Medications Medication Instructions Recorded Confirmed Type Stivarga 120 mg PO UD 03/31/19 06/09/19 History cholecalciferol (vitamin D3) 5,000 unit PO DAILY 03/31/19 06/09/19 History furosemide 20 mg PO DAILY PRN 03/31/19 06/09/19 History gabapentin 300 mg PO TID 03/31/19 06/09/19 History levothyroxine 175 mcg PO DAILY 03/31/19 06/09/19 History magnesium oxide 800 mg PO BID 03/31/19 06/09/19 History potassium chloride [Klor-Con M10] 10 meq PO BID 06/09/19 06/10/19 History Allergies Allergy/AdvReac Type Severity Reaction Status Date / Time morphine AdvReac Intermediate GI Verified 06/09/19 20:53 SYMPTOMS, CAUSES Nausea and vomitting Past Med/Surg History Medical History Lymphedema of lower extremity (Chronic) Hypothyroidism (Chronic) 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) Metastatic colon cancer in female (Chronic) HTN (hypertension) (Chronic) Rectal cancer (Chronic) 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 and A total of 10 systems reviewed and were otherwise negative Physical Exam Vital Signs Vital Signs - 24 hr 06/09/19 20:19 06/09/19 20:35 06/09/19 21:00 Temperature 36.9 C Temperature Source Oral Sepsis Recent Fever Within 48 Hours No Sepsis Action Taken by Nursing No Action Required Pulse Rate 89 108 H Pulse Rate from SpO2 Sensor 108 H Respiratory Rate 18 15 Respiratory Effort / Characteristics Non-Labored Non-Labored Spontaneous Respiratory Depth Normal Normal Respiratory Pattern Regular Blood Pressure 115/72 126/72 Blood Pressure Mean 86 90 Pulse Oximetry 97 99 98 Oxygen Delivery Method Room Air Room Air Room Air 06/09/19 21:03 06/09/19 21:30 06/09/19 22:00 Temperature Temperature Source Sepsis Recent Fever Within 48 Hours Sepsis Action Taken by Nursing Pulse Rate 107 H 103 H 108 H Pulse Rate from SpO2 Sensor 114 H 105 H 108 H Respiratory Rate 16 16 21 Respiratory Effort / Characteristics Respiratory Depth Respiratory Pattern Blood Pressure 121/78 Blood Pressure Mean 92 Pulse Oximetry 92 98 99 Oxygen Delivery Method Room Air Room Air Room Air 06/09/19 23:04 06/09/19 23:30 Temperature Temperature Source Sepsis Recent Fever Within 48 Hours Sepsis Action Taken by Nursing Pulse Rate 107 H 104 H Pulse Rate from SpO2 Sensor 104 H Respiratory Rate 22 24 Respiratory Effort / Characteristics Respiratory Depth Respiratory Pattern Blood Pressure Blood Pressure Mean Pulse Oximetry 98 99 Oxygen Delivery Method Room Air GENERAL: Patient is awake alert in no acute distress patient is resting comfortably and showing no signs of anxiety EYES: The conjunctivae are clear. The pupils are round and reactive. EARS, NOSE, MOUTH AND THROAT: The nose is without any evidence of any deformity. Mucous membranes are moist tongue is midline NECK: The neck is nontender and supple. RESPIRATORY: Diminished breath sounds are noted at both bases. There are min imal rales at both bases. CARDIOVASCULAR: Tachycardic rate but regular rhythm was noted. No definite murmur was noted. GASTROINTESTINAL: The abdomen is mildly distended but soft. There is no tendern ess guarding rigidity. MUSCULOSKELETAL/EXTREMITIES: There is no evidence of gross deformity full range of motion is noted in the hips and shoulders SKIN: Significant pedal edema was noted bilaterally. There is no signs of cellulitis. NEUROLOGIC: Patient is awake alert and oriented x3. Course 2025: The patient was evaluated in room C8 and a complete history and physical were performed. 2300: I discussed the case with Dr. Higgins. He has agreed to evaluate the patient in the emergency department for further management disposition. Administered Medications Gabapentin (Neurontin) 300 mg PO TID BERTRAM Stop: 07/10/19 08:59 Last Admin: 06/10/19 15:04 Dose: Not Given Documented by: [id number] Admin: 06/10/19 08:16 Dose: 300 mg Documented by: [id number] Heparin Sodium (Porcine) (Heparin Sodium (Porcine)) 5,000 units SQ Q12 BERTRAM Stop: 07/10/19 08:59 Last Admin: 06/10/19 08:16 Dose: Not Given Documented by: [id number] Heparin Sodium (Porcine) (Heparin Sod 100 Unit/Ml Flush) 5 ml FLUSH PRN PRN PRN Reason: Flush Stop: 07/10/19 05:29 Last Admin: 06/10/19 06:15 Dose: 5 ml Documented by: [id number] Levothyroxine Sodium (Synthroid) 175 mcg PO DAILYBB BERTRAM Stop: 07/10/19 06:29 Last Admin: 06/10/19 06:22 Dose: 175 mcg Documented by: [id number] Magnesium Oxide (Mag-Ox) 800 mg PO BID BERTRAM Stop: 07/10/19 08:59 Last Admin: 06/10/19 08:14 Dose: 800 mg Documented by: [id number] Potassium Chloride (Klor-Con M10) 10 meq PO BID BERTRAM Stop: 07/10/19 08:59 Last Admin: 06/10/19 08:15 Dose: 10 meq Documented by: [id number] Vitamin D (Vitamin D3) 5,000 units PO DAILY BERTRAM Stop: 07/10/19 08:59 Last Admin: 06/10/19 08:16 Dose: 5,000 units Documented by: [id number] Discontinued Medications Ceftriaxone Sodium (Rocephin) Confirm Administered Dose 1,000 mg IV .STK-MED ONE Stop: 06/09/19 21:41 Last Admin: 06/09/19 21:50 Dose: Not Given Documented by: [id number] Ceftriaxone Sodium (Rocephin) 1,000 mg in 50 mls @ 100 mls/hr IV NOW STA Stop: 06/09/19 22:07 Last Infusion: 06/09/19 22:42 Dose: 0 mls/hr Documented by: [id number] Admin: 06/09/19 21:50 Dose: 100 mls/hr Documented by: [id number] Magnesium Sulfate/Dextrose (Magnesium Sulfate / D5w) 1 gm in 100 mls @ 100 mls/hr IV ONE ONE Stop: 06/10/19 02:17 Last Infusion: 06/10/19 03:56 Dose: 0 mls/hr Documented by: [id number] Admin: 06/10/19 02:15 Dose: 100 mls/hr Documented by: [id number] Magnesium Oxide (Mag-Ox) 400 mg PO ONE ONE Stop: 06/10/19 21:53 Last Admin: 06/09/19 22:38 Dose: Not Given Documented by: [id number] Magnesium Oxide (Mag-Ox) Confirm Administered Dose 400 mg .ROUTE .STK-MED ONE Stop: 06/09/19 22:13 Last Admin: 06/09/19 22:38 Dose: 400 mg Documented by: [id number] Miscellaneous (Patient's Height And/Or Weight Needed) 1 ea N/A Q30M BERTRAM Stop: 07/10/19 01:29 Last Admin: 06/10/19 01:58 Dose: Not Given Documented by: [id number] Perflutren Lipid Microsphere (Definity) 2 ml IV ONCE ONE Stop: 06/10/19 10:01 Last Admin: 06/10/19 10:00 Dose: 2 ml Documented by: [id number] Potassium Chloride (Klor-Con M10) 20 meq PO NOW STA Stop: 06/09/19 22:04 Last Admin: 06/09/19 22:37 Dose: 20 meq Documented by: [id number] Potassium Chloride (Klor-Con M10) 30 meq PO NOW STA Stop: 06/10/19 01:19 Last Admin: 06/10/19 02:22 Dose: 30 meq Documented by: [id number] Potassium Chloride (Klor-Con M20) 40 meq PO NOW STA Stop: 06/10/19 11:04 Last Admin: 06/10/19 11:42 Dose: 40 meq Documented by: [id number] Medical Decision Making Differential Diagnosis Differential diagnoses includes but is not limited to pneumonia, bronchitis, COPD/Asthma exacerbation, pneumothorax, pulmonary embolism, congestive heart failure, acute coronary syndrome Medical Records Attestation: I reviewed the patient's medical records. Home Medications Current Medication List: was personally reviewed by wy Laboratory Data Attestation: I reviewed the patient's lab results. Result diagrams: 06/10/19 06:16 06/10/19 06:16 Lab Results 06/09/19 06/09/19 06/09/19 Range/Units 20:56 20:56 20:56 WBC 9.51 (4.8-10.8) K/uL RBC 3.50 L (4.2-5.4) M/uL Hgb 9.4 L (12.0-16.0) g/dL Hct 28.8 L (37-47) % MCV 82.3 (80-100) fL MCH 26.9 (25-34) pg MCHC 32.6 (32-36) g/dL RDW Std Deviation 62.4 H (36.4-46.3) fL RDW Coeff of Lluvia 20.7 H (11.5-14.5) % Plt Count 183 (130-400) K/uL MPV 8.6 (7.4-10.4) fL Immature Gran % (Auto) 0.6 % Neut % (Auto) 78.9 % Lymph % (Auto) 6.4 % Bacon % (Auto) 13.9 % Eos % (Auto) 0.1 % Baso % (Auto) 0.1 % Immature Gran # (Auto) 0.06 H (0.00-0.02) K/uL Neut # (Auto) 7.50 H (1.4-6.5) K/uL Lymph # (Auto) 0.61 L (1.2-3.4) K/uL Bacon # (Auto) 1.32 H (0.11-0.59) K/uL Eos # (Auto) 0.01 (0-0.5) K/uL Baso # (Auto) 0.01 (0-0.2) K/uL Anisocytosis Present PT 13.1 H (9.0-12.0) Seconds INR 1.3 H (0.9-1.1) APTT 43.1 H (21.0-31.0) Seconds PTT Ratio 1.6 Sodium 131 L (136-145) mmol/L Potassium 3.0 L (3.5-5.1) mmol/L Chloride 96 L (98-107) mmol/L Carbon Dioxide 25 (21-32) mmol/L Anion Gap 9.0 (3-11) BUN 12 (7-18) mg/dl Creatinine 0.80 (0.6-1.2) mg/dl Est Cr Clr Drug Dosing Not Reportable Est GFR ( Amer) 92.9 Est GFR (Non-Af Amer) 80.1 BUN/Creatinine Ratio 15.1 (10-20) Glucose 83 (70-99) mg/dl Calcium 7.2 L (8.5-10.1) mg/dl Magnesium 1.6 L (1.8-2.4) mg/dl Total Bilirubin 1.0 (0.2-1) mg/dl AST 84 H (15-37) U/L ALT 30 (12-78) U/L Alkaline Phosphatase 402 H (45-117) U/L Troponin I < 0.015 (0-0.045) ng/ml NT-Pro-B Natriuret Pep 329 (0-900) pg/ml Total Protein 7.7 (6.4-8.2) gm/dl Albumin 1.2 L (3.4-5.0) gm/dl Globulin 6.5 H (2.5-4.0) gm/dl Albumin/Globulin Ratio 0.2 L (0.9-2) Urine Color Urine Appearance (Clear) Urine pH (4.5-7.5) Ur Specific [place] (1.000-1.030) Urine Protein (Negative) Urine Glucose (UA) (Negative) Urine Ketones (Negative) Urine Blood (Negative) Urine Nitrite (Negative) Urine Bilirubin (Negative) Urine Urobilinogen (Negative) Ur Leukocyte Esterase (Negative) Urine WBC (Auto) (0-5) /hpf Urine RBC (Auto) (0-4) /hpf U Hyaline Cast (Auto) (0-5) /lpf U Epithel Cells (Auto) (0-5) /lpf Urine Bacteria (Auto) (Negative) WBC Casts (0) /lpf Urine Yeast 06/09/19 Range/Units 20:56 WBC (4.8-10.8) K/uL RBC (4.2-5.4) M/uL Hgb (12.0-16.0) g/dL Hct (37-47) % MCV (80-100) fL MCH (25-34) pg MCHC (32-36) g/dL RDW Std Deviation (36.4-46.3) fL RDW Coeff of Lluvia (11.5-14.5) % Plt Count (130-400) K/uL MPV (7.4-10.4) fL Immature Gran % (Auto) % Neut % (Auto) % Lymph % (Auto) % Bacon % (Auto) % Eos % (Auto) % Baso % (Auto) % Immature Gran # (Auto) (0.00-0.02) K/uL Neut # (Auto) (1.4-6.5) K/uL Lymph # (Auto) (1.2-3.4) K/uL Bacon # (Auto) (0.11-0.59) K/uL Eos # (Auto) (0-0.5) K/uL Baso # (Auto) (0-0.2) K/uL Anisocytosis PT (9.0-12.0) Seconds INR (0.9-1.1) APTT (21.0-31.0) Seconds PTT Ratio Sodium (136-145) mmol/L Potassium (3.5-5.1) mmol/L Chloride (98-107) mmol/L Carbon Dioxide (21-32) mmol/L Anion Gap (3-11) BUN (7-18) mg/dl Creatinine (0.6-1.2) mg/dl Est Cr Clr Drug Dosing Est GFR ( Amer) Est GFR (Non-Af Amer) BUN/Creatinine Ratio (10-20) Glucose (70-99) mg/dl Calcium (8.5-10.1) mg/dl Magnesium (1.8-2.4) mg/dl Total Bilirubin (0.2-1) mg/dl AST (15-37) U/L ALT (12-78) U/L Alkaline Phosphatase (45-117) U/L Troponin I (0-0.045) ng/ml NT-Pro-B Natriuret Pep (0-900) pg/ml Total Protein (6.4-8.2) gm/dl Albumin (3.4-5.0) gm/dl Globulin (2.5-4.0) gm/dl Albumin/Globulin Ratio (0.9-2) Urine Color Yellow Urine Appearance Cloudy A (Clear) Urine pH 5.5 (4.5-7.5) Ur Specific [place] 1.013 (1.000-1.030) Urine Protein Negative (Negative) Urine Glucose (UA) Negative (Negative) Urine Ketones Negative (Negative) Urine Blood 2+ H (Negative) Urine Nitrite Positive A (Negative) Urine Bilirubin Negative (Negative) Urine Urobilinogen Negative (Negative) Ur Leukocyte Esterase 3+ H (Negative) Urine WBC (Auto) >30 H (0-5) /hpf Urine RBC (Auto) 5-10 H (0-4) /hpf U Hyaline Cast (Auto) 1-5 (0-5) /lpf U Epithel Cells (Auto) 10-20 H (0-5) /lpf Urine Bacteria (Auto) 4+ H (Negative) WBC Casts 1-5 H (0) /lpf Urine Yeast Not Reportable ECG Data Attestation: I personally reviewed and interpreted this ECG as follows: Indication: SOB/dyspnea Rate (beats per minute): 108 Rhythm: sinus tachycardia Findings: + RBBB (Incomplete RBBB); no ectopy Comparison ECG Date: from (04/25/18) Change: no significant change MDM Narrative The patient is a 58-year-old female who presented to the emergency department fo r an evaluation of shortness of breath. The patient was experience some dyspnea on exertion. She does have a history of metastatic cancer to her lungs. I was concerned given her history that this could represent pneumonia versus a pulmonary embolism. Laboratory and radiographic studies were obtained. At rest the patient was feeling much better but with any exertion she did develop severe dyspnea. Her CAT scan reveals cavitary nodules which appear to be at the site of metastatic disease. I was very concerned for the patient and [facility] agreed to evaluate the patient in the emergency department for further management disposition. Impression & Plan Shortness of breath, UTI (urinary tract infection), Hypokalemia, Hypomagnesemia, Anemia, Hyponatremia, Metastatic colon cancer in female Discharge Plan Visit Data *Final* Discharge Date/Time: 06/10/19 00:39 Chief Complaint: Shortness of Breath/Dyspnea Stated Complaint: SOB ED Provider: Mauricio Cali Discharge Problem: Shortness of breath, UTI (urinary tract infection), Hypokalemia, Hypomagnesemia, Anemia, Hyponatremia, Metastatic colon cancer in female Patient Disposition: Admitted As Inpatient Discharge Instructions Interventions: ED Discharge Assessment Last Done: 06/10/19 00:39 Discharge Problem: UTI (urinary tract infection) Qualifiers: Urinary tract infection type: acute cystitis Hematuria presence: without hematuria Qualified Code(s): N30.00 - Acute cystitis without hematuria Anemia Qualifiers: Anemia type: unspecified type Qualified Code(s): D64.9 - Anemia, unspecified The scribe's documentation has been prepared under my direction and personally reviewed by me in its entirety. I confirm that the note above accurately reflects all work, treatment, procedures, and medical decision making performed by me.
[2019-06-09 21:07] LABS: Basophils # (auto) 0.01 K/uL (0-0.2); Basophils % (auto) 0.1 %; Eosinophils # (auto) 0.01 K/uL (0-0.5); Eosinophils % (auto) 0.1 %; Hematocrit (blood only) 28.8 % (37-47); Hemoglobin 9.4 g/dL (12.0-16.0); Immature Granulocytes # (auto) 0.06 K/uL (0.00-0.02); Immature Granulocytes % (auto) 0.6 %; Lymphocytes # (auto) 0.61 K/uL (1.2-3.4); Lymphocytes % (auto) 6.4 %; Mean Corpuscular Hgb Conc 32.6 g/dL (32-36); Mean Corpuscular Volume 82.3 fL (80-100); Mean Platelet Volume 8.6 fL (7.4-10.4); Monocytes # (auto) 1.32 K/uL (0.11-0.59); Monocytes % (auto) 13.9 %; Neutrophils % (auto) 78.9 %; Platelet Count 183 K/uL (130-400); RDW Coefficient of Variation 20.7 % (11.5-14.5); RDW Standard Deviation 62.4 fL (36.4-46.3); White Blood Count 9.51 K/uL (4.8-10.8)
[2019-06-09 21:16] LABS: Appearance Urine Cloudy (Clear); Bacteria Urine Automated 4+ (Negative); Bilirubin Urine Negative (Negative); Blood Urine 2+ (Negative); Color Urine Yellow; Glucose Urine UA Negative (Negative); Ketones Urine Negative (Negative); Leukocyte Esterase Urine 3+ (Negative); Nitrite Urine Positive (Negative); Protein Urine Negative (Negative); Specific Gravity Urine 1.013 (1.000-1.030); Urobilinogen Urine Negative (Negative); WBC Urine Automated >30 /hpf (0-5); pH Urine 5.5 (4.5-7.5)
[2019-06-09 21:23] LABS: INR 1.3 (0.9-1.1); Partial Thromboplastin Ratio 1.6; Partial Thromboplastin Time 43.1 Seconds (21.0-31.0); Prothrombin Time 13.1 Seconds (9.0-12.0)
[2019-06-09 21:29] LABS: Alanine Aminotransferase 30 U/L (12-78); Albumin Level 1.2 gm/dl (3.4-5.0); Aspartate Aminotransferase 84 U/L (15-37); BUN Creatinine Ratio 15.1 (10-20); Blood Urea Nitrogen 12 mg/dl (7-18); Calcium 7.2 mg/dl (8.5-10.1); Carbon Dioxide 25 mmol/L (21-32); Chloride 96 mmol/L (98-107); Est GFR (African American) 92.9; Est GFR (Non-African American) 80.1; Glucose 83 mg/dl (70-99); Magnesium 1.6 mg/dl (1.8-2.4); Sodium 131 mmol/L (136-145)
[2019-06-09 21:31] LABS: Anisocytosis Present
[2019-06-09 21:34] LABS: Albumin Globulin Ratio 0.2 (0.9-2); Alkaline Phosphatase 402 U/L (45-117); Globulin 6.5 gm/dl (2.5-4.0); NT Pro B Type Natriuretic Pept 329 pg/ml (0-900); Total Protein 7.7 gm/dl (6.4-8.2); Troponin I < 0.015 ng/ml (0-0.045)
[2019-06-09] MEDS ORDERED: cefTRIAXone SODIUM 1,000 MG/50 ML BAG IV STA (21:38)
--- NOTE | 2019-06-09 21:39 | XRay Report ---
XR chest 1V portable CLINICAL HISTORY: Dyspnea COMPARISON STUDY: 01/24/2018 FINDINGS: The cardiac and mediastinal contours remain stable. There is a left-sided A-Port catheter. Now evident are multiple bilateral pulmonary nodules. Metastatic disease is suspected. There is no lo bar consolidation. There are no large pleural effusions.[ IMPRESSION: 1. Interval development of multiple bilateral pulmonary nodules, a finding consistent with metastatic disease. 2. No evidence of lobar consolidation Electronically signed by: Neftali Horton M.D. 06/09/2019 9:38 PM
[2019-06-09] MEDS ORDERED: cefTRIAXone SODIUM 1000MG/50ML D5W IV ONE (21:40)
[2019-06-09] MEDS ORDERED: POTASSIUM CHLORIDE 10 MEQ TABCR PO STA (22:03)
[2019-06-09] MEDS ORDERED: MAGNESIUM OXIDE 400 MG TAB ONE (22:12)
[2019-06-09] MEDS ORDERED: OPTIRAY 320 125ml IV PRN (22:27)
--- NOTE | 2019-06-09 22:42 | CT Scan Report ---
CT ANGIOGRAM OF THE CHEST CLINICAL HISTORY: Shortness of breath. Chest pain. Possible acute pulmonary embolus. COMPARISON STUDY: December 11, 2014, chest x-ray dated 01/24/2018 TECHNIQUE: Following the IV administration of 119 mL of Optiray-320, CT angiogram of the thorax was p erformed from the thoracic inlet to the lung bases utilizing the pulmonary embolus protocol. Images a re reviewed in the axial, sagittal, and coronal planes. IV contrast was administered without complica tion. MIP imaging was performed. A dose lowering technique was utilized adhering to the principles o f ALARA. CT DOSE: 399.60 mGy.cm FINDINGS: The visualized portions of the upper abdomen reveal ascites, and multiple hepatic masses consistent w ith metastatic disease. There is bilateral hilar lymphadenopathy. There was no evidence of thoracic aortic dilatation. There were no pulmonary artery filling defects to indicate acute pulmonary embolism. There is a small left pleural effusion There are innumerable bilateral pulmonary nodules some of which are cavitating. The findings are most consistent with extensive metastatic disease. There is left lower lobe atelectasis. There is elevati on left hemidiaphragm. IMPRESSION: 1. No evidence of acute pulmonary embolism 2. Multiple bilateral pulmonary nodules, several which demonstrate cavitation. The findings are consi stent with extensive pulmonary metastasis 3. Pathologic bilateral hilar lymphadenopathy 4. Small left pleural effusion 5. Ascites 6. Multiple hepatic masses consistent with metastatic disease Electronically signed by: Neftali Horton M.D. 06/09/2019 10:41 PM
--- NOTE | 2019-06-10 01:07 | History and Physical Report ---
DATE OF ADMISSION: 06/09/2019 CHIEF COMPLAINT: Shortness of breath, weakness. HISTORY OF PRESENT ILLNESS: This is a 58-year-old female with past medical history significant for adenocarcinoma of the rectum, initial diagnosis in 2006, status post transanal resection followed by Xeloda and radiation treatment with local recurrent disease noted in 2008, status post APR with colostomy and then extensive recurrent disease noted in the pelvis, retroperitoneal lymph node region, status post resection at [facility]. She had received several chemotherapy treatments since 2006, in 04/2019 she was started on new chemo regorafenib, will be on it for 3 weeks and then one week off.It was held for blisters in hands. She also chronic bilateral lower extremity edema with lymphedema, follows with lymphedema specialist .Currently regorafenib again was restarted last month. She takes 3 weeks and 1 week off. Currently on off week. She also has a history of chemotherapy-induced neuropathy and elevated blood pressure situational. Currently, she has a history of liver metastasis and pulmonary metastasis and presents with shortness of breath . Patient thinks the new chemo is causing short of breath.Also having burning micturition. She also has some blood in the urine and she was told that the new medication will cause some blood in the urine. She has noticed some blood in the stool, which she thinks is from the stoma. She is resting comfortably and hemodynamically stable. When she is resting, she is okay. She is saturating okay on room air, but when she starts moving, she gets short of breath and weak. Appetite is not great. She stated she has gained some weight lately. Denies any chest pain. No cough. No fever, but has some chills. No headache. No dizziness. No blurred vision. She also has some runny nose. No sore throat. No cough. Sometimes gets nauseous. No abdominal pain. Sometimes gets constipated, but colostomy is working okay. She has chronic lower extremity edema. Lately she noticed some redness in the legs. Lives alone. Her sister lives about a few kilometers away from her. She has good neighbors. Sometimes, she cooks her own food. She can drive the car. ALLERGIES: MORPHINE. PAST MEDICAL HISTORY: As mentioned above. PAST SURGICAL HISTORY: Biopsy of the thigh, A-port insertion, laparoscopic cholecystectomy, removal of tonsils and adenoidectomy, total abdominal hysterectomy with removal of tubes, total hip replacement, status post transanal resection, status post repair with colostomy. MEDICATIONS: Currently, the patient is on regorafenib 40 mg 4 tablets once a day for 3 weeks followed by 1 week off, potassium chloride ER 10 mEq b.i.d., magnesium oxide 500 mg p.o. b.i.d., gabapentin 300 mg p.o. t.i.d., Lasix 20 mg daily p.r.n., vitamin D 5000 units p.o. daily and levothyroxine 175 mcg p.o. daily. FAMILY HISTORY: No family history on file. SOCIAL HISTORY: . Lives alone. No smoking history. No alcohol use. No drug use. REVIEW OF SYMPTOMS: As per HPI. Rest of review of systems negative. PHYSICAL EXAMINATION: GENERAL: The patient is of moderate build, not in acute distress. VITAL SIGNS: Temperature 36.9, pulse 107, respiratory rate 22, blood pressure 121/78 and oxygen 98% on room air. HEENT: No pallor. No icterus. Pupils are equal, round and reactive to light. NECK: No JVD. No neck masses. No carotid bruit. CARDIOVASCULAR: S1, S2 heard. Regular rate and rhythm. No murmur. No gallop. RESPIRATORY SYSTEM: Normal AP diameter. No thyromegaly. No wheezing. No crackles. ABDOMEN: Soft. Bowel sounds present. Nontender. No distention. CENTRAL NERVOUS SYSTEM: Cranial nerves II through XII grossly nonfocal. EXTREMITIES: Bilateral lower extremities with chronic lymphedema present and some erythematous changes seen. SKIN: Dry. LABORATORY DATA: WBC 9.5, hemoglobin 9.4, hematocrit 28.8 and platelets 183. PT 13.1, INR 1.3 and PTT 43.1. Sodium 131, potassium 3, chloride 96, bicarbonate 25, BUN 12, creatinine 0.8, serum glucose 83, calcium 7.2, magnesium 1.6, total bilirubin 1, AST 84, ALT 30 and alkaline phosphatase 402. Troponin I less than 0.015. BNP 329. Urinalysis positive for nitrite and leukocyte esterase. IMAGING: CT of the chest, no evidence of acute pulmonary embolism, multiple bilateral pulmonary nodules, several of which demonstrated cavitation. These findings are consistent with extensive pulmonary metastasis, pathological bilateral hilar lymphadenopathy, small left pleural effusion, ascites and multiple hepatic masses were thought to be consistent with metastatic disease. Chest x-ray, interval development of multiple bilateral pulmonary nodules, findings are consistent with metastatic disease and no evidence of lobar consolidation. Electrocardiogram, sinus tachycardia at a rate of 108. No left axis deviation. No acute ST changes seen. ASSESSMENT AND PLAN: This patient is a 58-year-old female who presents with shortness of breath on exertion and worsening lower extremity edema and erythema. 1. Shortness of breath. The patient is 3 weeks on and one week off on the new chemo. She also has multiple pulmonary nodules with cavitation concerning for metastatic disease, possible cause of shortness of breath. When she is resting, she is doing okay. She will get short of breath on exertion . May need to discuss with hematology/oncology. No pulmonary embolism on CAT scan. No infiltrates. No leukocytosis. Afebrile. The patient does not seem to have any echocardiogram on file. So, we will get an echocardiogram.May need two step at discharge. 2. Urinary tract infection. We will follow the cultures. Start on Rocephin. 3. Lower extremity lymphedema and possible cellulitis. Follows with lymphedema specialist for cellulitis and antibiotics as above. We will follow the response. 4. Metastatic rectal cancer, status post surgery and colostomy,s/p multiple chemo's, currently on Stivarga. Follow with hematology/oncology. 5. Hypertension, situational not on medication. We will monitor. 6. Hypothyroidism. Continue home Synthroid. 7. Hypokalemia. We will continue home potassium tablets. We will replace and follow the laboratories. 8. Hypomagnesemia. We will replace and continue home medications. 9. Lower extremity edema. We will check for DVT 10. Deep venous thrombosis prophylaxis. We will place the patient on heparin subQ and we will closely monitor. 11. Anemia. Hemoglobin 9.8, Seems at baseline. We will follow the laboratories. DISPOSITION: Closely monitor in the med/surg tele. Code status, Level 1 full code as per discussion with the patient. Physical therapy and occupational therapy prior to discharge. Social Service to help with discharge planning. [facility]
[2019-06-10] MEDS ORDERED: POTASSIUM CHLORIDE 10 MEQ TABCR PO STA (01:18)
[2019-06-10] MEDS ORDERED: POLYETHYLENE (MIRALAX) 17 GM PACK PO PRN (01:18)
[2019-06-10] MEDS ORDERED: NITROGLYCERIN SL 0.4 MG/TAB TAB SL PRN (01:18)
[2019-06-10] MEDS ORDERED: ONDANSETRON INJ 2 MG/ML 2 ML VIAL IV PRN (01:18)
[2019-06-10] MEDS ORDERED: FUROSEMIDE 20 MG TAB PO PRN (01:18)
[2019-06-10] MEDS ORDERED: ACETAMINOPHEN 325 MG TAB PO PRN (01:18)
[2019-06-10] MEDS ORDERED: MAGNESIUM SULFATE / D5W 1 GM/100 ML BAG IV ONE (01:18)
[2019-06-10] MEDS ORDERED: PATIENT'S HEIGHT AND/OR WEIGHT NEEDED SCH (01:30)
[2019-06-10] MEDS ORDERED: HEPARIN 100 UNIT/ML 5ML FLUSH FLUSH PRN (05:29)
[2019-06-10] MEDS: LEVOTHYROXINE SODIUM 175 MCG TABLET PO SCH (06:22)
[2019-06-10 06:31] LABS: Basophils # (auto) 0.01 K/uL (0-0.2); Basophils % (auto) 0.1 %; Eosinophils # (auto) 0.01 K/uL (0-0.5); Eosinophils % (auto) 0.1 %; Hematocrit (blood only) 26.5 % (37-47); Hemoglobin 8.6 g/dL (12.0-16.0); Immature Granulocytes # (auto) 0.04 K/uL (0.00-0.02); Immature Granulocytes % (auto) 0.4 %; Lymphocytes # (auto) 0.39 K/uL (1.2-3.4); Lymphocytes % (auto) 4.3 %; Mean Corpuscular Hgb Conc 32.5 g/dL (32-36); Mean Corpuscular Volume 81.5 fL (80-100); Mean Platelet Volume 8.4 fL (7.4-10.4); Monocytes # (auto) 1.31 K/uL (0.11-0.59); Monocytes % (auto) 14.4 %; Neutrophils # (auto) 7.32 K/uL (1.4-6.5); Neutrophils % (auto) 80.7 %; Platelet Count 156 K/uL (130-400); RDW Coefficient of Variation 20.7 % (11.5-14.5); RDW Standard Deviation 61.3 fL (36.4-46.3); Red Blood Count 3.25 M/uL (4.2-5.4); White Blood Count 9.08 K/uL (4.8-10.8)
--- NOTE | 2019-06-10 06:40 | Ultrasound Report ---
ULTRASOUND BILATERAL LOWER EXTREMITY VENOUS CLINICAL HISTORY: Lower extremity edema. COMPARISON STUDY: Bilateral lower extremity venous ultrasound dated 03/31/2019. TECHNIQUE: Real-time, grayscale, and color Doppler sonography of the deep veins of the right and left lower extremity was performed from the inguinal crease to the calf. Compression and augmentation wer e utilized. FINDINGS: There is no sonographic evidence of deep venous thrombosis identified in the right or left lower extremity. The common femoral, superficial femoral, and popliteal veins are patent and normally compressible bilaterally. The greater saphenous vein and the profunda femoris vein at the junction w ith the common femoral vein are clear in both legs. The visualized calf veins are patent bilaterally. Soft tissue edema is present in both legs. Pathologically enlarged and abnormal appearing inguinal l ymph nodes are again noted. IMPRESSION: 1. There is no sonographic evidence of deep venous thrombosis identified in the right or left lower e xtremity. 2. Pathological inguinal adenopathy is again noted. Electronically signed by: Filiberto Morin M.D. 06/10/2019 6:37 AM
[2019-06-10 06:50] LABS: Anisocytosis Present
[2019-06-10 07:11] LABS: BUN Creatinine Ratio 14.6 (10-20); Calcium 7.2 mg/dl (8.5-10.1); Creatinine Clr Calc Pharmacy 99.1 ml/min; Est GFR (African American) 94.3; Est GFR (Non-African American) 81.4; Magnesium 1.7 mg/dl (1.8-2.4); Potassium 3.1 mmol/L (3.5-5.1)
[2019-06-10] MEDS: MAGNESIUM OXIDE 400 MG TAB PO SCH ×2 (08:14→21:56)
[2019-06-10] MEDS: POTASSIUM CHLORIDE 10 MEQ TABCR PO SCH ×2 (08:15→21:56)
[2019-06-10] MEDS: GABAPENTIN 300 MG CAP PO SCH ×3 (08:16→21:56)
[2019-06-10] MEDS: CHOLECALCIFEROL 1,000 UNITS TAB PO SCH (08:16)
[2019-06-10] MEDS: HEPARIN SOD 5,000 UNIT/0.5 ML VIAL SQ SCH ×2 (08:16→21:55)
[2019-06-10] MEDS ORDERED: cefTRIAXone SODIUM 1,000 MG in DEXTROSE 5% 50 ML IV SCH (09:00)
[2019-06-10] MEDS ORDERED: PERFLUTREN LIPID MICROSPHERE (DEFINITY) IV ONE (10:00)
--- NOTE | 2019-06-10 11:02 | Hospitalist Progress Note ---
Date of Service June 10, 2019 Assessment & Plan (1) Shortness of breath: Presented with shortness of breath and seemed to be multifactorial Status post chemotherapy for metastatic adenocarcinoma and chronic anemia No CHF, pneumonia and/or pulmonary embolism Clinically better today Will observe Present on Admission?: Yes (2) Metastatic colon cancer in female: Status post surgery with colostomy in 2008 Ongoing chemotherapy-3 weeks on and 1 week off Management will be as per oncology (3) UTI (urinary tract infection): Noted to have UTI Likely contributing her weakness Has been on ceftriaxone Await full sensitivity Present on Admission?: Yes (4) Hypokalemia: Has lipid imbalance with hypokalemia, hypomagnesemia and likely has hypophosphatemia Will replace and monitor (5) Lymphedema of lower extremity: Chronic lymphedema both legs, right more than the left Increasing redness right lower leg, no deep venous thrombosis Likely developing cellulitis Has been on intravenous ceftriaxone Will observe the lesion and if progressing we will change antibiotic DVT prophylaxis Subcu heparin CODE STATUS Full Subjective 06/10 The patient was seen and examined in medical telemetry unit She was admitted yesterday with shortness of breath and weakness and status post chemotherapy about 3 weeks ago secondary to metastatic adenocarcinoma of the rectum He has been feeling much better today and denies any significant symptoms except weakness She denies any chest pain and/or palpitation, any fever or chills, and her shortness of breath has improved Review of Systems Review of Systems: All systems reviewed and are unremarkable except as noted below Constitutional: + fatigue, + malaise, + weakness and + anorexia Respiratory: no cough and no dyspnea (No dyspnea at rest) Gastrointestinal: no abdominal pain Genitourinary: no dysuria and no urinary urgency Physical Exam Physical Exam: Lying in bed with minimal distress Constitutional: + ill appearing and + thin; no acute distress Respiratory: normal respiratory effort; no respiratory distress Auscultation: + diminished lung sounds and + crackles (Scattered) Cardiovascular: Rate/Rhythm: regular rate and regular rhythm Heart Sounds: no murmur Gastrointestinal (Abdomen): Inspection/Auscultation: abdomen normal to inspection and normal bowel sounds Percussion/Palpation: abdomen soft Musculoskeletal: No acute arthritis in any of the joint Neurologic: moves all extremities; no focal motor deficits Lymphatic: + lymphadenopathy (Inguinal, left more than right) Results & Data Vital Signs (Past 12 Hours) Vital Signs Temp Pulse Pulse Resp BP BP Pulse Ox 06/10/19 10:01 98 06/10/19 07:14 96 H 06/10/19 07:00 36.7 C 97 H 20 106/71 98 06/10/19 03:35 36.6 C 99 H 20 116/77 98 06/10/19 02:35 108 H 06/10/19 01:49 36.9 C 108 H 18 122/78 96 06/10/19 01:28 36.9 C 108 H 18 122/78 96 06/10/19 01:18 06/10/19 00:39 110 H 16 118/72 100 06/10/19 00:30 107 H 19 96 06/10/19 00:00 107 H 19 117/87 99 06/09/19 23:30 104 H 24 99 06/09/19 23:04 107 H 22 98 Pulse Ox 06/10/19 10:01 06/10/19 07:14 06/10/19 07:00 06/10/19 03:35 06/10/19 02:35 06/10/19 01:49 06/10/19 01:28 06/10/19 01:18 96 06/10/19 00:39 06/10/19 00:30 06/10/19 00:00 06/09/19 23:30 06/09/19 23:04 Laboratory Results Short CBC 06/09/19 06/10/19 Range/Units 20:56 06:16 WBC 9.51 9.08 (4.8-10.8) K/uL Hgb 9.4 L 8.6 L (12.0-16.0) g/dL Hct 28.8 L 26.5 L (37-47) % Plt Count 183 156 (130-400) K/uL BMP 06/09/19 06/10/19 20:56 06:16 Sodium 131 L 132 L Potassium 3.0 L 3.1 L Chloride 96 L 98 Carbon Dioxide 25 27 BUN 12 12 Creatinine 0.80 0.79 Glucose 83 85 Calcium 7.2 L 7.2 L Cardiac Enzymes 06/09/19 Range/Units 20:56 Troponin I < 0.015 (0-0.045) ng/ml Liver Function 06/09/19 Range/Units 20:56 Total Bilirubin 1.0 (0.2-1) mg/dl AST 84 H (15-37) U/L ALT 30 (12-78) U/L Alkaline Phosphatase 402 H (45-117) U/L Albumin 1.2 L (3.4-5.0) gm/dl Urine 06/09/19 Range/Units 20:56 Urine Color Yellow Urine Appearance Cloudy A (Clear) Urine pH 5.5 (4.5-7.5) Ur Specific [place] 1.013 (1.000-1.030) Urine Protein Negative (Negative) Urine Glucose (UA) Negative (Negative) Medications Administered Current Inpatient Medications Acetaminophen (Tylenol) 650 mg PO Q4H PRN PRN Reason: Pain or Fever Stop: 07/10/19 01:17 Furosemide (Lasix) 20 mg PO DAILY PRN PRN Reason: Fluid Retention Stop: 07/10/19 01:17 Gabapentin (Neurontin) 300 mg PO TID [facility] Stop: 07/10/19 08:59 Last Admin: 06/10/19 08:16 Dose: 300 mg Documented by: Heparin Sodium (Porcine) (Heparin Sodium (Porcine)) 5,000 units SQ Q12 [facility] Stop: 07/10/19 08:59 Last Admin: 06/10/19 08:16 Dose: Not Given Documented by: Heparin Sodium (Porcine) (Heparin Sod 100 Unit/Ml Flush) 5 ml FLUSH PRN PRN PRN Reason: Flush Stop: 07/10/19 05:29 Last Admin: 06/10/19 06:15 Dose: 5 ml Documented by: Ceftriaxone Sodium 2,000 mg/ (Dextrose) 70 mls @ 140 mls/hr IV Q24H [facility] Stop: 06/18/19 21:29 Levothyroxine Sodium (Synthroid) 175 mcg PO DAILYBB [facility] Stop: 07/10/19 06:29 Last Admin: 06/10/19 06:22 Dose: 175 mcg Documented by: Magnesium Oxide (Mag-Ox) 800 mg PO BID [facility] Stop: 07/10/19 08:59 Last Admin: 06/10/19 08:14 Dose: 800 mg Documented by: Nitroglycerin (Nitrostat) 0.4 mg SL UD PRN PRN Reason: Chest Pain Stop: 07/10/19 01:17 Ondansetron HCl (Zofran) 4 mg IV Q6H PRN PRN Reason: Nausea Stop: 07/10/19 01:17 Polyethylene Glycol (Miralax Powder Packet) 17 gm PO DAILY PRN PRN Reason: Constipation Stop: 07/10/19 01:17 Potassium Chloride (Klor-Con M10) 10 meq PO BID [facility] Stop: 07/10/19 08:59 Last Admin: 06/10/19 08:15 Dose: 10 meq Documented by: Vitamin D (Vitamin D3) 5,000 units PO DAILY [facility] Stop: 07/10/19 08:59 Last Admin: 06/10/19 08:16 Dose: 5,000 units Documented by: (1) UTI (urinary tract infection) Hematuria presence: without hematuria Urinary tract infection type: acute cystitis Qualified Code(s): N30.00 - Acute cystitis without hematuria
[2019-06-10] MEDS ORDERED: POTASSIUM CHLORIDE 20 MEQ TABCR PO STA (11:03)
[2019-06-10] MEDS ORDERED: cefTRIAXone SODIUM 2,000 MG in DEXTROSE 5% 50 ML IV SCH (21:00)
[2019-06-10] MEDS ORDERED: MAGNESIUM OXIDE 400 MG TAB PO ONE (21:52)
[2019-06-11] MEDS: LEVOTHYROXINE SODIUM 175 MCG TABLET PO SCH (05:50)
[2019-06-11] MEDS: CHOLECALCIFEROL 1,000 UNITS TAB PO SCH (07:50)
[2019-06-11] MEDS: MAGNESIUM OXIDE 400 MG TAB PO SCH (07:50)
[2019-06-11] MEDS: GABAPENTIN 300 MG CAP PO SCH ×2 (07:50→13:40)
[2019-06-11] MEDS: HEPARIN SOD 5,000 UNIT/0.5 ML VIAL SQ SCH (07:51)
[2019-06-11] MEDS: POTASSIUM CHLORIDE 10 MEQ TABCR PO SCH (08:27)
[2019-06-11] MEDS ORDERED: POTASSIUM CHLORIDE 20 MEQ TABCR PO STA (13:32)
--- NOTE | 2019-06-11 13:56 | Hospitalist Progress Note ---
Date of Service June 11, 2019 Assessment & Plan (1) Shortness of breath: Presented with shortness of breath and seemed to be multifactorial Status post chemotherapy for metastatic adenocarcinoma and chronic anemia No CHF, pneumonia and/or pulmonary embolism Clinically better today Will observe Denies any more shortness of breath Echo of the heart: Normal LV chamber size and wall thickness, normal LV systolic function with EF of 6665%, no segmental left ventricular wall motion abnorma lities, grade 1 diastolic dysfunction and aortic valve sclerosis without any aortic stenosis. (2) Metastatic colon cancer in female: Status post surgery with colostomy in 2008 Ongoing chemotherapy-3 weeks on and 1 week off Management will be as per oncology Advised to keep appointment with Dr. Maxwell (3) UTI (urinary tract infection): Noted to have UTI Likely contributing her weakness Has been on ceftriaxone Await full sensitivity Urine culture grew Klebsiella pneumoniae and that is pansensitive We will prescribe Keflex to continue for the next 7 days (4) Hypokalemia: Has lipid imbalance with hypokalemia, hypomagnesemia and likely has hypophosphatemia Will replace and monitor Has been on potassium supplement (5) Lymphedema of lower extremity: Chronic lymphedema both legs, right more than the left Increasing redness right lower leg, no deep venous thrombosis Likely developing cellulitis Has been on intravenous ceftriaxone Will observe the lesion and if progressing we will change antibiotic Redness in the right lower extremity has been improving DVT prophylaxis Subcu heparin CODE STATUS Full Discharge home today Subjective 06/10 The patient was seen and examined in medical telemetry unit She was admitted yesterday with shortness of breath and weakness and status post chemotherapy about 3 weeks ago secondary to metastatic adenocarcinoma of the rectum He has been feeling much better today and denies any significant symptoms except weakness She denies any chest pain and/or palpitation, any fever or chills, and her shortness of breath has improved 06/11 Patient was seen and examined in medical floor She remains generally weak but denies any other symptoms No more dysuria and/or frequency and no nausea and vomiting She has been ambulating well Review of Systems Review of Systems: All systems reviewed and are unremarkable except as noted below Constitutional: + fatigue, + malaise, + weakness and + anorexia Physical Exam Physical Exam: Sitting on a chair out of bed without any symptoms Constitutional: + ill appearing and + thin; no acute distress Respiratory: normal respiratory effort; no respiratory distress Auscultation: + diminished lung sounds and + crackles (Scattered) Cardiovascular: Rate/Rhythm: regular rate and regular rhythm Heart Sounds: no murmur Gastrointestinal (Abdomen): Inspection/Auscultation: abdomen normal to inspection and normal bowel sounds Percussion/Palpation: abdomen soft Musculoskeletal: No acute arthritis in any of the joints Neurologic: moves all extremities; no focal motor deficits Lymphatic: + lymphadenopathy (Inguinal, left more than right) and + lymphedema (Has bilateral lymphedema more on the left the right side) No evidence of cellulitis involving the right leg Results & Data Vital Signs (Past 12 Hours) Vital Signs Temp Pulse Resp BP BP Pulse Ox 06/11/19 11:14 36.5 C 74 20 103/71 95 06/11/19 07:24 36.8 C 91 H 16 112/76 97 06/11/19 04:42 36.8 C 90 20 102/69 97 Medications Administered Current Inpatient Medications Acetaminophen (Tylenol) 650 mg PO Q4H PRN PRN Reason: Pain or Fever Stop: 07/10/19 01:17 Furosemide (Lasix) 20 mg PO DAILY PRN PRN Reason: Fluid Retention Stop: 07/10/19 01:17 Gabapentin (Neurontin) 300 mg PO TID [facility] Stop: 07/10/19 08:59 Last Admin: 06/11/19 13:40 Dose: 300 mg Documented by: Heparin Sodium (Porcine) (Heparin Sodium (Porcine)) 5,000 units SQ Q12 [facility] Stop: 07/10/19 08:59 Last Admin: 06/11/19 07:51 Dose: Not Given Documented by: Heparin Sodium (Porcine) (Heparin Sod 100 Unit/Ml Flush) 5 ml FLUSH PRN PRN PRN Reason: Flush Stop: 07/10/19 05:29 Last Admin: 06/10/19 06:15 Dose: 5 ml Documented by: Ceftriaxone Sodium 2,000 mg/ (Dextrose) 70 mls @ 140 mls/hr IV Q24H [facility] Stop: 06/18/19 21:29 Last Infusion: 06/10/19 22:47 Dose: Infused Documented by: Levothyroxine Sodium (Synthroid) 175 mcg PO DAILYBB [facility] Stop: 07/10/19 06:29 Last Admin: 06/11/19 05:50 Dose: 175 mcg Documented by: Magnesium Oxide (Mag-Ox) 800 mg PO BID [facility] Stop: 07/10/19 08:59 Last Admin: 06/11/19 07:50 Dose: 800 mg Documented by: Nitroglycerin (Nitrostat) 0.4 mg SL UD PRN PRN Reason: Chest Pain Stop: 07/10/19 01:17 Ondansetron HCl (Zofran) 4 mg IV Q6H PRN PRN Reason: Nausea Stop: 07/10/19 01:17 Polyethylene Glycol (Miralax Powder Packet) 17 gm PO DAILY PRN PRN Reason: Constipation Stop: 07/10/19 01:17 Potassium Chloride (Klor-Con M10) 10 meq PO BID [facility] Stop: 07/10/19 08:59 Last Admin: 06/11/19 08:27 Dose: 10 meq Documented by: Vitamin D (Vitamin D3) 5,000 units PO DAILY [facility] Stop: 07/10/19 08:59 Last Admin: 06/11/19 07:50 Dose: 5,000 units Documented by: (1) UTI (urinary tract infection) Hematuria presence: without hematuria Urinary tract infection type: acute cystitis Qualified Code(s): N30.00 - Acute cystitis without hematuria
[2019-06-11] MEDS ORDERED: cephALEXin 250 MG CAP PO ONE (15:45)
--- NOTE | 2019-06-12 19:20 | Discharge Summary ---
Date of Service June 12, 2019 Admission HPI Per Admitting Provider DICTATED BY: Antonio Sorenson MD DATE OF ADMISSION: 06/09/2019 CHIEF COMPLAINT: Shortness of breath, weakness. HISTORY OF PRESENT ILLNESS: This is a 58-year-old female with past medical history significant for adenocarcinoma of the rectum, initial diagnosis in 2006, status post transanal resection followed by Xeloda and radiation treatment with local recurrent disease noted in 2008, status post APR with colostomy and then extensive recurrent disease noted in the pelvis, retroperitoneal lymph node region, status post resection at [facility]. She had received several chemotherapy treatments since 2006, in 04/2019 she was started on new chemo regorafenib, will be on it for 3 weeks and then one week off.It was held for blisters in hands. She also chronic bilateral lower extremity edema with lymphedema, follows with lymphedema specialist .Currently regorafenib again was restarted last month. She takes 3 weeks and 1 week off. Currently on off week. She also has a history of chemotherapy-induced neuropathy and elevated blood pressure situational. Currently, she has a history of liver metastasis and pulmonary metastasis and presents with shortness of breath . Patient thinks the new chemo is causing short of breath.Also having burning micturition. She also has some blood in the urine and she was told that the new medication will cause some blood in the urine. She has noticed some blood in the stool, which she thinks is from the stoma. She is resting comfortably and hemodynamically stable. When she is resting, she is okay. She is saturating okay on room air, but when she starts moving, she gets short of breath and weak. Appetite is not great. She stated she has gained some weight lately. Denies any chest pain. No cough. No fever, but has some chills. No headache. No dizziness. No blurred vision. She also has some runny nose. No sore throat. No cough. Sometimes gets nauseous. No abdominal pain. Sometimes gets constipated, but colostomy is working okay. She has chronic lower extremity edema. Lately she noticed some redness in the legs. Lives alone. Her sister lives about a few kilometers away from her. She has good neighbors. Sometimes, she cooks her own food. She can drive the car. Admission Exam Per Admitting Provider GENERAL: The patient is of moderate build, not in acute distress. VITAL SIGNS: Temperature 36.9, pulse 107, respiratory rate 22, blood pressure 121/78 and oxygen 98% on room air. HEENT: No pallor. No icterus. Pupils are equal, round and reactive to light. NECK: No JVD. No neck masses. No carotid bruit. CARDIOVASCULAR: S1, S2 heard. Regular rate and rhythm. No murmur. No gallop. RESPIRATORY SYSTEM: Normal AP diameter. No thyromegaly. No wheezing. No crackles. ABDOMEN: Soft. Bowel sounds present. Nontender. No distention. CENTRAL NERVOUS SYSTEM: Cranial nerves II through XII grossly nonfocal. EXTREMITIES: Bilateral lower extremities with chronic lymphedema present and some erythematous changes seen. SKIN: Dry. Principal Diagnosis Generalized weakness, shortness of breath, UTI, metastatic colon cancer, lower extremities lymphedema Discharge Exam Constitutional + ill appearing and + thin; no acute distress Respiratory normal respiratory effort; no respiratory distress Auscultation: + diminished lung sounds and + crackles (Scattered) Cardiovascular Rate/Rhythm: regular rate and regular rhythm Heart Sounds: no murmur Gastrointestinal (Abdomen) Inspection/Auscultation: abdomen normal to inspection and normal bowel sounds Percussion/Palpation: abdomen soft Neurologic moves all extremities; no focal motor deficits Lymphatic + lymphadenopathy (Inguinal, left more than right) and + lymphedema (Has bilateral lymphedema more on the left the right side) Discharge Data Allergies Allergy/AdvReac Type Severity Reaction Status Date / Time morphine AdvReac Intermediate GI Verified 06/09/19 20:53 SYMPTOMS, CAUSES Nausea and vomitting Consultations 06/09/19 23:00 ED Decision to Admit Stat 06/10/19 01:18 Consult Case Management - Discharge Planning Routine Ordered Studies 06/09/19 21:53 CT angio chest PE protocol Stat 06/10/19 01:18 US venous doppler LE Routine Hospital Course (1) Shortness of breath: Presented with shortness of breath and seemed to be multifactorial Status post chemotherapy for metastatic adenocarcinoma and chronic anemia No CHF, pneumonia and/or pulmonary embolism Clinically better today Will observe Denies any more shortness of breath Echo of the heart: Normal LV chamber size and wall thickness, normal LV systolic function with EF of 6665%, no segmental left ventricular wall motion abnormalities, grade 1 diastolic dysfunction and aortic valve sclerosis without any aortic stenosis. (2) Metastatic colon cancer in female: Status post surgery with colostomy in 2008 Ongoing chemotherapy-3 weeks on and 1 week off Management will be as per oncology Advised to keep appointment with Dr. Maxwell (3) UTI (urinary tract infection): Noted to have UTI Likely contributing her weakness Has been on ceftriaxone Await full sensitivity Urine culture grew Klebsiella pneumoniae and that is pansensitive We will prescribe Keflex to continue for the next 7 days (4) Hypokalemia: Has lipid imbalance with hypokalemia, hypomagnesemia and likely has hypophosphatemia Will replace and monitor Has been on potassium supplement (5) Lymphedema of lower extremity: Chronic lymphedema both legs, right more than the left Increasing redness right lower leg, no deep venous thrombosis Likely developing cellulitis Has been on intravenous ceftriaxone Will observe the lesion and if progressing we will change antibiotic Redness in the right lower extremity has been improving DVT prophylaxis Subcu heparin CODE STATUS Full Discharge home today Total Time Total Time Spent Total Time Spent (In Minutes): 35 minutes Total Time Includes: Examination of the Patient, Discharge Planning, Medication Reconciliation and Communication With Other Providers Discharge Plan Discharge Items Patient Disposition: Home - Self-Care Reason For Visit: SOB Discharge Diagnosis: Generalized weakness, shortness of breath, UTI, metastatic colon cancer, lower extremities lymphedema Condition: Fair Discharge Goals: Decrease discomfort, Improve function and Increase independence Activity: Resume your previous activity Non-emergency contact: Primary Care Provider Call non-emergency contact if: you have any medication questions and your symptoms worsen Follow-up/Referrals: Diogenes Garcia [Primary Care Provider] - 06/14/19 12:00 pm (Please keep your appointment with Dr. Maxwell. She will need to have a referral to lymphedema clinic.) Diet: Heart Healthy Addtl Provider Instructions: Please take precaution to avoid falls Finish the course of antibiotic Take your potassium supplement Keep appointments with your oncologist Prescriptions: New cephalexin [Keflex] 500 mg capsule 500 mg PO BID 7 Days Qty: 14 RF: 0 Lactinex 1 million cell tablet,chewable 2 tab PO BID Qty: 30 RF: 0 Continued potassium chloride [Klor-Con M10] 10 mEq tablet,ER particles/crystals 10 meq PO BID RF: 0 gabapentin 300 mg capsule 300 mg PO TID RF: 0 furosemide 20 mg tablet 20 mg PO DAILY PRN (Reason: Fluid Retention) RF: 0 levothyroxine 175 mcg Tablet 175 mcg PO DAILY RF: 0 cholecalciferol (vitamin D3) 5,000 unit Tablet 5,000 unit PO DAILY RF: 0 Stivarga 40 mg Tablet 120 mg PO UD RF: 0 magnesium oxide 240 mg magnesium Powder In Packet 800 mg PO BID RF: 0 Stand-Alone Forms: [facility] Discharge Orders: Discharge Order (Routine); Ordered 06/11/19 Ordered By: Luisana Child Admission Data Admit Date/Time: 06/09/19 23:56 Attending Provider: Luisana Child Admit Provider: Antonio Sorenson Primary Care Provider: Diogenes Garcia Other Providers: Antonio Sorenson Service: Telemetry Medical Other Interventions: Discharge Summary Assessment (RN) Last Done: 06/11/19 15:00 DC Date/Time DO NOT enter until pt leaves facility: 06/11/19 17:25
== END 2019-06-11 17:25 | disposition home or self-care (01) | DRG 181 ==
LOC: ED 20:11 → 2N 23:56
DX: L03.115 Cellulitis of right lower limb; B96.1 Klebsiella pneumoniae [K. pneumoniae] as the cause of diseases classified elsewhere; C78.00 Secondary malignant neoplasm of unspecified lung; E83.42 Hypomagnesemia; Z92.3 Personal history of irradiation; E87.1 Hypo-osmolality and hyponatremia; T45.1X5A Adverse effect of antineoplastic and immunosuppressive drugs, initial encounter; Z93.3 Colostomy status; E87.6 Hypokalemia; C77.5 Secondary and unspecified malignant neoplasm of intrapelvic lymph nodes; G62.0 Drug-induced polyneuropathy; Z77.22 Contact with and (suspected) exposure to environmental tobacco smoke (acute) (chronic); D64.9 Anemia, unspecified; E03.9 Hypothyroidism, unspecified; N39.0 Urinary tract infection, site not specified; Z85.048 Personal history of other malignant neoplasm of rectum, rectosigmoid junction, and anus; Y92.009 Unspecified place in unspecified non-institutional (private) residence as the place of occurrence of the external cause; C77.2 Secondary and unspecified malignant neoplasm of intra-abdominal lymph nodes